=== PATIENT | female | born 1950 | race Caucasian/White ===

== ENCOUNTER → 2018-05-20 | Outpatient (CLI) | payer MEDICARE, OTHER ==
--- NOTE | 2018-05-20 15:49 | REP ---
Chest x-ray: Two views. History: Chest and back pain. Findings: The patient is status post median sternotomy and aortic valve replacement. The lungs are well inflated and clear. Pleural angles are sharp. Heart size is normal. The aorta is somewhat tortuous. There are degenerative changes in the thoracic spine. Impression: Status post aortic valve replacement. Otherwise no active disease. Electronically Signed by Dom Deluca MD 05/20/2018 03:40 P
== END ==
LOC: M RAD 15:15
PROVIDERS: ATTEND Physician Assistant
DX: M54.5 Low back pain (principal); R07.9 Chest pain, unspecified

== ENCOUNTER → 2018-06-04 | Outpatient (REF) | payer MEDICARE, OTHER ==
[2018-06-04 10:11] LABS: HEMATOCRIT 39.2 % (36.0-47.0); HEMOGLOBIN 12.6 g/dl (12.0-15.5); MEAN CORPUSCULAR HEMOGLOBIN 31.5 pg (27.0-33.0); MEAN CORPUSCULAR HGB CONC 32.1 g/dl (32.0-36.5); PLATELET COUNT, AUTOMATED 197 10^3/uL (150-450); WHITE BLOOD COUNT 5.2 10^3/uL (4.0-10.0)
[2018-06-04 10:29] LABS: ERYTHROCYTE SEDIMENTATION RATE 5 mm/hr (0-30)
[2018-06-04 10:34] LABS: ALBUMIN 3.6 GM/DL (3.2-5.2); ALT/SGPT 28 U/L (12-78); BILIRUBIN,TOTAL 0.3 MG/DL (0.2-1.0); BLOOD UREA NITROGEN 14 MG/DL (7-18); CALCIUM LEVEL 8.3 MG/DL (8.8-10.2); CARBON DIOXIDE LEVEL 28 MEQ/L (21-32); CHLORIDE LEVEL 110 MEQ/L (98-107); CHOLESTEROL LEVEL 233 MG/DL (<200); CHOLESTEROL RISK RATIO 2.198 (<5); CREATININE FOR GFR 0.78 MG/DL (0.55-1.30); GLOMERULAR FILTRATION RATE > 60.0 (>45); GLUCOSE, FASTING 84 MG/DL (70-100); HDL CHOLESTEROL 106 MG/DL (>40); LDL CHOLESTEROL 113 MG/DL (<100); NON-HDL-C 127 MG/DL; POTASSIUM SERUM 4.1 MEQ/L (3.5-5.1); SODIUM LEVEL 146 MEQ/L (136-145); TRIGLYCERIDES LEVEL 69 MG/DL (<150)
[2018-06-04 11:52] LABS: TOTAL 25(OH) VITAMIN D 53.8 NG/ML (30.0-100.0); VITAMIN B12 LEVEL 258 PG/ML
[2018-06-04 11:54] LABS: FOLATE 15.1 NG/ML
== END ==
LOC: M SFHCPLAZ 08:11
PROVIDERS: ATTEND Nurse Practitioner Family
DX: J30.89 Other allergic rhinitis (principal); L40.50 Arthropathic psoriasis, unspecified; M45.0 Ankylosing spondylitis of multiple sites in spine; E78.2 Mixed hyperlipidemia; R41.89 Other symptoms and signs involving cognitive functions and awareness

== ENCOUNTER 2018-06-21 08:22 | Emergency (ER) | payer MEDICARE, OTHER ==
[~2018-06-21] VITALS: Ht 165.1 cm; Wt 72.7 kg
[2018-06-21 08:52] LABS: BASO % 0.7 % (0.0-1.0); EOS % 0.7 % (0.0-3.0); HEMOGLOBIN 13.1 g/dl (12.0-15.5); LYMPH # 0.3 10^3/uL (1.5-4.5); MEAN CORPUSCULAR HEMOGLOBIN 32.3 pg (27.0-33.0); MEAN CORPUSCULAR HGB CONC 33.6 g/dl (32.0-36.5); MEAN CORPUSCULAR VOLUME 96.3 fl (80.0-96.0); MONO # 0.4 10^3/uL (0.0-0.8); MONO % 8.2 % (0.0-5.0); NEUTROPHILS # 3.5 10^3/uL (1.8-7.7); NEUTROPHILS % 82.9 % (36.0-66.0); PLATELET COUNT, AUTOMATED 148 10^3/uL (150-450); RED BLOOD COUNT 4.05 10^6/uL (4.00-5.40); WHITE BLOOD COUNT 4.3 10^3/uL (4.0-10.0)
[2018-06-21] MEDS ORDERED: ACETAMINOPHEN TAB 650MG DOSE (2X325MG) PO ONE (09:00)
--- NOTE | 2018-06-21 09:03 | REP ---
CHEST, PORTABLE, SINGLE VIEW: COMPARISON: 05/20/2018 There is no evidence of acute infiltrate. No pleural effusion is seen. The heart is normal in size. The mediastinal silhouette is unremarkable. The visualized osseous structures are intact. Sternal wires are present. IMPRESSION: No acute pulmonary disease. Electronically Signed by Eric Duran MD 06/21/2018 05:36 P
[2018-06-21 09:20] LABS: ALBUMIN 3.6 GM/DL (3.2-5.2); ALT/SGPT 26 U/L (12-78); BILIRUBIN,DIRECT 0.1 MG/DL (0.0-0.2); BILIRUBIN,TOTAL 0.4 MG/DL (0.2-1.0); BLOOD UREA NITROGEN 7 MG/DL (7-18); CALCIUM LEVEL 8.5 MG/DL (8.8-10.2); CARBON DIOXIDE LEVEL 21 MEQ/L (21-32); CHLORIDE LEVEL 103 MEQ/L (98-107); CK-MB VALUE MASS < 1.0 NG/ML (<3.6); CPK CREATINE PHOSPHOKINASE 61 U/L (26-192); CREATININE FOR GFR 0.76 MG/DL (0.55-1.30); FREE T4 1.03 NG/DL (0.76-1.46); GLOMERULAR FILTRATION RATE > 60.0 (>45); GLUCOSE, FASTING 99 MG/DL (70-100); LIPASE 88 U/L (73-393); MB/CK RELATIVE INDEX 1.64 (< OR =4); NT-PRO BNP 889 PG/ML (<125); POTASSIUM SERUM 3.9 MEQ/L (3.5-5.1); SODIUM LEVEL 132 MEQ/L (136-145); TOTAL PROTEIN 6.5 GM/DL (6.4-8.2); TROPONIN I < 0.02 NG/ML (< 0.10)
[2018-06-21 09:21] LABS: INFLUENZA A AMPLIFICATION POSITIVE (NEGATIVE); INFLUENZA B AMPLIFICATION NEGATIVE (NEGATIVE)
[2018-06-21] MEDS ORDERED: FLUO40CA PO (09:24)
[2018-06-21] MEDS ORDERED: VITA200016 PO (09:24)
[2018-06-21] MEDS ORDERED: TOPI100T9 PO (09:24)
[2018-06-21] MEDS ORDERED: AZEL1SPR3 NARES (09:24)
[2018-06-21] MEDS ORDERED: WARF-23 PO (09:24)
[2018-06-21] MEDS ORDERED: DONETAB6 PO (09:24)
[2018-06-21] MEDS ORDERED: PRAZ5CAP PO (09:24)
[2018-06-21] MEDS ORDERED: BELS1TAB PO (09:24)
[2018-06-21] MEDS ORDERED: LEVOTAB10 PO (09:24)
[2018-06-21] MEDS ORDERED: TRAM50TA2 PO (09:24)
[2018-06-21] MEDS ORDERED: LIVA1TAB PO (09:24)
[2018-06-21] MEDS ORDERED: CENTCHW3 PO (09:24)
[2018-06-21] MEDS ORDERED: FLUTISP NARES (09:24)
[2018-06-21 09:45] LABS: INR 2.03; PROTHROMBIN TIME 23.3 SECONDS (12.1-14.4)
[2018-06-21] MEDS ORDERED: OSELTAMIVIR PHOSPHATE 75 MG CAP (TAMIFLU) PO ONE (09:45)
[2018-06-21 09:46] LABS: PARTIAL THROMBOPLASTIN TIME 49.5 SECONDS (25.4-37.6)
[2018-06-21] MEDS ORDERED: ISOVUE-370 76% 100ML VIAL (Q9967) As Ordered ONE (10:14)
[2018-06-21] MEDS ORDERED: OSEL75CA PO (11:02)
--- NOTE | 2018-06-21 11:20 | REP ---
CT ANGIOGRAM CHEST: TECHNIQUE: Axial contrast enhanced images from the thoracic inlet to the upper abdomen using 100 mL Isovue 370 intravenous contrast material with multiplanar reformations. There is no CT evidence of pulmonary embolism. There is no thoracic aortic aneurysm or dissection with mild scattered atherosclerotic calcifications. There is mild cardiomegaly. There is no pleural or pericardial effusion. No significant adenopathy is seen in the chest. Scattered fibrotic changes are seen in both lungs without consolidative opacity. There has been prior gastric surgery. There are degenerative changes of the spine. IMPRESSION: No CT evidence of pulmonary embolism or aortic dissection. Scattered fibrotic changes in both lungs. Mild cardiomegaly. Electronically Signed by Eric Duran MD 06/21/2018 05:39 P
[2018-06-21 12:32] VITALS: BP 135/58
--- NOTE | 2018-06-21 19:43 | ECGEPIP ---
Stationary ECG Study 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
== END 2018-06-21 12:33 | disposition home or self-care (01) ==
LOC: M ED 08:22
DX: J09.X2 Influenza due to identified novel influenza A virus with other respiratory manifestations (principal); J32.9 Chronic sinusitis, unspecified; R07.9 Chest pain, unspecified; R06.02 Shortness of breath; E78.9 Disorder of lipoprotein metabolism, unspecified; G43.909 Migraine, unspecified, not intractable, without status migrainosus; Z79.899 Other long term (current) drug therapy
CPT/HCPCS: 36415; 71045; 71275; 80048; 80076; 82550; 82553; 83690; 83880; 84439; 84443; 84484; 85025; 85610; 85730; 87502; 93005; 93041; 94760; 99285; Q9967

== ENCOUNTER → 2018-07-27 | Outpatient (CLI) | payer MEDICARE, OTHER ==
[~2018-07-27] MED LIST: AZEL1SPR3 NARES; BELS1TAB PO; CENTCHW3 PO; DONETAB6 PO; FLUO40CA PO; FLUTISP NARES; LEVOTAB10 PO; LIVA1TAB PO; OSEL75CA PO; PRAZ5CAP PO; TOPI100T9 PO; TRAM50TA2 PO; VITA200016 PO; WARF-23 PO
== END ==
LOC: M RAD 15:26
PROVIDERS: ATTEND Nurse Practitioner Family
DX: R55 Syncope and collapse (principal); Z53.8 Procedure and treatment not carried out for other reasons

== ENCOUNTER → 2018-07-27 | Outpatient (CLI) | payer MEDICARE, OTHER ==
[~2018-07-27] MED LIST changes: +VITA100T12 PO; +ZOLP6.25 PO
--- NOTE | 2018-07-27 17:06 | REP ---
CT study of the cervical spine without contrast: History: Unspecified fall. Neck pain. No comparison cervical spine imaging. Technique: Helical scanning is acquired and overlapping 2 mm high resolution axial images were generated and reviewed at bone and soft tissue window settings. Coronal and sagittal multiplanar re-formations images are generated. CT findings: There are degenerative disc disease changes at C5-6, C6-7, and, to some degree at C7-T1. There is a central focal disc protrusion with associated spurring at the C6-7 level indenting the ventral margin of the spinal canal. Osteoarthritic facet disease is seen throughout the mid cervical spine facets bilaterally. There is osteoarthritis at the C1-C2 articulation. There is no evidence of cervical spine element fracture. No skull base fracture is seen. Cervical vertebral body heights are preserved. Alignment is normal. Facet joints are normally aligned bilaterally at each cervical level on multiplanar re-formations images. There is no evidence of intraspinal or paraspinal hematoma. No extra vertebral abnormality is seen. Impression: Fairly advanced degenerative spondylosis. Otherwise negative CT study of the cervical spine without contrast. No fracture seen. Electronically Signed by Dom Deluca MD 07/27/2018 04:58 P
--- NOTE | 2018-07-27 17:08 | REP ---
CT of the brain without IV contrast: There are no comparisons. There is no subdural or epidural hematoma. There is no intraparenchymal or subarachnoid hemorrhage. There is no edema, mass effect or midline shift. The ventricles are normal size and midline. The visualized paranasal sinuses and mastoid air cells are clear. Impression: There is no acute hemorrhage. There is no edema, mass effect or midline shift. Essentially negative CT study of the brain. Electronically Signed by Eric Abreu MD 07/27/2018 04:59 P
== END ==
LOC: M RAD 16:14
PROVIDERS: ATTEND Nurse Practitioner Family
DX: M47.892 Other spondylosis, cervical region (principal); R55 Syncope and collapse; W19.XXXA Unspecified fall, initial encounter; Y92.009 Unspecified place in unspecified non-institutional (private) residence as the place of occurrence of the external cause
CPT/HCPCS: 70450; 72125; 85610; G0463

== ENCOUNTER 2018-08-02 15:23 | Emergency (ER) | payer MEDICARE, OTHER ==
[~2018-08-02] VITALS: Ht 165.1 cm; Wt 72.7 kg
[~2018-08-02 15:23] MED LIST changes: -VITA100T12 PO; -ZOLP6.25 PO
[2018-08-02] MEDS ORDERED: ZOLP6.25 PO (16:04)
[2018-08-02] MEDS ORDERED: VITA100T12 PO (16:04)
--- NOTE | 2018-08-02 16:39 | REP ---
CT Head without contrast HISTORY: Headache COMPARISON: 07/27/2018 There is no intraparenchymal hemorrhage, acute infarct, mass or midline shift. The ventricular system and cortical sulci are dilated consistent with minimal volume loss . There is no extra cerebral collection. There is no fracture. Minimal mucosal thickening is present in the right ethmoid sinus. IMPRESSION: Minimal volume loss. Electronically Signed by Ammon Colunga MD 08/02/2018 04:30 P
[2018-08-02] MEDS ORDERED: ACETAMINOPHEN 500 MG TAB PO ONE (16:45)
[2018-08-02] MEDS ORDERED: diphenhydrAMINE INJ 50MG/ML VIAL (J1200) IV ONE (16:45)
[2018-08-02] MEDS ORDERED: METOCLOPRAMIDE INJ 10MG/2ML VIAL (J2765) IV ONE (16:45)
[2018-08-02 16:51] LABS: HEMATOCRIT 38.6 % (36.0-47.0); HEMOGLOBIN 12.5 g/dl (12.0-15.5); MEAN CORPUSCULAR HEMOGLOBIN 31.4 pg (27.0-33.0); MEAN CORPUSCULAR HGB CONC 32.4 g/dl (32.0-36.5); PLATELET COUNT, AUTOMATED 174 10^3/uL (150-450); RED BLOOD COUNT 3.98 10^6/uL (4.00-5.40); WHITE BLOOD COUNT 5.3 10^3/uL (4.0-10.0)
[2018-08-02 16:54] LABS: BLOOD UREA NITROGEN 14 MG/DL (7-18); CALCIUM LEVEL 8.3 MG/DL (8.8-10.2); CARBON DIOXIDE LEVEL 23 MEQ/L (21-32); CHLORIDE LEVEL 112 MEQ/L (98-107); GLOMERULAR FILTRATION RATE > 60.0 (>45); GLUCOSE, FASTING 85 MG/DL (70-100); POTASSIUM SERUM 3.9 MEQ/L (3.5-5.1); SODIUM LEVEL 142 MEQ/L (136-145)
[2018-08-02 17:09] LABS: INR 1.89
--- NOTE | 2018-08-02 18:43 | REPVR ---
EXAM: MR Head Without Contrast EXAM DATE/TIME: 08/02/2018 5:56 PM CLINICAL HISTORY: 68 years old, female; Pain; Headache; Vascular; Additional info: Right sided headache; Pronator drift TECHNIQUE: Imaging protocol: MR of the head without contrast. COMPARISON: MRA BRAIN W/O CONTRAST 08/02/2018 5:47 PM FINDINGS: Brain: There is no evidence of infarct, beckwith-white matter differentiation is preserved. There is no hemorrhage or extra-axial collection. There is no mass. DWI images demonstrate no evidence of acute infarct. Gradient echo images demonstrate a punctate hypointense focus adjacent to the frontal horn of the left lateral ventricle and possible punctate old hemorrhage. No acute hemorrhage. No extra-axial collection. There is no mass. Ventricles: There is no hydrocephalus. Bones/joints: Unremarkable. Soft tissues: Normal. Sinuses: There is minimal ethmoid sinus mucosal thickening. No air-fluid levels. Mastoid air cells: Normal as visualized. No mastoid effusion. Orbits: Unremarkable. Other vasculature: There are no abnormal flow voids. IMPRESSION: No acute intracranial lesion or injury. Electronically signed by: Parth Mills On 08/02/2018 18:43:12 PM
--- NOTE | 2018-08-02 18:46 | REPVR ---
EXAM: MR Angiogram Head Without Contrast, Arteries EXAM DATE/TIME: 08/02/2018 5:56 PM CLINICAL HISTORY: 68 years old, female; Signs and symptoms; Headache; Additional info: Right sided headache; Pronator drift TECHNIQUE: Imaging protocol: MR angiogram head without contrast. Exam focused on the arteries. COMPARISON: CT Head without contrast 08/02/2018 4:05 PM FINDINGS: Right internal carotid artery: Unremarkable. Intracranial segment is patent with no significant stenosis. No aneurysm. Right anterior cerebral artery: Unremarkable. No occlusion or significant stenosis. No aneurysm. Right middle cerebral artery: Unremarkable. No occlusion or significant stenosis. No aneurysm. Right posterior cerebral artery: Unremarkable. No occlusion or significant stenosis. No aneurysm. Right vertebral artery: Unremarkable. No occlusion or significant stenosis. No aneurysm. Left internal carotid artery: Unremarkable. Intracranial segment is patent with no significant stenosis. No aneurysm. Left anterior cerebral artery: Unremarkable. No occlusion or significant stenosis. No aneurysm. Left middle cerebral artery: Unremarkable. No occlusion or significant stenosis. No aneurysm. Left posterior cerebral artery: Unremarkable. No occlusion or significant stenosis. No aneurysm. Left vertebral artery: Unremarkable. No occlusion or significant stenosis. No aneurysm. Basilar artery: Unremarkable. No occlusion or significant stenosis. No aneurysm. IMPRESSION: Normal brain MRA. Electronically signed by: Parth Mills On 08/02/2018 18:46:03 PM
[2018-08-02] MEDS ORDERED: MORPHINE 4 MG/ML 1ML VIAL/SYRINGE (J2270) IV ONE (19:00)
[2018-08-02 19:42] VITALS: BP 157/74
== END 2018-08-02 20:04 | disposition home or self-care (01) ==
LOC: M ED 15:23
DX: R51 Headache (principal); H11.31 Conjunctival hemorrhage, right eye; G56.80 Other specified mononeuropathies of unspecified upper limb; M06.9 Rheumatoid arthritis, unspecified; E78.5 Hyperlipidemia, unspecified; G47.00 Insomnia, unspecified; F79 Unspecified intellectual disabilities; Z79.01 Long term (current) use of anticoagulants
CPT/HCPCS: 36415; 70450; 70544; 70551; 80048; 85027; 85610; 85730; 96374; 96375; 99284; J1200; J2270; J2765

== ENCOUNTER 2018-08-31 12:45 | Day surgery (SDC) | payer MEDICARE, OTHER ==
[~2018-08-31] VITALS: Ht 162.6 cm; Wt 77.1 kg
[~2018-08-31 12:45] MED LIST changes: +LR 1,000 ML IV ONE; +MULTCAP PO; +PROAAER10 INH; +VITA100T12 PO; +ZOLP6.25 PO
[2018-08-31 13:30] LABS: INR 2.72; PROTHROMBIN TIME 29.4 SECONDS (12.1-14.4)
[2018-08-31] MEDS ORDERED: fentaNYL 100 MCG/2 ML INJECTION (J3010) As Ordered ONE (14:04)
[2018-08-31] MEDS ORDERED: PROPOFOL 200 MG/20 ML VIAL As Ordered ONE (14:04)
[2018-08-31] MEDS ORDERED: LIDOCAINE 2% INJ 100 MG/5 ML SDV (FOR ANES.) As Ordered ONE (14:04)
[2018-08-31] MEDS ORDERED: MIDAZOLAM INJ 2 MG/2 ML VIAL (J2250) As Ordered ONE (14:04)
[2018-08-31] MEDS ORDERED: LIDOCAINE 1% SDV INJ 30 ML VIAL As Ordered ONE (14:28)
[2018-08-31] MEDS ORDERED: ONDANSETRON 4MG/2ML VIAL (J2405) As Ordered ONE (15:03)
--- NOTE | 2018-08-31 15:55 | RO ---
DATE OF PROCEDURE: 08/31/2018 PREOPERATIVE DIAGNOSIS: Unexplained syncope. POSTOPERATIVE DIAGNOSIS: Unexplained syncope. PROCEDURE PERFORMED: Implantation of a implantable loop recorder ([employer]tr[employer]). SURGEON: Alon Taylor MD STERILE PROCESSING TECH: None. ANESTHESIA: Lidocaine 1% local/monitored anesthetic care. FINDINGS: Unexplained syncope. SPECIMENS: None. ESTIMATED BLOOD LOSS: Less than 3 mL. No blood products replaced. No drains. No complications. PROCEDURE DESCRIPTION: Patient was prepped and draped over the left anterior chest and sternal region. Lidocaine 1% was used for local anesthetic. An incision was made with a #15 scalpel blade just less than a centimeter in length at the left fourth interspace 1 inch lateral to the left parasternal border. The guide on the insertion tool was placed into the incision and advanced in a left lateral-caudal direction parallel to the rib cage. The insertion tool was rotated 180 degrees. The plunger was then placed into the insertion tool and was used to advance the implantable loop recorder into the fatty subcutaneous layer. The plunger was then removed and then the insertion tool was removed. The initial R wave measured 1.55 mV. The incision was then temporarily approximated using a subcuticular stitch consisting of #4-0 Biosyn with the ends of the incision protruding 1 cm lateral to the ends of the incision on both sides. Next, three layers of Dermabond was applied. The Biosyn suture was then pulled through the incision and removed from the incision in its entirety.
[2018-08-31] MEDS ORDERED: ACETAMINOPHEN TAB 650MG DOSE (2X325MG) As Ordered ONE (16:00)
[2018-08-31] MEDS ORDERED: LR 1,000 ML IV SCH (16:15)
[2018-08-31] MEDS ORDERED: ONDANSETRON 4MG/2ML VIAL (J2405) IV PRN (16:15)
[2018-08-31] MEDS ORDERED: PERCOCET 5MG/325MG TAB PO PRN (16:15)
[2018-08-31] MEDS ORDERED: ACETAMINOPHEN TAB 650MG DOSE (2X325MG) PO PRN (16:15)
[2018-08-31 16:26] VITALS: BP 167/72
== END 2018-08-31 16:39 | disposition home or self-care (01) ==
LOC: M SDC 12:45
PROVIDERS: ATTEND Internal Medicine Cardiovascular Disease
DX: R55 Syncope and collapse (principal); J45.909 Unspecified asthma, uncomplicated; F32.9 Major depressive disorder, single episode, unspecified; Z79.01 Long term (current) use of anticoagulants; Z79.899 Other long term (current) drug therapy; Z95.2 Presence of prosthetic heart valve
CPT/HCPCS: 33285; 36415; 85610; C1764; J2250; J2405; J3010

== ENCOUNTER → 2018-09-09 | Outpatient (CLI) | payer MEDICARE, OTHER ==
[~2018-09-09] MED LIST changes: -LR 1,000 ML IV ONE
--- NOTE | 2018-09-09 11:14 | REP ---
Clinical: Cough . Comparison: 05/20/2018 . Technique: PA and lateral. Findings: The mediastinum and cardiac silhouette are normal. The lung gale are clear and without acute consolidation, effusion, or pneumothorax. The skeletal structures are intact and normal. Evidence of prior sternotomy and aortic valve repair. Loop recorder identified. Impression: 1. No acute cardiopulmonary process. Electronically Signed by Ric Lopez MD 09/09/2018 11:06 A
== END ==
LOC: M RAD 09:32
PROVIDERS: ATTEND Family Medicine
DX: R05 Cough (principal)

== ENCOUNTER 2018-09-15 12:12 | Emergency (ER) | payer MEDICARE, OTHER ==
[~2018-09-15] VITALS: Ht 165.1 cm; Wt 77.3 kg
[2018-09-15] MEDS ORDERED: METOCLOPRAMIDE INJ 10MG/2ML VIAL (J2765) IV ONE (13:15)
[2018-09-15] MEDS ORDERED: KETOROLAC 30 MG/ML VIAL (J1885) IV ONE (13:15)
--- NOTE | 2018-09-15 13:28 | REP ---
Clinical: acute headaches to the . Comparison: 08/02/2018 . Findings: The ventricles, sulci, and cisterns are normal in position and appearance. Duran-white differentiation is maintained. No acute intracranial hemorrhage, mass/mass effect, pathology or trauma/injury. No evidence for acute infarction. No extra-axial fluid collection. Calvarium is intact. Paranasal sinuses and mastoid air cells are clear. Impression: Normal noncontrast head CT. No evidence for acute intracranial pathology or trauma/injury. Electronically Signed by Ric Lopez MD 09/15/2018 01:20 P
[2018-09-15 15:30] VITALS: BP 144/66
== END 2018-09-15 15:51 | disposition home or self-care (01) ==
LOC: M ED 12:12
DX: G43.909 Migraine, unspecified, not intractable, without status migrainosus (principal); Z87.820 Personal history of traumatic brain injury; Z79.01 Long term (current) use of anticoagulants; Z79.51 Long term (current) use of inhaled steroids; Z79.899 Other long term (current) drug therapy; Z95.4 Presence of other heart-valve replacement; Z98.84 Bariatric surgery status
CPT/HCPCS: 70450; 85610; 96374; 96375; 99284; G0463; J1885; J2765

== ENCOUNTER → 2018-09-28 | Outpatient (REF) | payer MEDICARE, OTHER ==
[2018-09-28 15:50] LABS: APPEARANCE, URINE HAZY (CLEAR); BACTERIA, URINE AUTO NEGATIVE (NEGATIVE); BILIRUBIN, URINE AUTO NEGATIVE (NEGATIVE); BLOOD, URINE BLOOD NEGATIVE (NEGATIVE); CALCIUM OXALATE CRYSTALS SMALL; COLOR, URINE YELLOW (YELLOW); GLUCOSE, URINE (UA) AUTO NEGATIVE (NEGATIVE); KETONE, URINE AUTO TRACE mg/dL (NEGATIVE); LEUKOCYTE ESTERASE, URINE AUTO NEGATIVE (NEGATIVE); NITRITE, URINE AUTO NEGATIVE (NEGATIVE); PROTEIN, URINE AUTO NEGATIVE (NEGATIVE); RBC, URINE AUTO 0 /HPF (0-3); SPECIFIC GRAVITY URINE AUTO 1.018 (1.002-1.035); SQUAMOUS EPITHELIAL CELL UR AU 0 /HPF (0-6); WBC, URINE AUTO 1 /HPF (0-3)
[2018-09-28 15:54] LABS: BASO % 0.8 % (0.0-1.0); EOS # 0.1 10^3/uL (0.0-0.50); HEMATOCRIT 41.2 % (36.0-47.0); LYMPH # 1.2 10^3/uL (1.5-4.5); LYMPH % 22.8 % (24.0-44.0); MEAN CORPUSCULAR HEMOGLOBIN 31.5 pg (27.0-33.0); MEAN CORPUSCULAR HGB CONC 31.6 g/dl (32.0-36.5); MEAN CORPUSCULAR VOLUME 99.8 fl (80.0-96.0); MONO # 0.4 10^3/uL (0.0-0.8); MONO % 7.5 % (0.0-5.0); NEUTROPHILS # 3.4 10^3/uL (1.8-7.7); NEUTROPHILS % 66.7 % (36.0-66.0); PLATELET COUNT, AUTOMATED 191 10^3/uL (150-450); RED BLOOD COUNT 4.13 10^6/uL (4.00-5.40); WHITE BLOOD COUNT 5.1 10^3/uL (4.0-10.0)
[2018-09-28 16:09] LABS: INR 2.27; PROTHROMBIN TIME 25.5 SECONDS (12.1-14.4)
[2018-09-28 16:20] LABS: ALBUMIN 3.4 GM/DL (3.2-5.2); ALT/SGPT 30 U/L (12-78); BILIRUBIN,TOTAL 0.3 MG/DL (0.2-1.0); BLOOD UREA NITROGEN 12 MG/DL (7-18); CALCIUM LEVEL 8.6 MG/DL (8.8-10.2); CARBON DIOXIDE LEVEL 25 MEQ/L (21-32); CHLORIDE LEVEL 111 MEQ/L (98-107); CREATININE FOR GFR 0.93 MG/DL (0.55-1.30); GLOMERULAR FILTRATION RATE > 60.0 (>45); GLUCOSE, FASTING 110 MG/DL (70-100); LIPASE 118 U/L (73-393); POTASSIUM SERUM 3.9 MEQ/L (3.5-5.1); SODIUM LEVEL 142 MEQ/L (136-145); TOTAL PROTEIN 6.5 GM/DL (6.4-8.2)
== END ==
LOC: M SFHCPLAZ 12:35
PROVIDERS: ATTEND Family Medicine
DX: R19.7 Diarrhea, unspecified (principal); Z95.2 Presence of prosthetic heart valve; Z79.01 Long term (current) use of anticoagulants; Z51.81 Encounter for therapeutic drug level monitoring; R10.32 Left lower quadrant pain
CPT/HCPCS: 36415; 80053; 81001; 82274; 83690; 84443; 85025; 85610; 87086; G0463

== ENCOUNTER → 2018-10-05 | Outpatient (REF) | payer MEDICARE, OTHER | LOC: M SFHCPLAZ 09:56 | PROVIDERS: ATTEND Family Medicine | DX: R19.7 Diarrhea, unspecified (principal) ==

== ENCOUNTER → 2018-10-05 | Outpatient (CLI) | payer MEDICARE, OTHER ==
--- NOTE | 2018-10-05 12:05 | REP ---
Left shoulder three views: There is demineralization. The acromioclavicular glenohumeral articulations are normal. There are no calcifications. There is no fracture or dislocation. Impression: Demineralization, otherwise negative left shoulder. Electronically Signed by Eric Abreu MD 10/05/2018 11:57 A
--- NOTE | 2018-10-05 12:12 | REP ---
Bilateral hands: Right hand four views: There is joint space narrowing of the DIP and PIP articulations compatible with osteoarthritic change. There is osteoarthritis at the thumb CMC articulation. The MCP articulations are unremarkable. Impression: Osteoarthritis as described. Left hand four views: There is joint space narrowing of the PIP and DIP articulations compatible with osteoarthritic change. There is mild osteoarthritis at the thumb CMC articulation. The MCP articulations are unremarkable. Impression: Osteoarthritis as described. Electronically Signed by Eric Abreu MD 10/05/2018 12:04 P
--- NOTE | 2018-10-05 12:18 | REP ---
Right hip two views : There is no fracture or dislocation. Mineralization and joint spaces are normal. There are no calcifications or foreign bodies. Impression: Negative right hip . Electronically Signed by Eric Abreu MD 10/05/2018 12:10 P
--- NOTE | 2018-10-05 12:20 | REP ---
Sacroiliac joint series four views: The sacroiliac joints are not fused. There is no cortical eburnation or erosion. Mineralization is normal. There are pelvic calcifications, likely phleboliths. Impression: Negative sacroiliac joint series. No Electronically Signed by Eric Abreu MD 10/05/2018 12:11 P
== END ==
LOC: M SMT 10:26
PROVIDERS: ATTEND Internal Medicine Rheumatology
DX: M19.041 Primary osteoarthritis, right hand (principal); M19.042 Primary osteoarthritis, left hand; M25.512 Pain in left shoulder; M79.643 Pain in unspecified hand; M25.551 Pain in right hip; Z87.2 Personal history of diseases of the skin and subcutaneous tissue; Z87.39 Personal history of other diseases of the musculoskeletal system and connective tissue
CPT/HCPCS: 36415; 72202; 73030; 73130; 73502; 81374; 85652; 86140; 87507; G0463

== ENCOUNTER → 2018-10-11 | Outpatient (CLI) | payer MEDICARE, OTHER ==
--- NOTE | 2018-10-11 14:27 | REP ---
Clinical: Left lower quadrant pain. Technique: Transabdominal pelvic ultrasound followed by transvaginal examination for better evaluation of the adnexa with color Doppler evaluation. Findings: Evidence of prior hysterectomy. No pelvic free fluid or adnexal mass lesion noted. The bilateral ovaries are normal in appearance and vascularity without evidence for torsion. Right ovary measures 1.7 x 1.9 x 1.8 cm; RI 0.59. Left ovary measures 1.5 x 1.0 x 1.3 cm; RI 0.70. Bladder is normal and measures 6.1 x 5.0 x 6.4 cm. Impression: 1. Evidence of prior hysterectomy. 2. Normal bilateral ovaries without torsion. Electronically Signed by Ric Lopez MD 10/11/2018 02:19 P
== END ==
LOC: M RAD 13:15
PROVIDERS: ATTEND Family Medicine
DX: R10.32 Left lower quadrant pain (principal)

== ENCOUNTER → 2018-10-11 | Outpatient (CLI) | payer MEDICARE, OTHER ==
[2018-10-11 13:29] LABS: BASO % 0.7 % (0.0-1.0); EOS # 0.1 10^3/uL (0.0-0.50); EOS % 1.7 % (0.0-3.0); HEMATOCRIT 39.8 % (36.0-47.0); HEMOGLOBIN 13.1 g/dl (12.0-15.5); LYMPH # 1.5 10^3/uL (1.5-4.5); LYMPH % 24.9 % (24.0-44.0); MEAN CORPUSCULAR HEMOGLOBIN 32.2 pg (27.0-33.0); MEAN CORPUSCULAR HGB CONC 32.9 g/dl (32.0-36.5); MEAN CORPUSCULAR VOLUME 97.8 fl (80.0-96.0); MONO # 0.4 10^3/uL (0.0-0.8); MONO % 6.9 % (0.0-5.0); NEUTROPHILS # 3.8 10^3/uL (1.8-7.7); NEUTROPHILS % 65.6 % (36.0-66.0); PLATELET COUNT, AUTOMATED 196 10^3/uL (150-450); RED BLOOD COUNT 4.07 10^6/uL (4.00-5.40); WHITE BLOOD COUNT 5.8 10^3/uL (4.0-10.0)
[2018-10-11 13:57] LABS: ERYTHROCYTE SEDIMENTATION RATE 6 mm/hr (0-30)
[2018-10-11 14:01] LABS: ALBUMIN 3.6 GM/DL (3.2-5.2); ALT/SGPT 30 U/L (12-78); BILIRUBIN,TOTAL 0.3 MG/DL (0.2-1.0); BLOOD UREA NITROGEN 13 MG/DL (7-18); CALCIUM LEVEL 9.1 MG/DL (8.8-10.2); CARBON DIOXIDE LEVEL 24 MEQ/L (21-32); CHLORIDE LEVEL 112 MEQ/L (98-107); CREATININE FOR GFR 0.83 MG/DL (0.55-1.30); GLOMERULAR FILTRATION RATE > 60.0 (>45); GLUCOSE, FASTING 84 MG/DL (70-100); RHEUMATOID FACTOR QUANT < 10.0 IU/ML (<15.0); SODIUM LEVEL 144 MEQ/L (136-145); TOTAL PROTEIN 6.4 GM/DL (6.4-8.2)
[2018-10-11 14:02] LABS: TOTAL 25(OH) VITAMIN D 46.4 NG/ML (30.0-100.0)
[2018-10-12 14:08] LABS: ANTINUCLEAR ANTIBODIES DIRECT Negative (Negative)
== END ==
LOC: M LAB 12:59
PROVIDERS: ATTEND Psychiatry & Neurology Neurology
DX: R51 Headache (principal); R10.32 Left lower quadrant pain

== ENCOUNTER → 2018-10-19 | Outpatient (CLI) | payer MEDICARE, OTHER ==
[~2018-10-19] MED LIST changes: +GASTROGRAFIN SOLUTION 30ML (Q9963) As Ordered ONE; +ISOVUE-370 76% 100ML VIAL (Q9967) As Ordered ONE
--- NOTE | 2018-10-19 16:08 | REP ---
Clinical: Right lower quadrant pain. Technique: Axial contrast enhanced images from the lung bases to the pubic symphysis using oral (per protocol) and 100 ml Isovue 370 intravenous contrast material with coronal and sagittal re-formations. Findings: Liver, spleen, pancreas, gallbladder, bilateral adrenal glands and kidneys are normal. Evidence for prior gastric bypass surgery. Small and large bowel without obstruction or acute inflammatory process. Normal cecum and terminal ileum identified in the right lower quadrant. The patient gives a history of prior appendectomy. Pelvis demonstrates collapsed bladder and evidence of prior hysterectomy. No ascites. No free air. No adenopathy. Abdominal aorta without aneurysm or dissection. Surrounding musculoskeletal structures demonstrate degenerative changes without focal osseous abnormality. Lung bases are clear. Impression: No acute abdominopelvic pathology appreciated. Electronically Signed by Ric Lopez MD 10/19/2018 03:58 P
== END ==
LOC: M RAD 13:34
PROVIDERS: ATTEND Family Medicine
DX: R10.31 Right lower quadrant pain (principal); R19.7 Diarrhea, unspecified; Z98.84 Bariatric surgery status
CPT/HCPCS: 74177; G0463; Q9963; Q9967

== ENCOUNTER → 2018-11-05 | Outpatient (CLI) | payer MEDICARE, OTHER ==
[~2018-11-05] MED LIST changes: -GASTROGRAFIN SOLUTION 30ML (Q9963) As Ordered ONE; -ISOVUE-370 76% 100ML VIAL (Q9967) As Ordered ONE
--- NOTE | 2018-11-15 07:52 | REP ---
BILATERAL SCREENING DIGITAL MAMMOGRAM WITH 3D TOMOSYNTHESIS: There are no palpable abnormalities or other breast complaints. The the patient states she has not had a clinical breast examination in over a year. The the patient states she performs self-breast examinations four times per year. The Tyrer-Cuzick Score is: 5.3% . Comparison is the outside study dated 12/02/2016 from [facility], [place], [place]. There are scattered areas of fibroglandular density. There is no dominant mass, micro calcific cluster or architectural distortion that would indicate malignancy. There are stable intramammary lymph nodes in the upper outer quadrant in each breast. There is a loop recorder inferomedially in the left breast, not present previously. There are no additional findings on 3D tomosynthesiss. There is no change from the prior study, except for the loop recorder. Impression: BIRADS/ACR category 2 mammogram. Benign findings . Recommendation: Routine annual screening mammography. This mammogram was interpreted with the aid of a FDA approved computer-aided detection system. A. Negative mammogram reports should not delay biopsy if a dominant or clinically suspicious mass is present. B. Not all breast cancers are identified by mammography or tomosynthesis. C. Adenosis and dense breasts may obscure an underlying neoplasm. Patient letter M1. Electronically Signed by Eric Abreu MD 11/14/2018 10:54 A
== END ==
LOC: M WHC 12:31
PROVIDERS: ATTEND Family Medicine
DX: Z12.31 Encounter for screening mammogram for malignant neoplasm of breast (principal); Z98.890 Other specified postprocedural states

== ENCOUNTER → 2018-12-02 | Outpatient (REF) | payer MEDICARE, OTHER ==
[~2018-12-02] MED LIST changes: +LOVE1INJ SC; +XYZASOL2 PO
[2018-12-03 10:36] LABS: HIV 1&2 SCREEN CENTAUR NEGATIVE (NEGATIVE)
== END ==
LOC: M SFHCPLAZ 15:21
PROVIDERS: ATTEND Dermatology
DX: L29.9 Pruritus, unspecified (principal)

== ENCOUNTER → 2018-12-08 | Outpatient (CLI) | payer MEDICARE, OTHER ==
[~2018-12-08] MED LIST changes: -LOVE1INJ SC
--- NOTE | 2018-12-08 15:53 | REP ---
HISTORY: Pleuritic chest pain. COMPARISON: 09/09/2018 Note is again made of previous median sternotomy. The heart is not enlarged. There is an unchanged implantable device in the left anterior chest wall. The lung gale are clear and stable. The pleural angles are sharp. There is no significant change in the appearance of the osseous structures. IMPRESSION: No acute cardiopulmonary disease or significant change from the prior exam. Electronically Signed by Tray Carvalho DO 12/08/2018 05:19 P
== END ==
LOC: M RAD 13:54
PROVIDERS: ATTEND Dermatology
DX: L29.9 Pruritus, unspecified (principal)

== ENCOUNTER 2018-12-24 10:35 | Day surgery (SDC) | payer MEDICARE, OTHER ==
[~2018-12-24] VITALS: Ht 167.6 cm; Wt 74.3 kg
[~2018-12-24 10:35] MED LIST changes: +LIDOCAINE 2% INJ 100 MG/5 ML SDV (FOR ANES.) As Ordered ONE; +NS 1,000 ML IV ONE; +PROPOFOL 200 MG/20 ML VIAL As Ordered ONE
[2018-12-24] MEDS ORDERED: LOVE1INJ SC (11:06)
[2018-12-24] MEDS ORDERED: fentaNYL 100 MCG/2 ML INJECTION (J3010) As Ordered ONE (11:52)
--- NOTE | 2018-12-24 13:35 | ROOR ---
Patient Name: Rebecca Whitlock Procedure Date: 12/24/2018 12:35 PM Date of : 1950 Age: 68 Room: [facility] Gender: Female Note Status: Finalized Procedure: Upper GI endoscopy Indications: Dyspepsia Providers: Camron Holley MD Referring MD: Mary Alice Sutherland MD Requesting Provider: Medicines: Monitored Anesthesia Care Complications: No immediate complications. Procedure: Pre-Anesthesia Assessment: - Prior to the procedure, a History and Physical was performed, and patient medications and allergies were reviewed. The patient is competent. The risks and benefits of the procedure and the sedation options and risks were discussed with the patient. All questions were answered and informed consent was obtained. Patient identification and proposed procedure were verified by the physician, the nurse and the anesthesiologist in the procedure room. Mental Status Examination: alert and oriented. Airway Examination: normal oropharyngeal airway and neck mobility. Respiratory Examination: clear to auscultation. CV Examination: normal. Prophylactic Antibiotics: The patient does not require prophylactic antibiotics. Prior Anticoagulants: The patient has taken Coumadin (warfarin), last dose was 5 days prior to procedure. ASA Grade Assessment: II - A patient with mild systemic disease. After reviewing the risks and benefits, the patient was deemed in satisfactory condition to undergo the procedure. The anesthesia plan was to use monitored anesthesia care (MAC). Immediately prior to administration of medications, the patient was re-assessed for adequacy to receive sedatives. The heart rate, respiratory rate, oxygen saturations, blood pressure, adequacy of pulmonary ventilation, and response to care were monitored throughout the procedure. The physical status of the patient was re-assessed after the procedure. The Endoscope was introduced through the mouth, and advanced to the second part of duodenum. The upper GI endoscopy was accomplished without difficulty. The patient tolerated the procedure well. Findings: The Z-line was regular and was found 39 cm from the incisors. Evidence of a gastric bypass was found in the gastric body. This was characterized by healthy appearing mucosa. Biopsies were taken with a cold forceps for Helicobacter pylori testing. Evidence of a gastric bypass was found. A gastric pouch with a small size was found. The staple line appeared intact. The gastrojejunal anastomosis was characterized by healthy appearing mucosa. The fyfmn-ze-fubwouf limb measured 3 cm from the anastomosis and. The jejunojejunal anastomosis was characterized by healthy appearing mucosa. The yxjwidzc-ii-gsemqrk limb was not examined as it could not be found. The examined jejunum was normal. Biopsies for histology were taken with a cold forceps for evaluation of celiac disease. Impression: - Z-line regular, 39 cm from the incisors. - A gastric bypass was found, characterized by healthy appearing mucosa. Biopsied. - Gastric bypass with a small-sized pouch and intact staple line. Gastrojejunal anastomosis characterized by healthy appearing mucosa. - Normal examined jejunum. Biopsied. Recommendation: - Patient has a contact number available for emergencies. The signs and symptoms of potential delayed complications were discussed with the patient. Return to normal activities tomorrow. Written discharge instructions were provided to the patient. - Resume previous diet. - Resume Coumadin (warfarin) at prior dose today. - Continue present medications. - Follow an antireflux regimen. - Await pathology results. - Telephone GI clinic for pathology results in 2 weeks. - Return to primary care physician. Camron Holley MD Camron Holley MD 12/24/2018 1:34:48 PM Electronically signed by Camron Holley MD Number of Addenda: 0 Note Initiated On: 12/24/2018 12:35 PM Estimated Blood Loss: Estimated blood loss was minimal.
--- NOTE | 2018-12-24 13:38 | ROOR ---
Patient Name: Rebecca Whitlock Procedure Date: 12/24/2018 12:36 PM Date of : 1950 Age: 68 Room: [facility] Gender: Female Note Status: Finalized Procedure: Colonoscopy Indications: Screening for colorectal malignant neoplasm Providers: Camron Holley MD Referring MD: Mary Alice Sutehrland MD Requesting Provider: Medicines: Monitored Anesthesia Care Complications: No immediate complications. Procedure: Pre-Anesthesia Assessment: - Prior to the procedure, a History and Physical was performed, and patient medications and allergies were reviewed. The patient is competent. The risks and benefits of the procedure and the sedation options and risks were discussed with the patient. All questions were answered and informed consent was obtained. Patient identification and proposed procedure were verified by the physician, the nurse and the anesthesiologist in the procedure room. Mental Status Examination: alert and oriented. Prophylactic Antibiotics: The patient does not require prophylactic antibiotics. Prior Anticoagulants: The patient has taken no previous anticoagulant or antiplatelet agents. ASA Grade Assessment: II - A patient with mild systemic disease. After reviewing the risks and benefits, the patient was deemed in satisfactory condition to undergo the procedure. The anesthesia plan was to use monitored anesthesia care (MAC). Immediately prior to administration of medications, the patient was re-assessed for adequacy to receive sedatives. The heart rate, respiratory rate, oxygen saturations, blood pressure, adequacy of pulmonary ventilation, and response to care were monitored throughout the procedure. The physical status of the patient was re-assessed after the procedure. The Colonoscope was introduced through the anus and advanced to the terminal ileum, with identification of the appendiceal orifice and IC valve. The colonoscopy was performed without difficulty. The patient tolerated the procedure well. The quality of the bowel preparation was good. The terminal ileum, ileocecal valve, appendiceal orifice, and rectum were photographed. Scope insertion time was 3 minutes. Scope withdrawal time was 9 minutes. The total duration of the procedure was 12 minutes. Findings: The perianal and digital rectal examinations were normal. The terminal ileum appeared normal. There was a small lipoma, 15 mm in diameter, in the transverse colon and in the ascending colon. Normal mucosa was found in the entire colon. Biopsies for histology were taken with a cold forceps from the right colon and left colon for evaluation of microscopic colitis. Verification of patient identification for the specimen was done by the physician and nurse using the patient's name, date and medical record number. Estimated blood loss was minimal. Non-bleeding external and internal hemorrhoids were found during retroflexion. The hemorrhoids were small. Impression: - The examined portion of the ileum was normal. - Small lipoma in the transverse colon and in the ascending colon. - Normal mucosa in the entire examined colon. Biopsied. - Non-bleeding external and internal hemorrhoids. Recommendation: - Patient has a contact number available for emergencies. The signs and symptoms of potential delayed complications were discussed with the patient. Return to normal activities tomorrow. Written discharge instructions were provided to the patient. - High fiber diet. - Continue present medications. - Resume Coumadin (warfarin) at prior dose today. Refer to primary physician for further adjustment of therapy. - Await pathology results. - Telephone GI clinic for pathology results in 2 weeks. - Repeat colonoscopy in 5-10 years for screening purposes. - Return to primary care physician. Camron Holley MD Camron Holley MD 12/24/2018 1:37:49 PM Electronically signed by Camron Holley MD Number of Addenda: 0 Note Initiated On: 12/24/2018 12:36 PM Estimated Blood Loss: Estimated blood loss was minimal.
[2018-12-24 15:05] VITALS: BP 175/79
--- NOTE | 2018-12-24 19:25 | ECGEPIP ---
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 Electronically Signed on 12-24-2018 19:25:51 EDT by Booker Oropeza
== END 2018-12-24 15:21 | disposition home or self-care (01) ==
LOC: M OPP 10:35
PROVIDERS: ATTEND Internal Medicine Gastroenterology
DX: K64.8 Other hemorrhoids (principal); D17.5 Benign lipomatous neoplasm of intra-abdominal organs; R10.817 Generalized abdominal tenderness; R19.7 Diarrhea, unspecified; Z98.84 Bariatric surgery status; R10.13 Epigastric pain; Z91.048 Other nonmedicinal substance allergy status; Z95.4 Presence of other heart-valve replacement; Z79.01 Long term (current) use of anticoagulants; Z79.899 Other long term (current) drug therapy
CPT/HCPCS: 43239; 45380; 88305; 93005; J3010

== ENCOUNTER 2019-04-22 16:21 | Emergency (ER) | payer MEDICARE, OTHER ==
[~2019-04-22] VITALS: Ht 165.1 cm; Wt 74.5 kg
[~2019-04-22 16:21] MED LIST changes: -LIDOCAINE 2% INJ 100 MG/5 ML SDV (FOR ANES.) As Ordered ONE; +LOVE1INJ SC; -NS 1,000 ML IV ONE; -PROPOFOL 200 MG/20 ML VIAL As Ordered ONE
[2019-04-22] MEDS ORDERED: OMEP-221 PO (16:55)
--- NOTE | 2019-04-22 17:11 | REP ---
Clinical: Chest pain . Comparison: 12/08/2018 . Findings: The mediastinum and cardiac silhouette are stable and within normal limits for portable technique. Evidence of prior sternotomy. Loop recorder noted. The lung gale demonstrate chronic interstitial changes without acute consolidation, effusion, or pneumothorax. Skeletal structures are intact. Impression: No acute cardiopulmonary process appreciated. Electronically Signed by Ric Lopez MD 04/22/2019 05:02 P
[2019-04-22 17:17] LABS: BASO % 0.7 % (0.0-1.0); EOS # 0.1 10^3/uL (0.0-0.5); HEMATOCRIT 38.7 % (36.0-47.0); HEMOGLOBIN 12.6 g/dl (12.0-15.5); LYMPH # 1.3 10^3/uL (1.5-5.0); LYMPH % 29.2 % (24.0-44.0); MEAN CORPUSCULAR HGB CONC 32.6 g/dl (32.0-36.5); MEAN CORPUSCULAR VOLUME 95.3 fl (80.0-96.0); MONO # 0.3 10^3/uL (0.0-0.8); MONO % 7.7 % (0.0-5.0); NEUTROPHILS # 2.6 10^3/uL (1.5-8.5); NEUTROPHILS % 59.2 % (36.0-66.0); PLATELET COUNT, AUTOMATED 194 10^3/uL (150-450); RED BLOOD COUNT 4.06 10^6/uL (4.00-5.40); WHITE BLOOD COUNT 4.3 10^3/uL (4.0-10.0)
[2019-04-22 17:53] LABS: BLOOD UREA NITROGEN 12 MG/DL (7-18); CALCIUM LEVEL 8.4 MG/DL (8.8-10.2); CARBON DIOXIDE LEVEL 22 MEQ/L (21-32); CHLORIDE LEVEL 111 MEQ/L (98-107); CK-MB VALUE MASS < 1.0 NG/ML (<3.6); CPK CREATINE PHOSPHOKINASE 64 U/L (26-192); CREATININE FOR GFR 0.68 MG/DL (0.55-1.30); GLOMERULAR FILTRATION RATE > 60.0 (>45); GLUCOSE, FASTING 77 MG/DL (70-100); LIPASE 127 U/L (73-393); MB/CK RELATIVE INDEX 1.56 (< OR =4); POTASSIUM SERUM 4.1 MEQ/L (3.5-5.1); SODIUM LEVEL 140 MEQ/L (136-145); TROPONIN I < 0.02 NG/ML (< 0.10)
[2019-04-22] MEDS ORDERED: ONDANSETRON 4MG/2ML VIAL (J2405) IV ONE ×2 (18:15→20:30)
[2019-04-22] MEDS ORDERED: PIPERACILLIN/TAZOBACTAM SOD 2.25 GM in D5W MINI-BAG PLUS 50 ML IV ONE (19:30)
[2019-04-22] MEDS ORDERED: VANCOMYCIN HCL 750 MG, VIAL MATE ADAPTER 1 EACH in D5W 250 ML IV ONE (19:30)
--- NOTE | 2019-04-22 19:47 | ECGEPIP ---
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
[2019-04-22] MEDS ORDERED: TIZA2CAP PO (19:56)
[2019-04-22] MEDS ORDERED: VITA100066 PO (19:56)
[2019-04-22] MEDS ORDERED: TYLE650T35 PO (19:56)
[2019-04-22] MEDS ORDERED: LEVOTAB10 PO (19:56)
[2019-04-22] MEDS ORDERED: CYAN100050 PO (19:56)
[2019-04-22] MEDS ORDERED: DONE10TA90 PO (19:56)
[2019-04-22] MEDS ORDERED: C 50TAB PO (19:56)
[2019-04-22] MEDS ORDERED: ISOVUE-370 76% 100ML VIAL (Q9967) As Ordered ONE (20:10)
[2019-04-22] MEDS ORDERED: MORPHINE 2 MG/ML 1ML VIAL (J2270) IV ONE (20:15)
[2019-04-22 20:43] LABS: INR 2.19; PARTIAL THROMBOPLASTIN TIME 36.2 SECONDS (25.0-38.4); PROTHROMBIN TIME 24.1 SECONDS (11.8-14.0)
--- NOTE | 2019-04-22 21:19 | REPVR ---
PROCEDURE INFORMATION: Exam: CT Angiography Chest With Contrast Exam date and time: 04/22/2019 8:12 PM Age: 68 years old Clinical indication: Chest pain; Additional info: Cp TECHNIQUE: Imaging protocol: Computed tomographic angiography of the chest with intravenous contrast. 3D rendering: MIP and/or 3D reconstructed images were created by the technologist. Radiation optimization: All CT scans at this facility use at least one of these dose optimization techniques: automated exposure control; mA and/or kV adjustment per patient size (includes targeted exams where dose is matched to clinical indication); or iterative reconstruction. Contrast material: ISOVUE 370; Contrast volume: 75 ml; Contrast route: IV; COMPARISON: CT ANGIO CHEST 06/21/2018 10:16 AM FINDINGS: Pulmonary arteries: Normal. No pulmonary emboli. Aorta: Unremarkable. No aortic aneurysm. No aortic dissection. Lungs: Mild hypoventilatory changes. Lungs are otherwise clear. Pleural space: Unremarkable. No pneumothorax. No pleural effusion. Heart: Prior sternotomy and aortic valve replacement. Normal heart size. Lymph nodes: Unremarkable. No enlarged lymph nodes. Bones/joints: Skeletal degenerative changes are noted. Soft tissues: Unremarkable. IMPRESSION: No acute findings. Electronically signed by: Yousuf Soto On 04/22/2019 21:19:04 PM
[2019-04-22 21:45] VITALS: BP 148/65
== END 2019-04-22 21:53 | disposition home or self-care (01) ==
LOC: M ED 16:21
DX: G89.29 Other chronic pain (principal); M54.9 Dorsalgia, unspecified; R00.1 Bradycardia, unspecified; G43.909 Migraine, unspecified, not intractable, without status migrainosus; M45.9 Ankylosing spondylitis of unspecified sites in spine; L40.52 Psoriatic arthritis mutilans; G31.84 Mild cognitive impairment of uncertain or unknown etiology; Z87.820 Personal history of traumatic brain injury; Z95.4 Presence of other heart-valve replacement; Z79.01 Long term (current) use of anticoagulants; Z79.899 Other long term (current) drug therapy; Z91.89 Other specified personal risk factors, not elsewhere classified
CPT/HCPCS: 71045; 71275; 80048; 82550; 82553; 83690; 84443; 84484; 85025; 85610; 85730; 93005; 93041; 94760; 96374; 96375; 99285; J2270; J2405; Q9967

== ENCOUNTER → 2019-05-20 | Outpatient (CLI) | payer MEDICARE, OTHER ==
[~2019-05-20] MED LIST changes: +C 50TAB PO; +CYAN100050 PO; +DONE10TA90 PO; +OMEP-221 PO; +TIZA2CAP PO; +TYLE650T35 PO; +VITA100066 PO
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
== END ==
LOC: M PAIN 11:00
PROVIDERS: ATTEND Anesthesiology
DX: M54.2 Cervicalgia (principal); M79.18 Myalgia, other site; M47.812 Spondylosis without myelopathy or radiculopathy, cervical region; Z87.820 Personal history of traumatic brain injury; Z86.69 Personal history of other diseases of the nervous system and sense organs; Z87.898 Personal history of other specified conditions; Z98.890 Other specified postprocedural states

== ENCOUNTER → 2019-05-23 | Outpatient (CLI) | payer MEDICARE, OTHER ==
[2019-05-23 09:14] LABS: BASO % 0.8 % (0.0-1.0); EOS # 0.1 10^3/uL (0.0-0.5); EOS % 2.3 % (0.0-3.0); HEMATOCRIT 43.5 % (36.0-47.0); HEMOGLOBIN 13.4 g/dl (12.0-15.5); LYMPH # 1.3 10^3/uL (1.5-5.0); LYMPH % 25.8 % (24.0-44.0); MEAN CORPUSCULAR HGB CONC 30.8 g/dl (32.0-36.5); MEAN CORPUSCULAR VOLUME 97.5 fl (80.0-96.0); MONO # 0.4 10^3/uL (0.0-0.8); NEUTROPHILS % 62.7 % (36.0-66.0); PLATELET COUNT, AUTOMATED 196 10^3/uL (150-450); RED BLOOD COUNT 4.46 10^6/uL (4.00-5.40); WHITE BLOOD COUNT 4.9 10^3/uL (4.0-10.0)
[2019-05-23 09:32] LABS: C REACTIVE PROTEIN QUANTITATIV < 0.30 MG/DL (0.00-0.30); URIC ACID 3.6 MG/DL (2.6-6.0)
[2019-05-23 09:37] LABS: ERYTHROCYTE SEDIMENTATION RATE 4 mm/hr (0-30)
== END ==
LOC: M LAB 07:56
PROVIDERS: ATTEND Family Medicine
DX: L03.012 Cellulitis of left finger (principal); M79.645 Pain in left finger(s)
CPT/HCPCS: 36415; 84550; 85025; 85610; 85652; 86140; G0463

== ENCOUNTER → 2019-05-30 | Outpatient (CLI) | payer MEDICARE, OTHER ==
[2019-05-30 14:43] LABS: PROTHROMBIN TIME 31.1 SECONDS (11.8-14.0)
== END ==
LOC: M LAB 13:35
PROVIDERS: ATTEND Family Medicine
DX: Z79.01 Long term (current) use of anticoagulants (principal); Z95.2 Presence of prosthetic heart valve; Z51.81 Encounter for therapeutic drug level monitoring

== ENCOUNTER → 2019-06-20 | Outpatient (CLI) | payer MEDICARE, OTHER ==
[2019-06-20 11:26] LABS: HEMATOCRIT 39.9 % (36.0-47.0); HEMOGLOBIN 12.9 g/dl (12.0-15.5); MEAN CORPUSCULAR HEMOGLOBIN 30.9 pg (27.0-33.0); MEAN CORPUSCULAR HGB CONC 32.3 g/dl (32.0-36.5); MEAN CORPUSCULAR VOLUME 95.5 fl (80.0-96.0); PLATELET COUNT, AUTOMATED 201 10^3/uL (150-450); RED BLOOD COUNT 4.18 10^6/uL (4.00-5.40); WHITE BLOOD COUNT 4.9 10^3/uL (4.0-10.0)
[2019-06-20 12:13] LABS: THYROID STIMULATING HORMONE 1.16 uIU/ML (0.358-3.740)
[2019-06-20 12:15] LABS: TOTAL 25(OH) VITAMIN D 34.8 NG/ML (30.0-100.0)
== END ==
LOC: M LAB 10:18
PROVIDERS: ATTEND Family Medicine
DX: R53.83 Other fatigue (principal)

== ENCOUNTER → 2019-06-23 | Outpatient (CLI) | payer MEDICARE, OTHER ==
[~2019-06-23] MED LIST changes: +BUPIVACAINE HCL 0.25% 30 ML VIAL As Ordered ONE; +TRIAMCINOLONE ACETONIDE SUSP 40 MG/ML VIAL (J3301) As Ordered ONE; +diazePAM 2 MG TAB As Ordered ONE
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
== END ==
LOC: M PAIN 12:15
PROVIDERS: ATTEND Anesthesiology
DX: M79.18 Myalgia, other site (principal); Z79.01 Long term (current) use of anticoagulants; Z79.891 Long term (current) use of opiate analgesic; Z79.899 Other long term (current) drug therapy; Z91.048 Other nonmedicinal substance allergy status
CPT/HCPCS: 20552; J3301

== ENCOUNTER 2019-07-02 17:24 | Emergency (ER) | payer MEDICARE, OTHER ==
[2019-07-02] VITALS (7 sets, daily range): BP systolic 137–168; BP diastolic 65–87
[~2019-07-02] VITALS: Ht 162.6 cm; Wt 80.0 kg
[~2019-07-02 17:24] MED LIST changes: -BUPIVACAINE HCL 0.25% 30 ML VIAL As Ordered ONE; -TRIAMCINOLONE ACETONIDE SUSP 40 MG/ML VIAL (J3301) As Ordered ONE; -diazePAM 2 MG TAB As Ordered ONE
--- NOTE | 2019-07-02 17:46 | REPVR ---
PROCEDURE INFORMATION: Exam: CT Head Without Contrast Exam date and time: 07/02/2019 5:39 PM Age: 69 years old Clinical indication: Other: Neuro deficits TECHNIQUE: Imaging protocol: Computed tomography of the head without contrast. Radiation optimization: All CT scans at this facility use at least one of these dose optimization techniques: automated exposure control; mA and/or kV adjustment per patient size (includes targeted exams where dose is matched to clinical indication); or iterative reconstruction. COMPARISON: CT Head without contrast 09/15/2018 12:39 PM (report not provided) FINDINGS: Brain: Normal. No hemorrhage. Unremarkable white matter. No mass effect. Ventricles: The ventricles and sulci are stable in configuration. Bones/joints: Unremarkable. No acute fracture. Sinuses: Visualized sinuses are unremarkable. No fluid levels. Mastoid air cells: Visualized mastoid air cells are well aerated. Soft tissues: Unremarkable. IMPRESSION: No CT evidence for acute intracranial abnormality or significant change since 09/15/18. ASSESSMENT: ASPECTS ([place] Stroke Program Early CT Score) is 10. COMMENTS: Early cerebral infarct may be CT occult in the first 12 hours. Electronically signed by: Elio Sheriff On 07/02/2019 17:46:06 PM
[2019-07-02] MEDS ORDERED: ISOVUE-370 76% 100ML VIAL (Q9967) As Ordered ONE (17:52)
[2019-07-02 18:06] LABS: BASO # 0.1 10^3/uL (0.0-0.2); BASO % 0.7 % (0.0-1.0); EOS # 0.2 10^3/uL (0.0-0.5); EOS % 2.5 % (0.0-3.0); HEMATOCRIT 41.7 % (36.0-47.0); HEMOGLOBIN 13.3 g/dl (12.0-15.5); LYMPH # 1.4 10^3/uL (1.5-5.0); LYMPH % 16.3 % (24.0-44.0); MEAN CORPUSCULAR HEMOGLOBIN 30.5 pg (27.0-33.0); MEAN CORPUSCULAR HGB CONC 31.9 g/dl (32.0-36.5); MEAN CORPUSCULAR VOLUME 95.6 fl (80.0-96.0); MONO # 0.7 10^3/uL (0.0-0.8); MONO % 8.2 % (0.0-5.0); NEUTROPHILS % 71.9 % (36.0-66.0); PLATELET COUNT, AUTOMATED 223 10^3/uL (150-450); RED BLOOD COUNT 4.36 10^6/uL (4.00-5.40); WHITE BLOOD COUNT 8.3 10^3/uL (4.0-10.0)
[2019-07-02 18:18] LABS: INR 2.21; PARTIAL THROMBOPLASTIN TIME 32.8 SECONDS (25.0-38.4); PROTHROMBIN TIME 24.3 SECONDS (11.8-14.0)
[2019-07-02 18:30] LABS: ALBUMIN 3.4 GM/DL (3.2-5.2); ALT/SGPT 24 U/L (12-78); BILIRUBIN,DIRECT 0.1 MG/DL (0.0-0.2); BILIRUBIN,TOTAL 0.3 MG/DL (0.2-1.0); BLOOD UREA NITROGEN 15 MG/DL (7-18); CALCIUM LEVEL 8.4 MG/DL (8.8-10.2); CARBON DIOXIDE LEVEL 24 MEQ/L (21-32); CHLORIDE LEVEL 111 MEQ/L (98-107); CK-MB VALUE MASS < 1.0 NG/ML (<3.6); CPK CREATINE PHOSPHOKINASE 58 U/L (26-192); CREATININE FOR GFR 0.72 MG/DL (0.55-1.30); GLOMERULAR FILTRATION RATE > 60.0 (>45); GLUCOSE, FASTING 78 MG/DL (70-100); MB/CK RELATIVE INDEX 1.72 (< OR =4); SODIUM LEVEL 142 MEQ/L (136-145); TOTAL PROTEIN 6.1 GM/DL (6.4-8.2); TROPONIN I < 0.02 NG/ML (< 0.10)
[2019-07-02] MEDS ORDERED: MORPHINE 2 MG/ML 1ML VIAL (J2270) IV ONE (18:30)
--- NOTE | 2019-07-02 19:02 | REPVR ---
PROCEDURE INFORMATION: Exam: CT Angiography Head With Contrast Exam date and time: 07/02/2019 5:53 PM Age: 69 years old Clinical indication: Other: CVA TECHNIQUE: Imaging protocol: Computed tomography angiography of the head with intravenous contrast. 3D rendering: MIP and/or 3D reconstructed images were created by the technologist. Radiation optimization: All CT scans at this facility use at least one of these dose optimization techniques: automated exposure control; mA and/or kV adjustment per patient size (includes targeted exams where dose is matched to clinical indication); or iterative reconstruction. Contrast material: ISOVUE 370; Contrast volume: 100 ml; Contrast route: IV; COMPARISON: CT Head without contrast 07/02/2019 5:30 PM FINDINGS: Right internal carotid artery: Minimal atherosclerosis of the right internal carotid artery, without significant stenosis or occlusion. No aneurysm. Right anterior cerebral artery: No occlusion or significant stenosis. No aneurysm. Right middle cerebral artery: An accessory right middle cerebral artery is identified. No significant stenosis or occlusion of the right middle cerebral artery. No aneurysm. Right posterior cerebral artery: No occlusion or significant stenosis. No aneurysm. Right vertebral artery: No occlusion or significant stenosis. No aneurysm. Left internal carotid artery: Mild atherosclerosis of the left internal carotid artery, with less than 50% stenosis. No aneurysm. Left anterior cerebral artery: No occlusion or significant stenosis. No aneurysm. Left middle cerebral artery: Mild stenoses are identified of M2 and M3 segments of the left middle cerebral artery. No aneurysm. Left posterior cerebral artery: Hypoplasia of the P1 segment of the left posterior cerebral artery. No significant stenosis or occlusion of the remaining left METAL CUTTER. No aneurysm. Left vertebral artery: No occlusion or significant stenosis. No aneurysm. Basilar artery: No occlusion or significant stenosis. No aneurysm. IMPRESSION: 1. Mild atherosclerosis of the left internal carotid artery, with less than 50% stenosis. 2. Mild stenoses are identified of M2 and M3 segments of the left middle cerebral artery. 3. Additional findings described above. Electronically signed by: Joe Fleming On 07/02/2019 19:02:07 PM
--- NOTE | 2019-07-02 19:13 | REPVR ---
PROCEDURE INFORMATION: Exam: CT Angiography Neck With Contrast Exam date and time: 07/02/2019 5:53 PM Age: 69 years old Clinical indication: Other: CVA TECHNIQUE: Imaging protocol: Computed tomography angiography of the neck with intravenous contrast. 3D rendering: MIP and/or 3D reconstructed images were created by the technologist. Radiation optimization: All CT scans at this facility use at least one of these dose optimization techniques: automated exposure control; mA and/or kV adjustment per patient size (includes targeted exams where dose is matched to clinical indication); or iterative reconstruction. Contrast material: ISOVUE 370; Contrast volume: 100 ml; Contrast route: IV; COMPARISON: No relevant prior studies available. FINDINGS: VASCULATURE: Right common carotid artery: Artifact obscures the proximal right common carotid artery. No significant stenosis or occlusion of the remaining right common carotid artery. Right internal carotid artery: Extracranial segment is patent with no stenosis. No dissection or occlusion. Right external carotid artery: No occlusion or significant stenosis. Right vertebral artery: No significant stenosis. No dissection or occlusion. Left common carotid artery: No significant stenosis. No dissection or occlusion. Left internal carotid artery: Extracranial segment is patent with no stenosis. No dissection or occlusion. Left external carotid artery: No occlusion or significant stenosis. Left vertebral artery: No significant stenosis. No dissection or occlusion. Subclavian arteries: Venous enhancement and artifact limit evaluation of the right subclavian artery. Atherosclerosis and mild stenosis of the proximal left subclavian artery. Other vasculature: There is increased tortuosity of the bilateral internal carotid arteries. NECK: Bones/joints: Mild anterolisthesis of C3 on C4, C4 on C5, and C5 on C6. Straightening of the lordotic curvature of the cervical spine. Spondylosis is visualized within the cervical and upper thoracic spine. A sternotomy wires identified. Soft tissues: No significant soft tissue swelling. Lungs: Mild patchy nonspecific ground-glass density within the lungs bilaterally. IMPRESSION: 1. Atherosclerosis and mild stenosis of the proximal left subclavian artery. 2. No stenosis or occlusion of the extracranial internal carotid arteries bilaterally. There is increased tortuosity of the bilateral internal carotid arteries. 3. Additional findings described above. COMMENTS: Using NASCET method for measuring degree of carotid artery stenosis: Mild is less than 50% stenosis. Moderate is 50-69% stenosis. Severe is 70-94% stenosis. Near occlusion is 95-99% stenosis. Electronically signed by: Joe Fleming On 07/02/2019 19:13:04 PM
--- NOTE | 2019-07-02 21:43 | ECGEPIP ---
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
--- NOTE | 2019-07-03 13:39 | REP ---
REASON: Stroke-like symptoms. COMPARISON: Multiple, the latest 04/22/2019, also portable. The technique utilized in obtaining the radiograph has magnified the cardiac silhouette and accentuated the interstitial markings. There is no change from prior exam. Note is again made of previous median sternotomy. Cardiac silhouette is magnified by technique, status quo. The implantable device seen on the left is unchanged. No acute patchy parenchymal opacities or pleural effusions have developed. There is no change in the osseous structures. IMPRESSION: No significant change from prior exam. No evidence of acute cardiopulmonary disease. Unreviewed
== END 2019-07-02 20:43 | disposition short-term general hospital (02) ==
LOC: M ED 17:24
DX: I63.9 Cerebral infarction, unspecified (principal); R00.1 Bradycardia, unspecified; J45.909 Unspecified asthma, uncomplicated; E78.5 Hyperlipidemia, unspecified; K21.9 Gastro-esophageal reflux disease without esophagitis; M45.9 Ankylosing spondylitis of unspecified sites in spine; Z87.820 Personal history of traumatic brain injury; L40.50 Arthropathic psoriasis, unspecified; Z98.84 Bariatric surgery status; Z95.818 Presence of other cardiac implants and grafts; I65.23 Occlusion and stenosis of bilateral carotid arteries; I66.9 Occlusion and stenosis of unspecified cerebral artery; Z79.01 Long term (current) use of anticoagulants; Z79.899 Other long term (current) drug therapy; Z91.89 Other specified personal risk factors, not elsewhere classified
CPT/HCPCS: 70450; 70496; 70498; 71045; 80047; 80048; 80076; 82550; 82553; 84484; 85025; 85610; 85730; 86850; 86900; 86901; 93005; 93041; 94760; 96374; 99285; J2270; Q9967

== ENCOUNTER 2019-07-15 09:46 | Emergency (ER) | payer MEDICARE, OTHER ==
[~2019-07-15] VITALS: Ht 165.1 cm; Wt 77.3 kg
[2019-07-15] MEDS ORDERED: WARF-23 PO (10:19)
[2019-07-15] MEDS ORDERED: TOPI25TA10 PO (10:19)
--- NOTE | 2019-07-15 10:22 | REP ---
The brain without contrast: History: Head injury. Patient on Coumadin. Comparison head CT study is from July 02, 2019. CT findings: Preliminary digital desizing machine offbearer radiographs are unremarkable. The bony calvarium is intact. No skull fractures seen. No significant scalp hematoma is appreciated. Visualized paranasal sinuses are clear. On soft tissue window settings, there is no evidence of intracranial hemorrhage. No infarct, mass, extra-axial fluid collection or midline shift is seen. There is some vascular calcification. Impression: No acute intracranial abnormality. Electronically Signed by Dom Deluca MD 07/15/2019 10:14 A
--- NOTE | 2019-07-15 10:25 | REP ---
CT study of the cervical spine without contrast: History: Head injury. Patient on Coumadin. Comparison cervical spine CT study is from July 27, 2018. Technique: Helical scanning is acquired and overlapping 2 mm high resolution axial images were generated and reviewed at bone and soft tissue window settings. Coronal and sagittal multiplanar re-formations images are generated. CT findings: There is no evidence of cervical spine element fracture. No skull base fracture is seen. Cervical vertebral body heights are preserved. Alignment is normal. Facet joints are normally aligned bilaterally at each cervical level on multiplanar re-formations images. There is no evidence of intraspinal or paraspinal hematoma. No extra vertebral abnormality is seen. There is a mild levoconvex curve. There is straightening and slight reversal of the normal cervical lordosis. Degenerative spondylosis changes are again noted with degenerative disc changes most pronounced at C5-6 and C6-7. There is a calcified central disc bulging or protrusion at C6-7 unchanged. Generative facet osteoarthropathy changes are noted in the mid cervical spine at multiple levels. Impression: Moderate to advanced degenerative spondylosis changes again noted unchanged from the comparison study. No traumatic abnormality. Otherwise negative CT study of the cervical spine without contrast. No fracture seen. Electronically Signed by Dom Deluca MD 07/15/2019 10:17 A
[2019-07-15] MEDS ORDERED: KETOROLAC 60 MG/2 ML VIAL (J1885) IM ONE (10:30)
[2019-07-15 11:21] VITALS: BP 158/80
== END 2019-07-15 11:23 | disposition home or self-care (01) ==
LOC: M ED 09:46
DX: S00.03XA Contusion of scalp, initial encounter (principal); G43.909 Migraine, unspecified, not intractable, without status migrainosus; W55.89XA Other contact with other mammals, initial encounter; Y92.099 Unspecified place in other non-institutional residence as the place of occurrence of the external cause; Y93.89 Activity, other specified; Y99.9 Unspecified external cause status; M47.812 Spondylosis without myelopathy or radiculopathy, cervical region; E78.5 Hyperlipidemia, unspecified; Z87.820 Personal history of traumatic brain injury; Z79.01 Long term (current) use of anticoagulants; Z79.899 Other long term (current) drug therapy; Z91.89 Other specified personal risk factors, not elsewhere classified
CPT/HCPCS: 70450; 72125; 96372; 99284; J1885

== ENCOUNTER → 2019-08-04 | Outpatient (CLI) | payer MEDICARE, OTHER ==
[~2019-08-04] MED LIST changes: +TOPI25TA10 PO
--- NOTE | 2019-08-04 13:52 | REP ---
ULTRASOUND LEFT CALF SOFT TISSUE: Real-time sonographic evaluation of the left calf soft tissues performed in the region of bruising and pain. This is located in the medial soft tissues of the left lower leg. At that location, there is a somewhat lobulated hyperechoic area in the soft tissues, relatively superficially, measuring 4.9 x 1.4 x 3.5 cm. I suspect this represents a hematoma. No fluid collection is seen.
== END ==
LOC: M WHC 11:39
PROVIDERS: ATTEND Family Medicine
DX: M79.605 Pain in left leg (principal); T14.8XXA Other injury of unspecified body region, initial encounter
CPT/HCPCS: 76882; 85610; G0463

== ENCOUNTER → 2019-08-15 | Outpatient (CLI) | payer MEDICARE, OTHER ==
--- NOTE | 2019-08-15 23:52 | REP ---
DIAGNOSTIC MAMMOGRAM RIGHT BREAST AND RIGHT BREAST ULTRASOUND: HISTORY: Inferior swelling for 2 weeks. The area is marked on the skin. No family history of breast cancer. Tyrer-Cuzick lifetime risk of breast cancer 5.0%. 3D tomosynthesis images of the right breast are performed, including spot compression views of the inferior aspect of the right breast in multiple projections. Comparison made with prior studies of 11/05/2018 and 12/02/2016. Mild diffuse scattered fibroglandular tissue appears unchanged. A few intramammary lymph nodes are seen, which are stable. There are also a few nonenlarged axillary lymph nodes. There is no new mass or architectural distortion. No clustered microcalcifications are seen. Real-time sonographic evaluation of right breast performed inferiorly in the region of swelling. No cystic or solid nodule is seen. Mammographic Volpara density score of the right breast is B. IMPRESSION: ACR 2, benign. No mass or clustered microcalcifications. A few small intramammary lymph nodes are stable. There is no mammographic or sonographic evidence of a mass at the site of the reported swelling inferiorly and posteriorly in the right breast. A negative mammogram and ultrasound should not deter biopsy if there is a clinically suspicious palpable mass present. Clinical correlation and followup recommended. Recommend followup bilateral mammogram in October of 2019. BIRADS 2: BI-RADS/ACR category 2 mammogram. Benign Findings. This mammogram was interpreted with the aid of an FDA-approved computer-aided detection system. The patient states she/he had a clinical breast exam in 08/07. The patient letter being requested is M2.
== END ==
LOC: M WHC 13:40
PROVIDERS: ATTEND Family Medicine
DX: N63.10 Unspecified lump in the right breast, unspecified quadrant (principal); N64.4 Mastodynia
CPT/HCPCS: 76642; 77065; G0279

== ENCOUNTER 2019-09-28 16:04 | Emergency (ER) | payer MEDICARE, OTHER ==
[~2019-09-28] VITALS: Ht 165.1 cm; Wt 79.5 kg
[2019-09-28] MEDS ORDERED: EMGA120I (16:20)
[2019-09-28] MEDS ORDERED: TIZA2TA (16:20)
[2019-09-28] MEDS ORDERED: ACETAMINOPHEN 325 MG TAB PO ONE (16:30)
--- NOTE | 2019-09-28 17:58 | REP ---
Two views left calcaneus: 09/28/2019. Indication: Foot trauma. Findings: There is no calcaneal fracture. There is no dilatation or dislocation. No lytic or blastic lesions are present. Impression: No fracture of the calcaneus or additional acute pathology. Electronically Signed by Venu Fontaine DO 09/28/2019 05:49 P
[2019-09-28 18:35] VITALS: O2SAT 99
[2019-09-28 18:40] VITALS: BP 172/80
--- NOTE | 2019-09-29 00:13 | REP ---
LEFT ANKLE, FOUR VIEWS: There is no evidence of an acute fracture, dislocation, or intrinsic bone disease. There is mild calcification of the distal Achilles tendon. IMPRESSION: No fracture or dislocation. Electronically Signed by Eric Duran MD 09/29/2019 01:28 P
== END 2019-09-28 18:55 | disposition home or self-care (01) ==
LOC: M ED 16:04
DX: S93.402A Sprain of unspecified ligament of left ankle, initial encounter (principal); S90.32XA Contusion of left foot, initial encounter; W01.0XXA Fall on same level from slipping, tripping and stumbling without subsequent striking against object, initial encounter; Y92.9 Unspecified place or not applicable; Y93.9 Activity, unspecified; Y99.9 Unspecified external cause status; L40.52 Psoriatic arthritis mutilans; M45.9 Ankylosing spondylitis of unspecified sites in spine; G43.919 Migraine, unspecified, intractable, without status migrainosus; F32.9 Major depressive disorder, single episode, unspecified; Z95.4 Presence of other heart-valve replacement; Z79.01 Long term (current) use of anticoagulants; Z79.899 Other long term (current) drug therapy; Z91.89 Other specified personal risk factors, not elsewhere classified

== ENCOUNTER 2019-10-03 23:26 | Emergency (ER) | payer MEDICARE, OTHER ==
[~2019-10-03] VITALS: Ht 165.1 cm; Wt 81.8 kg
[~2019-10-03 23:26] MED LIST changes: +EMGA120I; +TIZA2TA
[2019-10-04] MEDS ORDERED: METOCLOPRAMIDE INJ 10MG/2ML VIAL (J2765 PER 1) IV ONE (00:15)
[2019-10-04] MEDS ORDERED: diphenhydrAMINE 50MG/ML VIAL (J1200) IV ONE (00:15)
--- NOTE | 2019-10-04 00:36 | REPVR ---
PROCEDURE INFORMATION: Exam: CT Head Without Contrast Exam date and time: 10/04/2019 12:05 AM Age: 69 years old Clinical indication: Pain; Headache; Migraine; Aura effect not specified TECHNIQUE: Imaging protocol: Computed tomography of the head without contrast. Radiation optimization: All CT scans at this facility use at least one of these dose optimization techniques: automated exposure control; mA and/or kV adjustment per patient size (includes targeted exams where dose is matched to clinical indication); or iterative reconstruction. COMPARISON: CT Head without contrast 2019-07-15 09:55 FINDINGS: Brain: Normal. No hemorrhage. Unremarkable white matter. No mass effect. Ventricles: Normal. No ventriculomegaly. Bones/joints: Unremarkable. No acute fracture. Sinuses: Visualized sinuses are unremarkable. No fluid levels. Mastoid air cells: Visualized mastoid air cells are well aerated. Soft tissues: Unremarkable. IMPRESSION: No acute intracranial abnormality. Electronically signed by: Alon Thompson On 10/04/2019 00:35:29 AM
[2019-10-04 00:40] LABS: BASO % 0.8 % (0.0-1.0); EOS # 0.2 10^3/uL (0.0-0.5); EOS % 3.1 % (0.0-3.0); HEMATOCRIT 38.6 % (36.0-47.0); HEMOGLOBIN 12.3 g/dl (12.0-15.5); LYMPH # 1.4 10^3/uL (1.5-5.0); LYMPH % 27.9 % (24.0-44.0); MEAN CORPUSCULAR HEMOGLOBIN 29.6 pg (27.0-33.0); MEAN CORPUSCULAR HGB CONC 31.9 g/dl (32.0-36.5); MONO # 0.6 10^3/uL (0.0-0.8); MONO % 10.9 % (0.0-5.0); NEUTROPHILS % 57.3 % (36.0-66.0); PLATELET COUNT, AUTOMATED 220 10^3/uL (150-450); RED BLOOD COUNT 4.15 10^6/uL (4.00-5.40); WHITE BLOOD COUNT 5.2 10^3/uL (4.0-10.0)
[2019-10-04 00:45] LABS: PARTIAL THROMBOPLASTIN TIME 39.6 SECONDS (25.0-38.4)
[2019-10-04 00:48] LABS: ALBUMIN 3.4 GM/DL (3.2-5.2); ALT/SGPT 30 U/L (12-78); BILIRUBIN,DIRECT < 0.1 MG/DL (0.0-0.2); BILIRUBIN,TOTAL 0.3 MG/DL (0.2-1.0); CK-MB VALUE MASS < 1.0 NG/ML (<3.6); CPK CREATINE PHOSPHOKINASE 76 U/L (26-192); LIPASE 114 U/L (73-393); MB/CK RELATIVE INDEX 1.32 (< OR =4); TOTAL PROTEIN 6.2 GM/DL (6.4-8.2); TROPONIN I < 0.02 NG/ML (< 0.10)
[2019-10-04 00:52] LABS: INR 2.36; PROTHROMBIN TIME 25.6 SECONDS (11.8-14.0)
[2019-10-04 01:30] VITALS: BP 141/66
--- NOTE | 2019-10-04 06:34 | ECGEPIP ---
[facility] - ED Test Date: 2019-10-03 Pat Name: LV BOWEN Department: Room: - Gender: Female Rate Examiner: ar : 1950 Requested By: JULIET Mccray Order Number: [id number] Reading MD: Nain Jhaveri Measurements Intervals [place] Rate: 54 P: 38 VA: 167 QRS: 33 QRSD: 91 T: 63 QT: 453 QTc: 433 Interpretive Statements SINUS BRADYCARDIA SIMILAR TO 07/02/19 Electronically Signed on 10-04-2019 6:33:59 EDT by Nain Jhaveri
== END 2019-10-04 01:42 | disposition home or self-care (01) ==
LOC: M ED 23:26
DX: G43.909 Migraine, unspecified, not intractable, without status migrainosus (principal); R00.1 Bradycardia, unspecified; I51.9 Heart disease, unspecified; L40.9 Psoriasis, unspecified; Z87.820 Personal history of traumatic brain injury; Z98.84 Bariatric surgery status; Z95.2 Presence of prosthetic heart valve; Z79.01 Long term (current) use of anticoagulants; Z79.899 Other long term (current) drug therapy; Z91.89 Other specified personal risk factors, not elsewhere classified
CPT/HCPCS: 36415; 70450; 80047; 80076; 82550; 82553; 83690; 84484; 85025; 85610; 85730; 93005; 93041; 96374; 96375; 99285; J1200; J2765

== ENCOUNTER → 2019-11-04 | Outpatient (CLI) | payer MEDICARE, OTHER ==
[~2019-11-04] MED LIST changes: +ACET650T61 PO; -TYLE650T35 PO; -VITA100T12 PO; +VITA1TAB35 PO; -ZOLP6.25 PO; +ZOLP6.2517 PO
== END ==
LOC: M LABSMTC 09:42
PROVIDERS: ATTEND Orthopaedic Surgery
DX: Z01.818 Encounter for other preprocedural examination (principal); Z11.59 Encounter for screening for other viral diseases

== ENCOUNTER 2019-11-17 16:30 | Inpatient (IN) | payer MEDICARE, OTHER ==
[~2019-11-17 16:30] MED LIST changes: +MORPHINE 2 MG/ML 1ML VIAL (J2270) As Ordered ONE; +MORPHINE 2 MG/ML 1ML VIAL (J2270) ONE; +MORPHINE 4 MG/ML 1ML VIAL/SYRINGE (J2270) As Ordered ONE; +ONDANSETRON 4MG/2ML VIAL As Ordered ONE; +ONDANSETRON 4MG/2ML VIAL ONE
[2019-11-17] MEDS ORDERED: PERCOCET 5MG/325MG TAB As Ordered ONE ×2 (16:54→18:06)
[2019-11-17] MEDS ORDERED: MORPHINE 2 MG/ML 1ML VIAL (J2270) As Ordered ONE ×2 (19:21→22:32)
[2019-11-18] MEDS ORDERED: MORPHINE 2 MG/ML 1ML VIAL (J2270) As Ordered ONE ×3 (01:03→22:29)
[2019-11-18] MEDS ORDERED: MORPHINE 2 MG/ML 1ML VIAL (J2270) ONE ×3 (01:03→22:29)
[2019-11-18] MEDS ORDERED: tiZANidine 4 MG TAB As Ordered ONE (03:27)
[2019-11-18] MEDS ORDERED: ENOXAPARIN 80MG/0.8ML SYRINGE (J1650 PER 10MG) As Ordered ONE ×2 (03:27→17:19)
[2019-11-18] MEDS ORDERED: DOCUSATE SODIUM 100 MG CAP As Ordered ONE ×3 (03:27→21:21)
[2019-11-18] MEDS ORDERED: traZODone 50 MG TAB As Ordered ONE ×3 (03:28→23:55)
[2019-11-18] MEDS ORDERED: PERCOCET 5MG/325MG TAB As Ordered ONE ×2 (03:29→21:20)
[2019-11-18] MEDS ORDERED: ONDANSETRON 4MG/2ML VIAL ONE (03:29)
[2019-11-18] MEDS ORDERED: ENOXAPARIN 80MG/0.8ML SYRINGE (J1650 PER 10MG) ONE ×2 (03:29→17:19)
[2019-11-18] MEDS ORDERED: traZODone 50 MG TAB ONE ×2 (03:29→21:20)
[2019-11-18] MEDS ORDERED: tiZANidine 4 MG TAB ONE (03:29)
[2019-11-18] MEDS ORDERED: DOCUSATE SODIUM 100 MG CAP ONE ×3 (03:29→21:20)
[2019-11-18] MEDS ORDERED: ONDANSETRON 4MG/2ML VIAL As Ordered ONE (03:29)
[2019-11-18] MEDS ORDERED: PERCOCET 5MG/325MG TAB ONE ×2 (03:29→21:20)
[2019-11-18] MEDS ORDERED: SERTRALINE HCL 25 MG TABLET As Ordered ONE (08:23)
[2019-11-18] MEDS ORDERED: SERTRALINE HCL 25 MG TABLET ONE (08:23)
[2019-11-18] MEDS ORDERED: MORPHINE 4 MG/ML 1ML VIAL/SYRINGE (J2270) As Ordered ONE (10:42)
[2019-11-18] MEDS ORDERED: MORPHINE 4 MG/ML 1ML VIAL/SYRINGE (J2270) ONE (10:42)
[2019-11-18] MEDS ORDERED: METOCLOPRAMIDE INJ 10MG/2ML VIAL (J2765 PER 1) ONE (10:42)
[2019-11-18] MEDS ORDERED: METOCLOPRAMIDE INJ 10MG/2ML VIAL (J2765 PER 1) As Ordered ONE (10:43)
[2019-11-18] MEDS ORDERED: WARFARIN SOD 5MG TAB ONE (17:19)
[2019-11-18] MEDS ORDERED: WARFARIN SOD 5MG TAB As Ordered ONE (17:19)
[2019-11-18] MEDS ORDERED: GI COCKTAIL 50ML BTL(HYOSCYAMINE/MAALOX/LIDOCAINE VISCOUS)(1:3:1) ONE (21:00)
[2019-11-19] MEDS ORDERED: MORPHINE 2 MG/ML 1ML VIAL (J2270) As Ordered ONE ×2 (04:48→22:32)
[2019-11-19] MEDS ORDERED: MORPHINE 2 MG/ML 1ML VIAL (J2270) ONE ×2 (04:48→22:32)
[2019-11-19] MEDS ORDERED: DOCUSATE SODIUM 100 MG CAP As Ordered ONE ×2 (09:34→21:03)
[2019-11-19] MEDS ORDERED: ONDANSETRON 4MG/2ML VIAL ONE (09:34)
[2019-11-19] MEDS ORDERED: SERTRALINE HCL 25 MG TABLET As Ordered ONE (09:34)
[2019-11-19] MEDS ORDERED: DOCUSATE SODIUM 100 MG CAP ONE ×2 (09:34→21:03)
[2019-11-19] MEDS ORDERED: SERTRALINE HCL 25 MG TABLET ONE (09:34)
[2019-11-19] MEDS ORDERED: ONDANSETRON 4MG/2ML VIAL As Ordered ONE (09:35)
[2019-11-19] MEDS ORDERED: PERCOCET 5MG/325MG TAB ONE ×3 (09:46→18:40)
[2019-11-19] MEDS ORDERED: PERCOCET 5MG/325MG TAB As Ordered ONE ×3 (09:46→18:40)
[2019-11-19] MEDS ORDERED: WARFARIN SOD 5MG TAB ONE (17:07)
[2019-11-19] MEDS ORDERED: WARFARIN SOD 5MG TAB As Ordered ONE (17:07)
[2019-11-19] MEDS ORDERED: ENOXAPARIN 80MG/0.8ML SYRINGE (J1650 PER 10MG) As Ordered ONE (17:07)
[2019-11-19] MEDS ORDERED: ENOXAPARIN 80MG/0.8ML SYRINGE (J1650 PER 10MG) ONE (17:07)
[2019-11-19] MEDS ORDERED: traZODone 50 MG TAB ONE (21:03)
[2019-11-19] MEDS ORDERED: traZODone 50 MG TAB As Ordered ONE (21:03)
[2019-11-20] MEDS ORDERED: PERCOCET 5MG/325MG TAB As Ordered ONE ×5 (01:37→23:54)
[2019-11-20] MEDS ORDERED: PERCOCET 5MG/325MG TAB ONE ×5 (01:37→23:54)
[2019-11-20] MEDS ORDERED: ENOXAPARIN 80MG/0.8ML SYRINGE (J1650 PER 10MG) As Ordered ONE (05:06)
[2019-11-20] MEDS ORDERED: ENOXAPARIN 80MG/0.8ML SYRINGE (J1650 PER 10MG) ONE (05:06)
[2019-11-20] MEDS ORDERED: DOCUSATE SODIUM 100 MG CAP ONE ×2 (08:17→20:29)
[2019-11-20] MEDS ORDERED: SERTRALINE HCL 25 MG TABLET ONE (08:17)
[2019-11-20] MEDS ORDERED: DOCUSATE SODIUM 100 MG CAP As Ordered ONE ×2 (08:17→20:29)
[2019-11-20] MEDS ORDERED: SERTRALINE HCL 25 MG TABLET As Ordered ONE (08:19)
[2019-11-20] MEDS ORDERED: PHENAZOPYRIDINE 100 MG TAB ONE (15:00)
[2019-11-20] MEDS ORDERED: WARFARIN SOD 5MG TAB ONE (17:37)
[2019-11-20] MEDS ORDERED: WARFARIN SOD 5MG TAB As Ordered ONE (17:41)
[2019-11-20] MEDS ORDERED: traZODone 50 MG TAB As Ordered ONE (20:29)
[2019-11-20] MEDS ORDERED: traZODone 50 MG TAB ONE (20:29)
[2019-11-20] MEDS ORDERED: ONDANSETRON 4MG/2ML VIAL As Ordered ONE (21:24)
[2019-11-20] MEDS ORDERED: ONDANSETRON 4MG/2ML VIAL ONE (21:24)
[2019-11-21] MEDS ORDERED: PERCOCET 5MG/325MG TAB As Ordered ONE ×3 (07:27→20:51)
[2019-11-21] MEDS ORDERED: PERCOCET 5MG/325MG TAB ONE ×3 (07:27→20:49)
[2019-11-21] MEDS ORDERED: SERTRALINE HCL 25 MG TABLET ONE (08:21)
[2019-11-21] MEDS ORDERED: SERTRALINE HCL 25 MG TABLET As Ordered ONE (08:21)
[2019-11-21] MEDS ORDERED: DOCUSATE SODIUM 100 MG CAP ONE ×2 (08:21→20:49)
[2019-11-21] MEDS ORDERED: DOCUSATE SODIUM 100 MG CAP As Ordered ONE ×2 (08:21→20:49)
[2019-11-21] MEDS ORDERED: PHENAZOPYRIDINE 100 MG TAB ONE (12:39)
[2019-11-21] MEDS ORDERED: WARFARIN SOD 5MG TAB As Ordered ONE (19:08)
[2019-11-21] MEDS ORDERED: WARFARIN SOD 5MG TAB ONE (19:08)
[2019-11-21] MEDS ORDERED: CIPROFLOXACIN 250MG TAB As Ordered ONE (20:49)
[2019-11-21] MEDS ORDERED: CIPROFLOXACIN 250MG TAB ONE (20:49)
[2019-11-21] MEDS ORDERED: traZODone 50 MG TAB ONE (20:49)
[2019-11-21] MEDS ORDERED: traZODone 50 MG TAB As Ordered ONE (20:49)
[2019-11-22] MEDS ORDERED: PERCOCET 5MG/325MG TAB ONE ×3 (02:33→13:46)
[2019-11-22] MEDS ORDERED: PERCOCET 5MG/325MG TAB As Ordered ONE ×3 (02:33→13:46)
[2019-11-22] MEDS ORDERED: SERTRALINE HCL 25 MG TABLET As Ordered ONE (08:42)
[2019-11-22] MEDS ORDERED: DOCUSATE SODIUM 100 MG CAP As Ordered ONE (08:42)
[2019-11-22] MEDS ORDERED: DOCUSATE SODIUM 100 MG CAP ONE (08:42)
[2019-11-22] MEDS ORDERED: SERTRALINE HCL 50 MG TAB As Ordered ONE (08:42)
[2019-11-22] MEDS ORDERED: SERTRALINE HCL 50 MG TAB ONE (08:42)
[2019-11-22] MEDS ORDERED: SERTRALINE HCL 25 MG TABLET ONE (08:42)
[2019-11-22] MEDS ORDERED: PHENAZOPYRIDINE 100 MG TAB ONE (13:00)
[2019-11-22] MEDS ORDERED: CIPROFLOXACIN 250MG TAB ONE (13:00)
--- NOTE | 2019-12-21 11:58 | REP ---
LEFT KNEE: 2-VIEWS HISTORY: Trauma. This report was delayed due to a protracted episode of computer network disruption experienced by this facility. FINDINGS: AP and lateral views of the left knee demonstrate evidence of a comminuted lateral tibial plateau fracture with slight depression visible on the frontal view. This is not visible on the lateral radiograph, but there is some fullness in the suprapatellar bursa region suggesting joint effusion. There is nonarticular spurring at the superior pole of the patella at the quadriceps tendon insertion site. There is also some articular osteoarthritic spurring at the superior and inferior pole of the patella. Mild diffuse osteopenia. IMPRESSION: Probable lateral tibial plateau fracture with some depression and suspected hemarthrosis. MTDD
[2019-12-25 11:51] LABS: INR 2.15; PROTHROMBIN TIME 24.5 SECONDS (11.8-14.0)
[2019-12-25 14:19] LABS: BASO % 0.4 % (0.0-1.0); EOS # 0.1 10^3/uL (0.0-0.5); EOS % 1.1 % (0.0-3.0); HEMATOCRIT 38.2 % (36.0-47.0); HEMOGLOBIN 12.2 g/dl (12.0-15.5); LYMPH # 0.8 10^3/uL (1.5-5.0); LYMPH % 17.3 % (24.0-44.0); MEAN CORPUSCULAR HGB CONC 31.9 g/dl (32.0-36.5); MEAN CORPUSCULAR VOLUME 93.9 fl (80.0-96.0); MONO # 0.4 10^3/uL (0.0-0.8); NEUTROPHILS # 3.2 10^3/uL (1.5-8.5); PLATELET COUNT, AUTOMATED 205 10^3/uL (150-450); RED BLOOD COUNT 4.07 10^6/uL (4.00-5.40); WHITE BLOOD COUNT 4.5 10^3/uL (4.0-10.0)
--- NOTE | 2020-01-06 08:04 | ECGEPIP ---
SINUS BRADYCARDIA BORDERLINE ECG NO PREVIOUS SEE SCANNED DOWNTIME REPORT MTDD
--- NOTE | 2020-01-10 15:00 | ECGEPIP ---
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
[2020-01-11 09:20] LABS: INR 2.47; PROTHROMBIN TIME 27.3 SECONDS (12.5-14.3)
[2020-01-11 10:18] LABS: HEMATOCRIT 33.4 % (36.0-47.0); HEMOGLOBIN 10.8 g/dl (12.0-15.5); MEAN CORPUSCULAR HEMOGLOBIN 30.2 pg (27.0-33.0); MEAN CORPUSCULAR HGB CONC 32.3 g/dl (32.0-36.5); MEAN CORPUSCULAR VOLUME 93.3 fl (80.0-96.0); PLATELET COUNT, AUTOMATED 176 10^3/uL (150-450); RED BLOOD COUNT 3.58 10^6/uL (4.00-5.40); WHITE BLOOD COUNT 4.4 10^3/uL (4.0-10.0)
[2020-01-11 10:36] LABS: INR 3.05; PROTHROMBIN TIME 32.2 SECONDS (12.5-14.3)
[2020-01-11 11:04] LABS: APPEARANCE, URINE CLEAR (CLEAR); BACTERIA, URINE AUTO 1+ (NEGATIVE); BILIRUBIN, URINE AUTO NEGATIVE (NEGATIVE); BLOOD, URINE BLOOD NEGATIVE (NEGATIVE); COLOR, URINE YELLOW (YELLOW); GLUCOSE, URINE (UA) AUTO NEGATIVE (NEGATIVE); KETONE, URINE AUTO NEGATIVE (NEGATIVE); LEUKOCYTE ESTERASE, URINE AUTO 2+ (NEGATIVE); MUCUS, URINE SMALL (NEGATIVE); NITRITE, URINE AUTO NEGATIVE (NEGATIVE); PROTEIN, URINE AUTO NEGATIVE (NEGATIVE); RBC, URINE AUTO 2 /HPF (0-3); SPECIFIC GRAVITY URINE AUTO 1.018 (1.002-1.035); SQUAMOUS EPITHELIAL CELL UR AU 2 /HPF (0-6); WBC, URINE AUTO 26 /HPF (0-3)
[2020-01-19 01:28] LABS: HEMOGLOBIN A1c 5.8 %
--- NOTE | 2020-01-23 08:22 | ECHO ---
DATE OF PROCEDURE: 11/19/2019 REFERRING PHYSICIAN: Tereza Bright MD INDICATION: Syncope. Height: 65 inches Weight: 196 pounds 2D MEASUREMENTS: Aortic root 2.6 cm Proximal ascending aorta 3.4 cm Left atrium 4.0 cm Septum 1.13 cm Posterior wall 1.05 cm Left ventricle diastole 4.7 cm Left ventricle systole 3.1 cm Aortic annulus 2.1 cm Inferior vena cava 1.9 cm (more than 50% respiratory variation) DOPPLER MEASUREMENTS: Very mild aortic regurgitation. Mild aortic stenosis. Peak aortic valve gradient 49 mmHg. Mean aortic valve gradient 27 mmHg. Peak aortic valve velocity 349 cm/s. Aortic valve VTI 72.1 cm. LVOT velocity 123 cm/s. LVOT VTI 31.5 cm. Very mild mitral regurgitation. Mitral E velocity 127 cm/s. Mitral A velocity 100 cm/s. Mitral deceleration time 209 ms. Mild tricuspid regurgitation. Estimated right ventricle systolic pressure of 43-40 mmHg. Pulmonary acceleration time 127 ms. No pulmonic regurgitation. Mitral annular tissue Doppler: E prime lateral 10.9 cm/s. E prime central 8 cm/s. DESCRIPTION: Rhythm was sinus with occasional premature ventricular contractions (PVCs). Image quality was good. No pericardial effusion. This was a 2D, M-mode, color flow Doppler, and pulsed wave Doppler examination mitral annular tissue Doppler. CONCLUSIONS: 1. 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 Presence of some pannus involving the aortic valve prosthesis. Mild aortic stenosis and very mild aortic regurgitation. 2. Normal left ventricle internal dimensions and wall thickness. Normal regional left ventricular (LV) wall motion and wall thickening. Normal LV systolic function. Left ventricular ejection fraction (LVEF) 65% by visual assessment. Normal LV diastolic function. 3. Severe left atrial dilatation. 4. Suggestive of moderate elevation of estimated right ventricle systolic pressure. Mild tricuspid regurgitation. Normal right ventricle size and systolic function. 5. Mild mitral annular calcification. Very mild mitral regurgitation. 6. No pericardial effusion. MTDD
[2020-01-29 14:18] LABS: INR 2.44
[2020-02-08 10:49] LABS: ALBUMIN 3.4 GM/DL (3.2-5.2); ALT/SGPT 67 U/L (12-78); BILIRUBIN,TOTAL 0.3 MG/DL (0.2-1.0); BLOOD UREA NITROGEN 14 MG/DL (7-18); CALCIUM LEVEL 8.6 MG/DL (8.8-10.2); CARBON DIOXIDE LEVEL 27 MEQ/L (21-32); CHLORIDE LEVEL 108 MEQ/L (98-107); CK-MB VALUE MASS < 1.0 NG/ML (<3.6); CPK CREATINE PHOSPHOKINASE 65 U/L (26-192); CREATININE FOR GFR 0.75 MG/DL (0.55-1.30); GLOMERULAR FILTRATION RATE > 60.0 (>45); GLUCOSE, FASTING 87 MG/DL (70-100); MB/CK RELATIVE INDEX 1.54 (< OR =4); POTASSIUM SERUM 4.5 MEQ/L (3.5-5.1); SODIUM LEVEL 141 MEQ/L (136-145); TOTAL PROTEIN 6.2 GM/DL (6.4-8.2); TROPONIN I < 0.02 NG/ML (< 0.10)
[2020-02-11 10:14] LABS: BLOOD UREA NITROGEN 11 MG/DL (7-18); CALCIUM LEVEL 8.7 MG/DL (8.8-10.2); CARBON DIOXIDE LEVEL 28 MEQ/L (21-32); CHLORIDE LEVEL 103 MEQ/L (98-107); CHOLESTEROL LEVEL 279 MG/DL (<200); CHOLESTEROL RISK RATIO 2.708 (<5); CK-MB VALUE MASS < 1.0 NG/ML (<3.6); CPK CREATINE PHOSPHOKINASE 60 U/L (26-192); CREATININE FOR GFR 0.55 MG/DL (0.55-1.30); GLOMERULAR FILTRATION RATE > 60.0 (>45); GLUCOSE, FASTING 127 MG/DL (70-100); HDL CHOLESTEROL 103 MG/DL (>40); LDL CHOLESTEROL 160 MG/DL (<100); MAGNESIUM LEVEL 2.3 MG/DL (1.8-2.4); MB/CK RELATIVE INDEX 1.67 (< OR =4); NON-HDL-C 176 MG/DL; POTASSIUM SERUM 4.1 MEQ/L (3.5-5.1); SODIUM LEVEL 137 MEQ/L (136-145); TRIGLYCERIDES LEVEL 79 MG/DL (<150); TROPONIN I < 0.02 NG/ML (< 0.10)
[2020-02-11 10:17] LABS: ALBUMIN 3.2 GM/DL (3.2-5.2); ALT/SGPT 49 U/L (12-78); BILIRUBIN,TOTAL 0.3 MG/DL (0.2-1.0); BLOOD UREA NITROGEN 16 MG/DL (7-18); CALCIUM LEVEL 8.6 MG/DL (8.8-10.2); CARBON DIOXIDE LEVEL 25 MEQ/L (21-32); CHLORIDE LEVEL 104 MEQ/L (98-107); CK-MB VALUE MASS < 1.0 NG/ML (<3.6); CPK CREATINE PHOSPHOKINASE 52 U/L (26-192); CREATININE FOR GFR 0.68 MG/DL (0.55-1.30); GLOMERULAR FILTRATION RATE > 60.0 (>45); GLUCOSE, FASTING 105 MG/DL (70-100); MB/CK RELATIVE INDEX 1.92 (< OR =4); POTASSIUM SERUM 3.9 MEQ/L (3.5-5.1); SODIUM LEVEL 137 MEQ/L (136-145); TOTAL PROTEIN 6.2 GM/DL (6.4-8.2); TROPONIN I < 0.02 NG/ML (< 0.10)
[2020-02-14 10:19] LABS: BLOOD UREA NITROGEN 16 MG/DL (7-18); CALCIUM LEVEL 8.2 MG/DL (8.8-10.2); CARBON DIOXIDE LEVEL 32 MEQ/L (21-32); CHLORIDE LEVEL 101 MEQ/L (98-107); CREATININE FOR GFR 0.66 MG/DL (0.55-1.30); GLOMERULAR FILTRATION RATE > 60.0 (>45); GLUCOSE, FASTING 84 MG/DL (70-100); POTASSIUM SERUM 4.3 MEQ/L (3.5-5.1); SODIUM LEVEL 135 MEQ/L (136-145)
[2020-02-15 12:38] LABS: BASO % 0.1 % (0.0-1.0); HEMATOCRIT 37.7 % (36.0-47.0); LYMPH # 0.4 10^3/uL (1.5-5.0); LYMPH % 4.2 % (24.0-44.0); MEAN CORPUSCULAR HEMOGLOBIN 30.1 pg (27.0-33.0); MEAN CORPUSCULAR HGB CONC 31.8 g/dl (32.0-36.5); MEAN CORPUSCULAR VOLUME 94.5 fl (80.0-96.0); MONO # 0.2 10^3/uL (0.0-0.8); MONO % 2.5 % (0.0-5.0); NEUTROPHILS # 7.7 10^3/uL (1.5-8.5); NEUTROPHILS % 92.7 % (36.0-66.0); PLATELET COUNT, AUTOMATED 204 10^3/uL (150-450); RED BLOOD COUNT 3.99 10^6/uL (4.00-5.40); WHITE BLOOD COUNT 8.3 10^3/uL (4.0-10.0)
[2020-02-15 12:39] LABS: INR 2.36; PARTIAL THROMBOPLASTIN TIME 53.4 SECONDS (24.2-38.5); PROTHROMBIN TIME 26.4 SECONDS (12.5-14.3)
[2020-02-15 12:57] LABS: BASO % 0.2 % (0.0-1.0); EOS # 0.1 10^3/uL (0.0-0.5); EOS % 0.7 % (0.0-3.0); HEMATOCRIT 34.7 % (36.0-47.0); HEMOGLOBIN 11.1 g/dl (12.0-15.5); LYMPH # 1.2 10^3/uL (1.5-5.0); LYMPH % 14.3 % (24.0-44.0); MEAN CORPUSCULAR VOLUME 93.8 fl (80.0-96.0); MONO # 0.7 10^3/uL (0.0-0.8); MONO % 8.1 % (0.0-5.0); NEUTROPHILS # 6.1 10^3/uL (1.5-8.5); NEUTROPHILS % 76.5 % (36.0-66.0); PLATELET COUNT, AUTOMATED 207 10^3/uL (150-450)
[2020-02-15 13:03] LABS: APPEARANCE, URINE CLEAR (CLEAR); BACTERIA, URINE AUTO NEGATIVE (NEGATIVE); BILIRUBIN, URINE AUTO NEGATIVE (NEGATIVE); BLOOD, URINE BLOOD NEGATIVE (NEGATIVE); COLOR, URINE YELLOW (YELLOW); GLUCOSE, URINE (UA) AUTO 1+ mg/dL (NEGATIVE); KETONE, URINE AUTO 1+ mg/dL (NEGATIVE); LEUKOCYTE ESTERASE, URINE AUTO NEGATIVE (NEGATIVE); MUCUS, URINE SMALL (NEGATIVE); NITRITE, URINE AUTO NEGATIVE (NEGATIVE); PROTEIN, URINE AUTO NEGATIVE (NEGATIVE); RBC, URINE AUTO 5 /HPF (0-3); SPECIFIC GRAVITY URINE AUTO 1.021 (1.002-1.035); SQUAMOUS EPITHELIAL CELL UR AU 2 /HPF (0-6); WBC, URINE AUTO 3 /HPF (0-3)
== END 2019-11-22 13:25 | disposition home or self-care (01) | DRG 563 ==
LOC: M ED 16:30 → M MSPAV 17:30
PROVIDERS: ADMIT Internal Medicine; ATTEND Internal Medicine
DX: S82.202A Unspecified fracture of shaft of left tibia, initial encounter for closed fracture (principal); R29.6 Repeated falls; F32.9 Major depressive disorder, single episode, unspecified; W10.9XXA Fall (on) (from) unspecified stairs and steps, initial encounter; Y92.009 Unspecified place in unspecified non-institutional (private) residence as the place of occurrence of the external cause; M06.9 Rheumatoid arthritis, unspecified; Z79.01 Long term (current) use of anticoagulants; Z79.899 Other long term (current) drug therapy; Z95.2 Presence of prosthetic heart valve; G47.00 Insomnia, unspecified

== ENCOUNTER 2019-11-22 15:00 | Inpatient (IN) | payer MEDICARE, OTHER ==
[~2019-11-22 15:00] MED LIST changes: -ACET650T61 PO; -MORPHINE 2 MG/ML 1ML VIAL (J2270) As Ordered ONE; -MORPHINE 2 MG/ML 1ML VIAL (J2270) ONE; -MORPHINE 4 MG/ML 1ML VIAL/SYRINGE (J2270) As Ordered ONE; -ONDANSETRON 4MG/2ML VIAL As Ordered ONE; -ONDANSETRON 4MG/2ML VIAL ONE; +TYLE650T35 PO; +VITA100T12 PO; -VITA1TAB35 PO; +ZOLP6.25 PO; -ZOLP6.2517 PO
[2019-11-22] MEDS ORDERED: ACETAMINOPHEN 500 MG TAB As Ordered ONE ×2 (18:06→21:33)
[2019-11-22] MEDS ORDERED: DOCUSATE SODIUM 100 MG CAP As Ordered ONE ×2 (18:06→21:32)
[2019-11-22] MEDS ORDERED: MIRALAX *UNIT DOSE* 17GM PACKET As Ordered ONE (18:06)
[2019-11-22] MEDS ORDERED: WARFARIN SOD 5MG TAB As Ordered ONE (18:07)
[2019-11-22] MEDS ORDERED: traMADol 50 MG TAB As Ordered ONE (18:47)
[2019-11-22] MEDS ORDERED: traZODone 50 MG TAB As Ordered ONE (21:33)
[2019-11-22] MEDS ORDERED: SENNA 8.6 MG TAB (SENOKOT) As Ordered ONE (21:33)
[2019-11-23] MEDS ORDERED: traMADol 50 MG TAB As Ordered ONE (00:19)
[2019-11-23] MEDS ORDERED: MIRALAX *UNIT DOSE* 17GM PACKET As Ordered ONE (08:21)
[2019-11-23] MEDS ORDERED: MULTIVITAMINS/MINERALS THERAP 1 TAB As Ordered ONE (08:22)
[2019-11-23] MEDS ORDERED: DOCUSATE SODIUM 100 MG CAP As Ordered ONE ×3 (08:22→20:46)
[2019-11-23] MEDS ORDERED: SERTRALINE HCL 50 MG TAB As Ordered ONE (08:22)
[2019-11-23] MEDS ORDERED: ACETAMINOPHEN 500 MG TAB As Ordered ONE ×3 (08:22→20:47)
[2019-11-23] MEDS ORDERED: LIDOCAINE 5% (LIDODERM) PATCH As Ordered ONE (11:36)
[2019-11-23] MEDS ORDERED: BISACODYL 10 MG SUPP As Ordered ONE (11:37)
[2019-11-23] MEDS ORDERED: GABAPENTIN 100 MG CAP As Ordered ONE ×3 (11:37→20:46)
[2019-11-23] MEDS ORDERED: oxyCODONE 5MG TAB As Ordered ONE ×2 (11:37→16:31)
[2019-11-23] MEDS ORDERED: PANTOPRAZOLE 40MG TAB (PROTONIX) As Ordered ONE ×2 (13:09→20:47)
[2019-11-23] MEDS ORDERED: WARFARIN SOD 5MG TAB As Ordered ONE (16:32)
[2019-11-23] MEDS ORDERED: traZODone 25MG PER 1/2 TABLET As Ordered ONE (20:48)
[2019-11-23] MEDS ORDERED: SENNA 8.6 MG TAB (SENOKOT) As Ordered ONE (20:48)
[2019-11-24] MEDS ORDERED: oxyCODONE 5MG TAB As Ordered ONE ×4 (02:08→20:45)
[2019-11-24] MEDS ORDERED: BISACODYL 10 MG SUPP As Ordered ONE (06:28)
[2019-11-24] MEDS ORDERED: MIRALAX *UNIT DOSE* 17GM PACKET As Ordered ONE (07:48)
[2019-11-24] MEDS ORDERED: GABAPENTIN 100 MG CAP As Ordered ONE ×2 (16:40→20:18)
[2019-11-24] MEDS ORDERED: DOCUSATE SODIUM 100 MG CAP As Ordered ONE ×2 (16:40→20:18)
[2019-11-24] MEDS ORDERED: WARFARIN SOD 5MG TAB As Ordered ONE (16:40)
[2019-11-24] MEDS ORDERED: traZODone 25MG PER 1/2 TABLET As Ordered ONE (20:19)
[2019-11-24] MEDS ORDERED: ACETAMINOPHEN 500 MG TAB As Ordered ONE (20:19)
[2019-11-24] MEDS ORDERED: PANTOPRAZOLE 40MG TAB (PROTONIX) As Ordered ONE (20:19)
[2019-11-24] MEDS ORDERED: SENNA 8.6 MG TAB (SENOKOT) As Ordered ONE (20:19)
[2019-11-24] MEDS ORDERED: traZODone 50 MG TAB As Ordered ONE (20:19)
[2019-11-25] MEDS ORDERED: oxyCODONE 5MG TAB As Ordered ONE ×3 (05:59→16:07)
[2019-11-25] MEDS ORDERED: GABAPENTIN 100 MG CAP As Ordered ONE ×2 (08:54→16:00)
[2019-11-25] MEDS ORDERED: LIDOCAINE 5% (LIDODERM) PATCH As Ordered ONE (08:54)
[2019-11-25] MEDS ORDERED: DOCUSATE SODIUM 100 MG CAP As Ordered ONE ×2 (08:55→15:56)
[2019-11-25] MEDS ORDERED: MULTIVITAMINS/MINERALS THERAP 1 TAB As Ordered ONE (08:55)
[2019-11-25] MEDS ORDERED: ACETAMINOPHEN 500 MG TAB As Ordered ONE (08:55)
[2019-11-25] MEDS ORDERED: SERTRALINE HCL 50 MG TAB As Ordered ONE (08:55)
[2019-11-25] MEDS ORDERED: PANTOPRAZOLE 40MG TAB (PROTONIX) As Ordered ONE (08:56)
[2019-11-25] MEDS ORDERED: MIRALAX *UNIT DOSE* 17GM PACKET As Ordered ONE (08:58)
[2019-11-25] MEDS ORDERED: WARFARIN SOD 5MG TAB As Ordered ONE (15:56)
[2019-11-26] MEDS ORDERED: oxyCODONE 5MG TAB As Ordered ONE ×2 (11:21→19:19)
[2019-11-26] MEDS ORDERED: DOCUSATE SODIUM 100 MG CAP As Ordered ONE ×2 (16:35→20:27)
[2019-11-26] MEDS ORDERED: GABAPENTIN 100 MG CAP As Ordered ONE ×2 (16:35→20:27)
[2019-11-26] MEDS ORDERED: ACETAMINOPHEN 500 MG TAB As Ordered ONE ×2 (16:51→20:25)
[2019-11-26] MEDS ORDERED: WARFARIN SOD 5MG TAB As Ordered ONE (17:33)
[2019-11-26] MEDS ORDERED: MAGNESIUM CITRATE 300 ML BTL As Ordered ONE (18:24)
[2019-11-26] MEDS ORDERED: ISOVUE-370 76% 100ML VIAL As Ordered ONE (20:22)
[2019-11-26] MEDS ORDERED: PANTOPRAZOLE 40MG TAB (PROTONIX) As Ordered ONE (20:27)
[2019-11-26] MEDS ORDERED: traZODone 50 MG TAB As Ordered ONE (20:27)
[2019-11-26] MEDS ORDERED: traZODone 25MG PER 1/2 TABLET As Ordered ONE (20:27)
[2019-11-26] MEDS ORDERED: SENNA 8.6 MG TAB (SENOKOT) As Ordered ONE (20:28)
[2019-11-26] MEDS ORDERED: LIDOCAINE 5% (LIDODERM) PATCH As Ordered ONE (20:32)
[2019-11-27] MEDS ORDERED: tiZANidine 4 MG TAB As Ordered ONE (13:48)
[2019-11-27] MEDS ORDERED: LIDOCAINE 5% (LIDODERM) PATCH As Ordered ONE (13:48)
[2019-11-27] MEDS ORDERED: LACTULOSE 20 GM/30 ML SYRUP UD As Ordered ONE (13:49)
[2019-11-27] MEDS ORDERED: ACETAMINOPHEN 500 MG TAB As Ordered ONE ×2 (15:43→20:11)
[2019-11-27] MEDS ORDERED: DOCUSATE SODIUM 100 MG CAP As Ordered ONE ×2 (15:43→20:15)
[2019-11-27] MEDS ORDERED: WARFARIN SOD 5MG TAB As Ordered ONE (15:43)
[2019-11-27] MEDS ORDERED: GABAPENTIN 100 MG CAP As Ordered ONE ×2 (15:56→20:09)
[2019-11-27] MEDS ORDERED: oxyCODONE 5MG TAB As Ordered ONE (20:09)
[2019-11-27] MEDS ORDERED: traZODone 25MG PER 1/2 TABLET As Ordered ONE (20:10)
[2019-11-27] MEDS ORDERED: PANTOPRAZOLE 40MG TAB (PROTONIX) As Ordered ONE (20:10)
[2019-11-27] MEDS ORDERED: SENNA 8.6 MG TAB (SENOKOT) As Ordered ONE (20:15)
[2019-11-28] MEDS ORDERED: oxyCODONE 5MG TAB As Ordered ONE ×4 (04:08→20:42)
[2019-11-28] MEDS ORDERED: ACETAMINOPHEN 500 MG TAB As Ordered ONE ×3 (07:56→20:42)
[2019-11-28] MEDS ORDERED: SERTRALINE HCL 50 MG TAB As Ordered ONE (07:56)
[2019-11-28] MEDS ORDERED: PANTOPRAZOLE 40MG TAB (PROTONIX) As Ordered ONE ×2 (07:58→20:42)
[2019-11-28] MEDS ORDERED: LIDOCAINE 5% (LIDODERM) PATCH As Ordered ONE (07:58)
[2019-11-28] MEDS ORDERED: GABAPENTIN 100 MG CAP As Ordered ONE ×3 (07:58→20:41)
[2019-11-28] MEDS ORDERED: DOCUSATE SODIUM 100 MG CAP As Ordered ONE ×3 (07:58→20:42)
[2019-11-28] MEDS ORDERED: MULTIVITAMINS/MINERALS THERAP 1 TAB As Ordered ONE (07:58)
[2019-11-28] MEDS ORDERED: MIRALAX *UNIT DOSE* 17GM PACKET As Ordered ONE (07:59)
[2019-11-28] MEDS ORDERED: WARFARIN SOD 7.5MG TAB As Ordered ONE (17:06)
[2019-11-28] MEDS ORDERED: traZODone 50 MG TAB As Ordered ONE (20:43)
[2019-11-28] MEDS ORDERED: traZODone 25MG PER 1/2 TABLET As Ordered ONE (20:43)
[2019-11-28] MEDS ORDERED: SENNA 8.6 MG TAB (SENOKOT) As Ordered ONE (20:43)
[2019-11-29] MEDS ORDERED: oxyCODONE 5MG TAB As Ordered ONE (02:35)
[2019-11-30] MEDS ORDERED: oxyCODONE 5MG TAB As Ordered ONE (12:00)
== END 2019-11-30 10:30 | disposition home health service (06) | DRG 561 ==
LOC: M PM&R 15:00
PROVIDERS: ADMIT Physical Medicine & Rehabilitation; ATTEND Physical Medicine & Rehabilitation
DX: S82.142D Displaced bicondylar fracture of left tibia, subsequent encounter for closed fracture with routine healing (principal); I69.919 Unspecified symptoms and signs involving cognitive functions following unspecified cerebrovascular disease; G43.909 Migraine, unspecified, not intractable, without status migrainosus; K59.00 Constipation, unspecified; R32 Unspecified urinary incontinence; F32.9 Major depressive disorder, single episode, unspecified; I25.10 Atherosclerotic heart disease of native coronary artery without angina pectoris; M54.12 Radiculopathy, cervical region; M62.830 Muscle spasm of back; Z95.2 Presence of prosthetic heart valve; W19.XXXD Unspecified fall, subsequent encounter; Y92.9 Unspecified place or not applicable; Z79.01 Long term (current) use of anticoagulants; Z79.891 Long term (current) use of opiate analgesic; Z88.8 Allergy status to other drugs, medicaments and biological substances; Z91.048 Other nonmedicinal substance allergy status

== ENCOUNTER → 2019-12-28 | Outpatient (REF) | payer MEDICARE, OTHER ==
[~2019-12-28] MED LIST changes: +ACET650T61 PO; -TYLE650T35 PO; -VITA100T12 PO; +VITA1TAB35 PO; -ZOLP6.25 PO; +ZOLP6.2517 PO
[2019-12-28 13:29] LABS: INR 2.07; PROTHROMBIN TIME 23.8 SECONDS (11.8-14.0)
== END ==
LOC: M SHH 12:30
PROVIDERS: ATTEND Family Medicine
DX: Z51.81 Encounter for therapeutic drug level monitoring (principal); Z95.2 Presence of prosthetic heart valve; Z79.01 Long term (current) use of anticoagulants

== ENCOUNTER → 2020-01-04 | Outpatient (REF) | payer MEDICARE, OTHER ==
[2020-01-04 13:13] LABS: INR 1.57; PROTHROMBIN TIME 19.1 SECONDS (11.8-14.0)
== END ==
LOC: M SHH 12:35
PROVIDERS: ATTEND Family Medicine
DX: Z51.81 Encounter for therapeutic drug level monitoring (principal); Z79.01 Long term (current) use of anticoagulants; Z95.4 Presence of other heart-valve replacement

== ENCOUNTER → 2020-01-11 | Outpatient (REF) | payer MEDICARE, OTHER ==
[2020-01-11 14:32] LABS: INR 1.95; PROTHROMBIN TIME 22.6 SECONDS (12.5-14.3)
== END ==
LOC: M SHH 13:39
PROVIDERS: ATTEND Family Medicine
DX: Z51.81 Encounter for therapeutic drug level monitoring (principal)

== ENCOUNTER → 2020-01-25 | Outpatient (REF) | payer MEDICARE, OTHER ==
[2020-01-25 17:15] LABS: C REACTIVE PROTEIN QUANTITATIV < 0.30 MG/DL (0.00-0.30); RHEUMATOID FACTOR QUANT < 10.0 IU/ML (<15.0)
== END ==
LOC: M SFHCPLAZ 11:56
PROVIDERS: ATTEND Family Medicine
DX: M25.50 Pain in unspecified joint (principal)
CPT/HCPCS: 36415; 85652; 86140; 86200; 86431; G0463

== ENCOUNTER → 2020-04-03 | Outpatient (REF) | payer MEDICARE, OTHER ==
[2020-04-03 13:35] LABS: HEMATOCRIT 40.3 % (36.0-47.0); HEMOGLOBIN 13.2 g/dl (12.0-15.5); MEAN CORPUSCULAR HEMOGLOBIN 29.3 pg (27.0-33.0); MEAN CORPUSCULAR HGB CONC 32.8 g/dl (32.0-36.5); MEAN CORPUSCULAR VOLUME 89.6 fl (80.0-96.0); PLATELET COUNT, AUTOMATED 250 10^3/uL (150-450); WHITE BLOOD COUNT 5.1 10^3/uL (4.0-10.0)
[2020-04-03 13:46] LABS: PROTHROMBIN TIME 23.1 SECONDS (12.5-14.3)
== END ==
LOC: M PLALAB 09:39
PROVIDERS: ATTEND Family Medicine
DX: D64.9 Anemia, unspecified (principal); Z79.01 Long term (current) use of anticoagulants; Z95.2 Presence of prosthetic heart valve; F43.10 Post-traumatic stress disorder, unspecified; F41.1 Generalized anxiety disorder; F33.1 Major depressive disorder, recurrent, moderate

== ENCOUNTER → 2020-06-14 | Outpatient (REF) | payer MEDICARE, OTHER ==
[2020-06-14 14:09] LABS: BLOOD UREA NITROGEN 15 MG/DL (7-18); CALCIUM LEVEL 9.4 MG/DL (8.8-10.2); CARBON DIOXIDE LEVEL 29 MEQ/L (21-32); CHLORIDE LEVEL 102 MEQ/L (98-107); CREATININE FOR GFR 0.88 MG/DL (0.55-1.30); GLOMERULAR FILTRATION RATE > 60.0 (>45); GLUCOSE, FASTING 88 MG/DL (70-100); POTASSIUM SERUM 4.4 MEQ/L (3.5-5.1); SODIUM LEVEL 135 MEQ/L (136-145)
== END ==
LOC: M SFHCPLAZ 10:59
PROVIDERS: ATTEND Family Medicine
DX: Z01.818 Encounter for other preprocedural examination (principal); M18.11 Unilateral primary osteoarthritis of first carpometacarpal joint, right hand
CPT/HCPCS: 36415; 80048; G0463

== ENCOUNTER 2020-08-01 20:41 | Emergency (ER) | payer MEDICARE, OTHER ==
[~2020-08-01] VITALS: Ht 165.1 cm; Wt 90.9 kg
[2020-08-01] MEDS ORDERED: GI COCKTAIL 50ML BTL(HYOSCYAMINE/MAALOX/LIDOCAINE VISCOUS)(1:3:1) PO ONE (21:15)
--- NOTE | 2020-08-01 21:33 | REPVR ---
PROCEDURE INFORMATION: Exam: XR Chest Exam date and time: 08/01/2020 9:07 PM Age: 70 years old Clinical indication: Chest pain TECHNIQUE: Imaging protocol: XR of the chest. Views: 1 view. COMPARISON: CR Chest, 2 view PA, Lat 11/18/2019 10:41 PM FINDINGS: Tubes, catheters and devices: Loop recorder demonstrated. Lungs: Unremarkable. No consolidation. Pleural spaces: Unremarkable. No pleural effusion. No pneumothorax. Heart/Mediastinum: Unremarkable. No cardiomegaly. Bones/joints: Status post sternotomy. The spine demonstrates moderate degenerative changes. Osteoporosis. IMPRESSION: No acute findings. Electronically signed by: Yan Bennett On 08/01/2020 21:34:25 PM
[2020-08-01 21:38] LABS: BASO % 0.7 % (0.0-1.0); EOS # 0.2 10^3/uL (0.0-0.5); HEMATOCRIT 36.8 % (36.0-47.0); HEMOGLOBIN 11.8 g/dl (12.0-15.5); LYMPH # 1.5 10^3/uL (1.5-5.0); LYMPH % 24.1 % (24.0-44.0); MEAN CORPUSCULAR HEMOGLOBIN 29.4 pg (27.0-33.0); MEAN CORPUSCULAR HGB CONC 32.1 g/dl (32.0-36.5); MEAN CORPUSCULAR VOLUME 91.5 fl (80.0-96.0); MONO # 0.5 10^3/uL (0.0-0.8); MONO % 8.6 % (2.0-8.0); NEUTROPHILS # 3.8 10^3/uL (1.5-8.5); NEUTROPHILS % 63.3 % (36.0-66.0); PLATELET COUNT, AUTOMATED 260 10^3/uL (150-450); RED BLOOD COUNT 4.02 10^6/uL (4.00-5.40)
[2020-08-01 21:43] LABS: INR 2.87; PROTHROMBIN TIME 30.8 SECONDS (12.5-14.3)
[2020-08-01 21:44] LABS: PARTIAL THROMBOPLASTIN TIME 41.1 SECONDS (24.2-38.5)
[2020-08-01 21:49] LABS: ALBUMIN 3.9 GM/DL (3.2-5.2); ALT/SGPT 20 U/L (12-78); BILIRUBIN,DIRECT < 0.1 MG/DL (0.0-0.2); BILIRUBIN,TOTAL 0.3 MG/DL (0.2-1.0); BLOOD UREA NITROGEN 15 MG/DL (7-18); CALCIUM LEVEL 9.3 MG/DL (8.8-10.2); CARBON DIOXIDE LEVEL 27 MEQ/L (21-32); CHLORIDE LEVEL 103 MEQ/L (98-107); CK-MB VALUE MASS 1.2 NG/ML (<3.6); CPK CREATINE PHOSPHOKINASE 102 U/L (26-192); CREATININE FOR GFR 0.74 MG/DL (0.55-1.30); FREE T4 0.87 NG/DL (0.76-1.46); GLOMERULAR FILTRATION RATE > 60.0 (>45); GLUCOSE, FASTING 71 MG/DL (70-100); LIPASE 126 U/L (73-393); MB/CK RELATIVE INDEX 1.18 (< OR =4); SODIUM LEVEL 136 MEQ/L (136-145); TOTAL PROTEIN 6.6 GM/DL (6.4-8.2); TROPONIN I < 0.02 NG/ML (< 0.10)
[2020-08-01] MEDS ORDERED: MORPHINE 2 MG/ML 1ML VIAL (J2270) IV PRN (22:00)
[2020-08-01] MEDS: MORPHINE 2 MG/ML 1ML VIAL (J2270) IV PRN ×2 (22:54→23:21)
[2020-08-01] MEDS ORDERED: ISOVUE-370 76% 100ML VIAL As Ordered ONE (22:57)
--- NOTE | 2020-08-01 23:28 | REPVR ---
PROCEDURE INFORMATION: Exam: CTA Chest With Contrast Exam date and time: 08/01/2020 9:57 PM Age: 70 years old Clinical indication: Chest pain; Type not specified; Additional info: Anterior chest pain radiating to between scapulas TECHNIQUE: Imaging protocol: Computed tomographic angiography of the chest with contrast. 3D rendering (Not supervised by radiologist): MIP and/or 3D reconstructed images were created by the technologist. Radiation optimization: All CT scans at this facility use at least one of these dose optimization techniques: automated exposure control; mA and/or kV adjustment per patient size (includes targeted exams where dose is matched to clinical indication); or iterative reconstruction. Contrast material: ISO; Contrast volume: 75 ml; Contrast route: INTRAVENOUS (IV); COMPARISON: CT ANGIO CHEST 04/22/2019 8:23 PM FINDINGS: Pulmonary arteries: No focal pulmonary artery filling defect to suggest acute pulmonary embolus. Aorta: No thoracic aortic aneurysm or dissection. Lungs: No suspicious lung mass or air space process. No central endobronchial lesion. Pleural spaces: No pleural effusion or pneumothorax. Heart: Aortic valve prosthesis is present. Multi-chamber cardiac dilatation is noted. No evidence of acute pulmonary edema. Lymph nodes: No enlarged mediastinal lymph nodes. Gallbladder and bile ducts: Gallbladder is distended, incompletely imaged. Stomach and bowel: Incompletely imaged gastric bypass changes are present. Bones/joints: Bony structures are unremarkable except for benign DISH changes. Soft tissues: No asymmetric abnormality of the extrathoracic soft tissues. IMPRESSION: 1. No evidence of acute pulmonary embolus. 2. No other acute or concerning focal intrathoracic abnormality. 3. Mild cardiac enlargement and evidence of a prior aortic valve prosthesis with no evidence of acute cardiac decompensation. 4. Distention of the gallbladder, incompletely evaluated Electronically signed by: Pablo Blancas On 08/01/2020 23:29:14 PM
[2020-08-02] MEDS ORDERED: PERCOCET 5MG/325MG TAB PO ONE (00:30)
[2020-08-02] MEDS ORDERED: OXYCODONE/APAP 5MG/325MG(BULK FOR ED) 1 TABLET PO ONE (00:35)
[2020-08-02 00:37] LABS: CK-MB VALUE MASS < 1.0 NG/ML (<3.6); CPK CREATINE PHOSPHOKINASE 87 U/L (26-192); MB/CK RELATIVE INDEX 1.15 (< OR =4); TROPONIN I < 0.02 NG/ML (< 0.10)
[2020-08-02 01:18] VITALS: BP 170/70
--- NOTE | 2020-08-02 10:15 | ECGEPIP ---
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
[2020-08-02 14:24] LABS: NT-PRO BNP 324 PG/ML (<125)
== END 2020-08-02 01:28 | disposition home or self-care (01) ==
LOC: M ED 20:41
DX: R07.9 Chest pain, unspecified (principal); K82.8 Other specified diseases of gallbladder; R06.02 Shortness of breath; E78.5 Hyperlipidemia, unspecified; Z87.820 Personal history of traumatic brain injury; G43.909 Migraine, unspecified, not intractable, without status migrainosus; Z95.818 Presence of other cardiac implants and grafts; L40.9 Psoriasis, unspecified; Z95.1 Presence of aortocoronary bypass graft; Z82.49 Family history of ischemic heart disease and other diseases of the circulatory system; Z79.02 Long term (current) use of antithrombotics/antiplatelets; Z79.899 Other long term (current) drug therapy; Z91.89 Other specified personal risk factors, not elsewhere classified; Z88.8 Allergy status to other drugs, medicaments and biological substances
CPT/HCPCS: 71045; 71275; 80048; 80076; 82550; 82553; 83690; 83880; 84439; 84443; 84484; 85025; 85610; 85730; 93005; 93041; 94760; 96374; 99285; J2270; Q9967

== ENCOUNTER 2020-08-05 05:13 | Emergency (ER) | payer MEDICARE, OTHER ==
[~2020-08-05] VITALS: Ht 165.1 cm; Wt 90.9 kg
[2020-08-05] MEDS ORDERED: NITR0.4S14 SL (05:40)
[2020-08-05] MEDS ORDERED: TRAZ-257 PO (05:40)
[2020-08-05 05:45] LABS: BASO % 0.5 % (0.0-1.0); EOS # 0.1 10^3/uL (0.0-0.5); EOS % 2.7 % (0.0-3.0); HEMATOCRIT 35.9 % (36.0-47.0); HEMOGLOBIN 11.4 g/dl (12.0-15.5); LYMPH # 1.2 10^3/uL (1.5-5.0); LYMPH % 28.8 % (24.0-44.0); MEAN CORPUSCULAR HEMOGLOBIN 29.5 pg (27.0-33.0); MEAN CORPUSCULAR HGB CONC 31.8 g/dl (32.0-36.5); MEAN CORPUSCULAR VOLUME 92.8 fl (80.0-96.0); MONO # 0.4 10^3/uL (0.0-0.8); MONO % 9.1 % (2.0-8.0); NEUTROPHILS # 2.4 10^3/uL (1.5-8.5); NEUTROPHILS % 58.4 % (36.0-66.0); PLATELET COUNT, AUTOMATED 245 10^3/uL (150-450); RED BLOOD COUNT 3.87 10^6/uL (4.00-5.40); WHITE BLOOD COUNT 4.1 10^3/uL (4.0-10.0)
[2020-08-05 05:55] LABS: INR 2.52; PROTHROMBIN TIME 27.7 SECONDS (12.5-14.3)
[2020-08-05 06:13] LABS: BLOOD UREA NITROGEN 12 MG/DL (7-18); CALCIUM LEVEL 8.9 MG/DL (8.8-10.2); CARBON DIOXIDE LEVEL 29 MEQ/L (21-32); CHLORIDE LEVEL 105 MEQ/L (98-107); CK-MB VALUE MASS < 1.0 NG/ML (<3.6); CPK CREATINE PHOSPHOKINASE 81 U/L (26-192); CREATININE FOR GFR 0.76 MG/DL (0.55-1.30); GLOMERULAR FILTRATION RATE > 60.0 (>45); GLUCOSE, FASTING 98 MG/DL (70-100); MB/CK RELATIVE INDEX 1.23 (< OR =4); POTASSIUM SERUM 4.1 MEQ/L (3.5-5.1); SODIUM LEVEL 138 MEQ/L (136-145); TROPONIN I < 0.02 NG/ML (< 0.10)
--- NOTE | 2020-08-05 06:37 | REPVR ---
PROCEDURE INFORMATION: Exam: XR Chest Exam date and time: 08/05/2020 5:52 AM Age: 70 years old Clinical indication: Other: Chest pain TECHNIQUE: Imaging protocol: XR of the chest. Views: 1 view. COMPARISON: 1. CR PORTABLE CHEST X-RAY 08/01/2020 8:[address] ANGIO CHEST 08/01/2020 11:00:36 PM FINDINGS: Lungs: Lungs are well aerated. No consolidation. Minimal bibasilar atelectasis/scar. Pleural spaces: No significant pleural effusions. No pneumothorax. Heart/Mediastinum: Cardiac size is at the upper limits of normal and appears stable. Stable mediastinal contours. Postoperative change from sternotomy and cardiac surgery. Cardiac loop recorder. Bones/joints: Bones are stable. Osteopenia. Degenerative changes. IMPRESSION: Stable chest. No acute abnormalities are identified. Electronically signed by: Ric Schaffer On 08/05/2020 06:37:43 AM
[2020-08-05] MEDS ORDERED: ACETAMINOPHEN 500 MG TAB PO ONE (06:40)
[2020-08-05] MEDS ORDERED: NITROGLYCERIN 2% OINT 1 GM *U/D* PKT TOP ONE (07:55)
[2020-08-05] MEDS ORDERED: oxyCODONE 5MG TAB PO ONE (08:10)
[2020-08-05] MEDS ORDERED: GI COCKTAIL 50ML BTL(HYOSCYAMINE/MAALOX/LIDOCAINE VISCOUS)(1:3:1) PO ONE (08:10)
[2020-08-05 08:22] VITALS: BP 170/72
[2020-08-05] MEDS ORDERED: ISOVUE-370 76% 100ML VIAL As Ordered ONE (08:49)
--- NOTE | 2020-08-05 09:24 | REP ---
INDICATION: midsternal CP radiating to back and neck. COMPARISON: Comparison CT pulmonary angiogram 4 days prior on 01 August 2020.. TECHNIQUE: Contrast dose: 75 ML of Isovue [address] technique: Helical scanning is acquired and overlapping 1.5 mm and contiguous 3 mm axial images are reformatted. In addition, maximum intensity projection and multiplanar re-formation images are generated in sagittal and coronal imaging projections. FINDINGS: There is good opacification in the pulmonary arterial tree. There is no evidence of vessel cut off or filling defect to suggest pulmonary embolus. Homogeneous opacity is seen in the thoracic aorta. There is no evidence of aneurysm or dissection. Lung window settings demonstrate no evidence of infiltrate, significant atelectasis, or pulmonary mass lesion. There is a subpleural 3 mm nodule in the right lower lobe displayed on page 07/17/1994 and series 402 of today's study. This is unchanged from a prior study June 21, 2018 and is therefore felt to be benign. No significant pulmonary nodule is appreciated. No pleural or pericardial effusion is seen. No hilar or mediastinal mass or adenopathy is observed. There is mild four-chamber cardiac enlargement and patient is status post median sternotomy and aortic valve replacement as before. No acute bony abnormality is seen. In the upper abdomen, normal adrenal glands are observed. Patient is status post gastric bypass. The exam is otherwise unremarkable. IMPRESSION: No CT evidence of pulmonary embolus. Mild four-chamber cardiac enlargement again noted. No acute abnormality. <Electronically signed by Levi Deluca > 08/05/20 [id number]
[2020-08-05 10:12] LABS: CK-MB VALUE MASS < 1.0 NG/ML (<3.6); CPK CREATINE PHOSPHOKINASE 68 U/L (26-192); MB/CK RELATIVE INDEX 1.47 (< OR =4); TROPONIN I < 0.02 NG/ML (< 0.10)
[2020-08-05] MEDS ORDERED: OMEP40CA97 PO (10:55)
[2020-08-05] MEDS ORDERED: OXYC-517 PO (11:00)
[2020-08-05 11:17] LABS: NT-PRO BNP 395 PG/ML (<125)
[2020-08-05 12:05] VITALS: BP 156/82
--- NOTE | 2020-08-06 05:37 | ECGEPIP ---
[facility] - ED Test Date: 2020-08-05 Pat Name: LV BOWEN Department: Room: - Gender: Female Pharmacy Student: He LIMON : 1950 Requested By: JULIET Mccray Order Number: [id number] Reading MD: Nain Jhaveri Measurements Intervals [place] Rate: 59 P: 36 MO: 176 QRS: 15 QRSD: 82 T: 64 QT: 456 QTc: 451 Interpretive Statements Sinus bradycardia with premature supraventricular complexes POOR R WAVE PROGRESSION SIMILAR TO 08/01/20 Electronically Signed on 08-06-2020 5:36:49 EDT by Nain Jhaveri
--- NOTE | 2020-08-06 09:10 | ECGEPIP ---
[facility] - ED Test Date: 2020-08-05 Pat Name: LV BOWEN Department: Room: - Gender: Female Crown Blocker: CATRINA : 1950 Requested By: RACIEL Treviño PA-C Order Number: [id number] Reading MD: Alon Ya Measurements Intervals [place] Rate: 70 P: 77 RI: 192 QRS: 25 QRSD: 86 T: 61 QT: 422 QTc: 455 Interpretive Statements Sinus rhythm with premature atrial complexes Similar to tracing done 08-05-2020 Electronically Signed on 08-06-2020 9:10:21 EDT by Alon Ya
== END 2020-08-05 12:08 | disposition home or self-care (01) ==
LOC: M ED 05:13
DX: R07.9 Chest pain, unspecified (principal); R00.1 Bradycardia, unspecified; I51.7 Cardiomegaly; R06.02 Shortness of breath; I48.91 Unspecified atrial fibrillation; E78.5 Hyperlipidemia, unspecified; K21.9 Gastro-esophageal reflux disease without esophagitis; J45.909 Unspecified asthma, uncomplicated; G43.909 Migraine, unspecified, not intractable, without status migrainosus; F41.9 Anxiety disorder, unspecified; F32.9 Major depressive disorder, single episode, unspecified; Z87.820 Personal history of traumatic brain injury; Z98.84 Bariatric surgery status; Z95.4 Presence of other heart-valve replacement; Z95.818 Presence of other cardiac implants and grafts; Z79.01 Long term (current) use of anticoagulants; Z79.899 Other long term (current) drug therapy; Z91.89 Other specified personal risk factors, not elsewhere classified; Z88.8 Allergy status to other drugs, medicaments and biological substances
CPT/HCPCS: 71045; 71275; 80048; 82550; 82553; 83880; 84484; 85025; 85610; 85730; 87798; 93005; 93041; 94760; 99285; Q9967

== ENCOUNTER → 2020-10-23 | Outpatient (CLI) | payer MEDICARE, OTHER ==
[~2020-10-23] MED LIST changes: +AMLO1TAB24 PO; +D31000TA2 PO; +FURO20TA2 PO; +GABA-282 PO; +LISI-898 PO; +MULT-40 PO; +NITR0.4S14 SL; +OCUVTAB4 PO; +OMEP40CA4 PO; +OXYC-517 PO; +SERT50TA29 PO; +SUMA25TA3 PO; +TIZA1TAB12 PO; -TIZA2TA; +TIZA2TA PO; +TRAZ-257 PO; +WARF-21 PO; +WARF-22 PO
[2020-10-23 17:26] LABS: BLOOD UREA NITROGEN 14 MG/DL (7-18); CALCIUM LEVEL 8.9 MG/DL (8.8-10.2); CARBON DIOXIDE LEVEL 26 MEQ/L (21-32); CHLORIDE LEVEL 104 MEQ/L (98-107); CK-MB VALUE MASS < 1.0 NG/ML (<3.6); CPK CREATINE PHOSPHOKINASE 73 U/L (26-192); CREATININE FOR GFR 0.78 MG/DL (0.55-1.30); GLOMERULAR FILTRATION RATE > 60.0 (>45); GLUCOSE, FASTING 92 MG/DL (70-100); MB/CK RELATIVE INDEX 1.37 (< OR =4); POTASSIUM SERUM 4.5 MEQ/L (3.5-5.1); SODIUM LEVEL 136 MEQ/L (136-145); THYROID STIMULATING HORMONE 0.766 uIU/ML (0.358-3.740); TROPONIN I < 0.02 NG/ML (< 0.10)
== END ==
LOC: M LAB 16:19
PROVIDERS: ATTEND Physician Assistant
DX: R03.0 Elevated blood-pressure reading, without diagnosis of hypertension (principal); Z79.899 Other long term (current) drug therapy; Z51.81 Encounter for therapeutic drug level monitoring; Z79.01 Long term (current) use of anticoagulants
CPT/HCPCS: 36415; 80048; 82550; 82553; 84443; 84484; 85610; 93005; G0463

== ENCOUNTER 2020-10-25 15:30 | Observation (INO) | payer MEDICARE, OTHER ==
[~2020-10-25] VITALS: Ht 165.1 cm; Wt 93.6 kg
[~2020-10-25 15:30] MED LIST changes: -AMLO1TAB24 PO; -D31000TA2 PO; -FURO20TA2 PO; -GABA-282 PO; -LISI-898 PO; -MULT-40 PO; -OCUVTAB4 PO; -SERT50TA29 PO; -SUMA25TA3 PO; -TIZA1TAB12 PO; -WARF-21 PO; -WARF-22 PO
[2020-10-25] MEDS ORDERED: SERT50TA29 PO (15:43)
[2020-10-25] MEDS ORDERED: OCUVTAB4 PO (15:43)
[2020-10-25] MEDS ORDERED: GABA-282 PO ×2 (15:43→20:29)
[2020-10-25] MEDS ORDERED: SUMA25TA3 PO (15:43)
[2020-10-25] MEDS ORDERED: FURO20TA2 PO (15:43)
[2020-10-25 16:24] LABS: BASO % 0.9 % (0.0-1.0); EOS # 0.1 10^3/uL (0.0-0.5); EOS % 2.3 % (0.0-3.0); HEMATOCRIT 37.1 % (36.0-47.0); HEMOGLOBIN 11.9 g/dl (12.0-15.5); LYMPH # 1.1 10^3/uL (1.5-5.0); LYMPH % 24.7 % (24.0-44.0); MEAN CORPUSCULAR HEMOGLOBIN 28.7 pg (27.0-33.0); MEAN CORPUSCULAR HGB CONC 32.1 g/dl (32.0-36.5); MEAN CORPUSCULAR VOLUME 89.6 fl (80.0-96.0); MONO # 0.4 10^3/uL (0.0-0.8); MONO % 7.9 % (2.0-8.0); NEUTROPHILS # 2.8 10^3/uL (1.5-8.5); PLATELET COUNT, AUTOMATED 208 10^3/uL (150-450); RED BLOOD COUNT 4.14 10^6/uL (4.00-5.40); WHITE BLOOD COUNT 4.4 10^3/uL (4.0-10.0)
[2020-10-25] MEDS ORDERED: LABETALOL 100MG/20ML VIAL IV STA ×2 (16:29→17:45)
--- NOTE | 2020-10-25 16:29 | REP ---
INDICATION: CHEST PAIN. COMPARISON: 08/05/2020. TECHNIQUE: Single portable AP view of the chest was performed. FINDINGS: There is no acute infiltrate or pulmonary edema. Lungs are clear. The heart is mildly enlarged. The mediastinal silhouette is unchanged. The visualized osseous structures are intact.Multiple sternal wires are present. IMPRESSION: No acute pulmonary disease. <Electronically signed by Eric Duran > 10/25/20 [id number]
[2020-10-25 16:55] LABS: ALBUMIN 3.9 GM/DL (3.2-5.2); ALT/SGPT 19 U/L (12-78); BILIRUBIN,DIRECT 0.1 MG/DL (0.0-0.2); BILIRUBIN,TOTAL 0.4 MG/DL (0.2-1.0); BLOOD UREA NITROGEN 12 MG/DL (7-18); CARBON DIOXIDE LEVEL 24 MEQ/L (21-32); CHLORIDE LEVEL 105 MEQ/L (98-107); CK-MB VALUE MASS < 1.0 NG/ML (<3.6); CPK CREATINE PHOSPHOKINASE 74 U/L (26-192); CREATININE FOR GFR 0.76 MG/DL (0.55-1.30); GLOMERULAR FILTRATION RATE > 60.0 (>45); GLUCOSE, FASTING 93 MG/DL (70-100); LIPASE 86 U/L (73-393); MB/CK RELATIVE INDEX 1.35 (< OR =4); POTASSIUM SERUM 4.1 MEQ/L (3.5-5.1); SODIUM LEVEL 140 MEQ/L (136-145); TOTAL PROTEIN 6.6 GM/DL (6.4-8.2); TROPONIN I < 0.02 NG/ML (< 0.10)
[2020-10-25] MEDS ORDERED: WARFARIN SOD 5MG TAB PO SCH (17:00)
[2020-10-25 17:13] LABS: PROTHROMBIN TIME 23.1 SECONDS (12.5-14.3)
[2020-10-25] MEDS ORDERED: ISOVUE-370 76% 100ML VIAL As Ordered ONE (17:40)
[2020-10-25] MEDS ORDERED: METOCLOPRAMIDE INJ 10MG/2ML VIAL (J2765 PER 1) IV ONE (18:30)
--- NOTE | 2020-10-25 18:57 | REPVR ---
PROCEDURE INFORMATION: Exam: CT Head Without Contrast Exam date and time: 10/25/2020 6:29 PM Age: 70 years old Clinical indication: Pain; Headache; Additional info: HTN headache TECHNIQUE: Imaging protocol: Computed tomography of the head without contrast. Radiation optimization: All CT scans at this facility use at least one of these dose optimization techniques: automated exposure control; mA and/or kV adjustment per patient size (includes targeted exams where dose is matched to clinical indication); or iterative reconstruction. COMPARISON: CT Head without contrast 11/17/2019 1:11 PM FINDINGS: Brain: There is mild diffuse cerebellar atrophy. Cerebral ventricles: No ventriculomegaly. Paranasal sinuses: Visualized sinuses are unremarkable. No fluid levels. Mastoid air cells: Visualized mastoid air cells are well aerated. Bones/joints: There is hyperostosis frontalis interna. Soft tissues: Unremarkable. IMPRESSION: 1. There is mild diffuse cerebellar atrophy. 2. No acute intracranial findings. Electronically signed by: Yan Bennett On 10/25/2020 18:57:02 PM
--- NOTE | 2020-10-25 19:06 | REPVR ---
PROCEDURE INFORMATION: Exam: CTA Chest With Contrast Exam date and time: 10/25/2020 6:29 PM Age: 70 years old Clinical indication: Shortness of breath; Additional info: SOB TECHNIQUE: Imaging protocol: Computed tomographic angiography of the chest with contrast. 3D rendering (Not supervised by radiologist): MIP and/or 3D reconstructed images were created by the technologist. Radiation optimization: All CT scans at this facility use at least one of these dose optimization techniques: automated exposure control; mA and/or kV adjustment per patient size (includes targeted exams where dose is matched to clinical indication); or iterative reconstruction. Contrast material: ISOVUE 370; Contrast volume: 75 ml; Contrast route: INTRAVENOUS (IV); COMPARISON: CT ANGIO CHEST 08/05/2020 8:57 AM FINDINGS: Pulmonary arteries: There are no pulmonary emboli. Aorta: There is no aortic dissection or aneurysm. Lungs: Bibasilar atelectasis. Few scattered subpleural noncalcified pulmonary parenchymal nodules measuring up to 3.7 cm in the right lower lobe. These findings are stable. Lungs are otherwise clear. Calcified granuloma right upper lobe. Calcifications in the tracheobronchial tree. Pleural spaces: Unremarkable. No pneumothorax. No pleural effusion. Heart: Status post aortic valve replacement. Lymph nodes: Multiple small mediastinal lymph nodes likely postinflammatory. Stomach and bowel: This patient is status post gastric bypass surgery. Bones/joints: The spine demonstrates moderate degenerative changes. Status post sternotomy. Soft tissues: Unremarkable. IMPRESSION: 1. Few scattered subpleural noncalcified pulmonary parenchymal nodules measuring up to 3.7 cm in the right lower lobe. These findings are stable. Assuming patient is at low risk follow-up study of 12 months according to Fleischner guidelines suggested. 2. There is no aortic dissection or aneurysm. 3. There are no pulmonary emboli. 4. No acute pulmonary parenchymal abnormalities. 5. Findings consistent with remote intrathoracic granulomatous infection. 6. This patient is status post gastric bypass surgery. Electronically signed by: Yan Bennett On 10/25/2020 19:06:08 PM
[2020-10-25] MEDS ORDERED: MAALOX 30 ML SUSP *UDC PO PRN (19:35)
[2020-10-25] MEDS ORDERED: MOM 30ML SUSPENSION UDC PO PRN (19:35)
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
[2020-10-25 20:13] LABS: RSV AMPLIFICATION NEGATIVE (NEGATIVE)
[2020-10-25] MEDS ORDERED: WARF-22 PO ×2 (20:29)
[2020-10-25] MEDS ORDERED: MULT-40 PO (20:29)
[2020-10-25] MEDS ORDERED: TIZA1TAB12 PO (20:29)
[2020-10-25] MEDS ORDERED: D31000TA2 PO (20:29)
[2020-10-25] MEDS ORDERED: GABAPENTIN 300 MG CAP PO PRN (20:50)
[2020-10-25] MEDS ORDERED: SUMAtriptan SUCCINATE 25 MG TAB PO PRN (20:50)
[2020-10-25] MEDS ORDERED: tiZANidine 4 MG TAB PO PRN (20:50)
[2020-10-25] MEDS ORDERED: NITROGLYCERIN 0.4 MG SUBL TABLET SL PRN (20:50)
[2020-10-25] MEDS ORDERED: tiZANidine 4 MG TAB PO SCH (21:00)
[2020-10-25] MEDS ORDERED: amLODIPine 5 MG TAB PO SCH (21:00)
[2020-10-25] MEDS ORDERED: GABAPENTIN 300 MG CAP PO SCH (21:00)
[2020-10-25] MEDS ORDERED: traZODone 100 MG TAB PO SCH (21:00)
[2020-10-25] MEDS ORDERED: PILL CUTTER 1 EACH XX PRN (21:10)
[2020-10-25 22:04] VITALS: BP 170/66
[2020-10-25] MEDS: ACETAMINOPHEN TAB 650MG DOSE (2X325MG) PO PRN (22:39)
[2020-10-25 23:34] VITALS: BP 156/61
[2020-10-26] MEDS: ACETAMINOPHEN TAB 650MG DOSE (2X325MG) PO PRN (05:47)
[2020-10-26 06:00] VITALS: BP 142/67
[2020-10-26 06:39] LABS: INR 1.99
[2020-10-26 07:55] LABS: HEMATOCRIT 36.5 % (36.0-47.0); HEMOGLOBIN 11.6 g/dl (12.0-15.5); MEAN CORPUSCULAR HEMOGLOBIN 28.9 pg (27.0-33.0); MEAN CORPUSCULAR HGB CONC 31.8 g/dl (32.0-36.5); MEAN CORPUSCULAR VOLUME 90.8 fl (80.0-96.0); PLATELET COUNT, AUTOMATED 212 10^3/uL (150-450); RED BLOOD COUNT 4.02 10^6/uL (4.00-5.40)
[2020-10-26 08:03] LABS: ALBUMIN 3.8 GM/DL (3.2-5.2); ALT/SGPT 18 U/L (12-78); BILIRUBIN,TOTAL 0.3 MG/DL (0.2-1.0); BLOOD UREA NITROGEN 11 MG/DL (7-18); CALCIUM LEVEL 8.5 MG/DL (8.8-10.2); CARBON DIOXIDE LEVEL 29 MEQ/L (21-32); CHLORIDE LEVEL 107 MEQ/L (98-107); GLOMERULAR FILTRATION RATE > 60.0 (>45); GLUCOSE, FASTING 97 MG/DL (70-100); POTASSIUM SERUM 3.9 MEQ/L (3.5-5.1); SODIUM LEVEL 141 MEQ/L (136-145); TOTAL PROTEIN 6.1 GM/DL (6.4-8.2)
[2020-10-26] MEDS ORDERED: OCUVITE 1 TAB PO SCH (09:00)
[2020-10-26] MEDS ORDERED: LISINOPRIL *2.5 MG* TAB PO SCH (09:00)
[2020-10-26] MEDS ORDERED: FUROSEMIDE 20 MG TAB PO SCH (09:00)
[2020-10-26] MEDS ORDERED: SERTRALINE HCL 25 MG TABLET PO SCH (09:00)
[2020-10-26 09:03] VITALS: BP 136/53
[2020-10-26] MEDS ORDERED: AMLO1TAB24 PO (10:38)
[2020-10-26] MEDS ORDERED: WARF-21 PO (10:38)
[2020-10-26] MEDS ORDERED: LISI-898 PO (10:38)
--- NOTE | 2020-10-26 12:49 | DS.PDOC ---
Discharge Summary General Date of Admission Oct 25, 2020 at 15:31 Date of Discharge 10/26/20 Specialist/Consultants Involve cardiology Discharge Summary PROCEDURES PERFORMED DURING STAY: [None]. ADMITTING DIAGNOSES: #hypertensive urgency DISCHARGE DIAGNOSES: #Hypertensive Urgency #Mechanical Aortic Valve with Subtherapeutic INR #Stable Pulmonary Nodules #Migraines #MDD / PTSD /insomnia #macular degeneration # Obesity COMPLICATIONS/CHIEF COMPLAINT: Hypertensive Urgency. HISTORY OF PRESENT ILLNESS: Ms. Whitlock is a 70-year-old female who denies having a history of high blood pre ssure. 1 week ago while visiting her neurologist she was told that her blood pressure was 238/100. Her neurologist instructed her to come to the ER but the patient declined because she felt fine. Over the next couple of days her systolic blood pressure remained in the 200s. On Thursday went to her PCPs office; her PCPs news production assistant Chante noted that the patient's systolic blood pressures in the 180s; the patient reports that an EKG and blood work was done and thereafter she went home. Today she received a call from her implementation services analyst's RN, who routinely checks on her. When she told the RN that her blood pressure was in the 200s she was instructed to come to the ER and obliged. Currently she feels lightheaded, has shortness of breath and has a headache that is different from her migraines. She describes the headache as feeling like there is pressure all over her head. She denies having chest pain. She has chronic bilateral lower extremity edema. She denies eating more salt than usual or missing any doses of her diuretics. She admits to being under a lot of stress. HOSPITAL COURSE: Patient was admitted for further evaluation and treatment for her hypertensive urgency/emergency. Her symptoms have resolved with improvement of her blood pressure. Her INR was noted to be subtherapeutic. She noted that her INR had been supratherapeutic and her warfarin dosages were recently adjusted. She had not had any follow-up INR following the adjustment of her warfarin dosage. Case was discussed with her implementation services analyst with regards to hypertensive emergency and her anticoagulation, with recommendations for adjusting her warfarin dosage and hypertensive medication with discharge home and outpatient follow-up. DISCHARGE MEDICATIONS: Please see below. ALLERGIES: Please see below. PHYSICAL EXAMINATION ON DISCHARGE: VITAL SIGNS: Please see below. GENERAL: NAD, lying comfortably in bed HEENT: NC/AT, EOMI NECK: supple, no masses CARDIOVASCULAR EXAMINATION: systolic click, RRR RESPIRATORY EXAMINATION: CTA B/L ABDOMINAL EXAMINATION: soft, NT, +BS EXTREMITIES: no edema SKIN: no visible rashes NEUROLOGICAL EXAMINATION: no gross focal deficits PSYCHIATRIC EXAMINATION: AAOx3 LABORATORY DATA: Please see below. ACTIVITY: [As tolerated]. DIET: 2 gram sodium DISPOSITION: Discharge home. DISCHARGE INSTRUCTIONS: 1. Follow up with PCP in 1-5 days 2. Follow up INR as directed. 3. Follow up blood pressure with PCP. 4. Follow up cardiology as scheduled. 5. Follow up pulmonary nodules as directed. DISCHARGE CONDITION: [Stable]. TIME SPENT ON DISCHARGE: 35 minutes. Vital Signs/I&Os Vital Signs Date Time Temp Pulse Resp B/P (MAP) Pulse Ox O2 Delivery O2 Flow Rate FiO2 10/26/20 09:03 136/53 10/26/20 06:00 97.3 63 19 96 Room Air I&O- Last 24 Hours up to 6 AM 10/26/20 06:00 Intake Total 275 ml Balance 275 ml Laboratory Data Labs 24H Laboratory Tests 2 10/25/20 16:13: Immature Granulocyte % (Auto) 0.2, Neutrophils (%) (Auto) 64.0, Lymphocytes (%) (Auto) 24.7, Monocytes (%) (Auto) 7.9, Eosinophils (%) (Auto) 2.3, Basophils (%) (Auto) 0.9, Neutrophils # (Auto) 2.8, Lymphocytes # (Auto) 1.1L, Monocytes # (Auto) 0.4, Eosinophils # (Auto) 0.1, Basophils # (Auto) 0.0, Nucleated Red Blood Cells % (auto) 0.0, Anion Gap 11, Glomerular Filtration Rate > 60.0, Calcium Level 9.0, Total Bilirubin 0.4, Direct Bilirubin 0.1, Aspartate Amino Transf (AST/SGOT) 9, Alanine Aminotransferase (ALT/SGPT) 19, Alkaline Phosphatase 62, Total Creatine Kinase 74, Creatine Kinase MB < 1.0, Creatine Kinase MB Relative Index 1.35, Troponin I < 0.02, Total Protein 6.6, Albumin 3.9, Albumin/Globulin Ratio 1.4, Lipase 86 10/25/20 16:21: Prothrombin Time 23.1H, Prothromb Time International Ratio 2.00, Activated Partial Thromboplast Time 33.0 10/25/20 19:23: Coronavirus (COVID-19)(PCR) NEGATIVE, Influenza Type A (RT-PCR) NEGATIVE, Influenza Type B (RT-PCR) NEGATIVE, Respiratory Syncytial Virus (PCR) NEGATIVE 10/26/20 05:48: Nucleated Red Blood Cells % (auto) 0.0, Anion Gap 5L, Glomerular Filtration Rate > 60.0, Calcium Level 8.5L, Total Bilirubin 0.3, Aspartate Amino Transf (AST/S GOT) 11, Alanine Aminotransferase (ALT/SGPT) 18, Alkaline Phosphatase 57, Total Protein 6.1L, Albumin 3.8, Albumin/Globulin Ratio 1.7 10/26/20 05:50: Prothrombin Time 23.0H, Prothromb Time International Ratio 1.99 CBC/BMP Laboratory Tests 10/25/20 16:13 10/26/20 05:48 Discharge Medications Scheduled Amlodipine Besylate (Amlodipine Besylate) 5 Mg Tablet, 5 MG PO QHS Cholecalciferol (Vitamin D3) (Vitamin D3) 1,000 Unit Tablet, 1,000 UNITS PO QHS, (Reported) Cyanocobalamin (Vitamin B-12) (Vitamin B-12) 1,000 Mcg Tablet, 1,000 MCG PO QHS, (Reported) Furosemide (Furosemide) 20 Mg Tablet, 20 MG PO DAILY, (Reported) Gabapentin (Gabapentin) 300 Mg Capsule, 300 MG PO QHS, (Reported) Lisinopril (Lisinopril) 5 Mg Tablet, 1 TAB PO DAILY Multivitamin (Multivitamins) 1 Each Tablet, 1 TAB PO DAILY, (Reported) Sertraline HCl (Sertraline HCl) 50 Mg Tablet, 75 MG PO DAILY, (Reported) Tizanidine HCl (Tizanidine HCl) 2 Mg Tablet, 2 MG PO QHS, (Reported) Trazodone HCl (Trazodone HCl) 100 Mg Tablet, 100 MG PO QHS, (Reported) Vit A/Vit C/Vit E/Zinc/Copper (Preservision Areds Tablet) 1 Each Tablet, 1 TAB PO DAILY, (Reported) Warfarin Sodium (Warfarin Sodium) 10 Mg Tablet, 10 MG PO 5XW, (Reported) QPM: SUN, MON, WED, THURS, SAT Warfarin Sodium (Warfarin Sodium) 7.5 Mg Tablet, 1 TAB PO ASDIRECTED Tuesdays and Fridays Scheduled PRN Acetaminophen (Tylenol Arthritis) 650 Mg Tablet.er, 650 MG PO Q8H PRN for PAIN, (Reported) Gabapentin (Gabapentin) 300 Mg Capsule, 300 MG PO BID PRN for PAIN LEVEL 1-5, (Reported) Nitroglycerin (Nitroglycerin) 0.4 Mg Tab.subl, 0.4 MG SL NITRO PRN for CHEST PAIN, (Reported) Sumatriptan Succinate (Sumatriptan Succinate) 25 Mg Tablet, 25 MG PO BID PRN for MIGRAINE, (Reported) Tizanidine HCl (Tizanidine HCl) 2 Mg Tablet, 2 MG PO DAILY PRN for SPASMS, (Reported) Allergies Coded Allergies: topiramate (Verified Allergy, Unknown, 08/05/20) adhesive tape (Verified Adverse Reaction, Unknown, PEELING SKIN, 12/10/18) ADAM HENDERSON MD Oct 26, 2020 12:49
--- NOTE | 2020-10-26 16:45 | ECGEPIP ---
[facility] - ED Test Date: 2020-10-25 Pat Name: LV BOWEN Department: Room: - Gender: Female Shot Hole Driller: : 1950 Requested By: Mattie Rodriges Order Number: [id number] Reading MD: Alon Ya Measurements Intervals [place] Rate: 56 P: 75 [place]: 180 QRS: 25 QRSD: 84 T: 66 QT: 454 QTc: 438 Interpretive Statements Sinus bradycardia Rate and ectopy decreased from tracing done 08-05-20 Electronically Signed on 10-26-2020 16:45:23 EDT by Alon Ya
[2020-10-26] MEDS ORDERED: WARFARIN SOD 5MG TAB PO SCH (17:00)
== END 2020-10-26 13:46 | disposition home or self-care (01) ==
LOC: M ED 15:30 → M ED INP 15:31 → ENRESERV 20:33 → M MSPAV 22:04
PROVIDERS: ADMIT Internal Medicine; ATTEND Internal Medicine
DX: I16.0 Hypertensive urgency (principal); Z95.4 Presence of other heart-valve replacement; D68.8 Other specified coagulation defects; R91.1 Solitary pulmonary nodule; G43.909 Migraine, unspecified, not intractable, without status migrainosus; H35.30 Unspecified macular degeneration; F43.10 Post-traumatic stress disorder, unspecified; G47.00 Insomnia, unspecified; F32.9 Major depressive disorder, single episode, unspecified; E66.9 Obesity, unspecified; R42 Dizziness and giddiness; R06.02 Shortness of breath; R60.0 Localized edema; E78.9 Disorder of lipoprotein metabolism, unspecified; L40.50 Arthropathic psoriasis, unspecified; M54.9 Dorsalgia, unspecified; G31.84 Mild cognitive impairment of uncertain or unknown etiology; Z98.84 Bariatric surgery status; Z88.8 Allergy status to other drugs, medicaments and biological substances; Z91.048 Other nonmedicinal substance allergy status; Z79.899 Other long term (current) drug therapy; Z79.01 Long term (current) use of anticoagulants
CPT/HCPCS: 36415; 70450; 71045; 71275; 80048; 80053; 80076; 82550; 82553; 83690; 84484; 85025; 85027; 85610; 85730; 87631; 93005; 93041; 94760; 96374; 96375; 96376; 99285; G0378; J2765; Q9967

== ENCOUNTER → 2020-11-02 | Outpatient (CLI) | payer MEDICARE, OTHER ==
[~2020-11-02] MED LIST changes: +AMLO1TAB24 PO; +D31000TA2 PO; +FURO20TA2 PO; +GABA-282 PO; +LISI-898 PO; +MULT-40 PO; +OCUVTAB4 PO; +SERT50TA29 PO; +SUMA25TA3 PO; +TIZA1TAB12 PO; +WARF-21 PO; +WARF-22 PO
--- NOTE | 2020-11-02 12:55 | REP ---
INDICATION: LBP PLEXOPATHY. COMPARISON: Comparison CT study abdomen November 26, 2019. TECHNIQUE: Axial, sagittal, and oblique imaging planes utilized. T1 and T2 weighted scans are obtained with without fat saturation through the sacrum and presacral and pre coccygeal soft tissues.. FINDINGS: Cortical and medullary bone signal intensity is normal in the body of the sacrum. No abnormality is noted in the coccyx. SI joints show no evidence of ankylosis or erosive change or edema. There is minimal hypertrophy and spurring at the anterior margin of the SI joints. There is facet joint hypertrophy at L5-S1 and L4-5 in the lower lumbar spine moderate in degree. The presacral soft tissues show no evidence of soft tissue mass, adenopathy, or edema. Piriformis muscles and sciatic nerves are unremarkable in course and contour. The pre coccygeal ischial rectal and retro sacral soft tissues are unremarkable. The lumbosacral thecal sac is unremarkable. IMPRESSION: Unremarkable MRI study of the sacrum coccyx and adjacent soft tissues. No evidence of the lumbosacral plexus lesion. <Electronically signed by Levi Deluca > 11/02/20 [id number]
[2020-11-02 13:18] LABS: PLATELET COUNT, AUTOMATED 228 10^3/uL (150-450)
[2020-11-02 13:34] LABS: INR 2.41; PROTHROMBIN TIME 26.8 SECONDS (12.5-14.3)
[2020-11-02 13:35] LABS: PARTIAL THROMBOPLASTIN TIME 40.7 SECONDS (24.2-38.5)
[2020-11-02 13:53] LABS: HEMOGLOBIN A1c 5.9 %
[2020-11-02 13:59] LABS: FOLATE > 24.0 NG/ML (>5.4); TOTAL PROTEIN 6.7 GM/DL (6.4-8.2); VITAMIN B12 LEVEL > 2000 PG/ML (247-911)
[2020-11-02 14:13] LABS: ERYTHROCYTE SEDIMENTATION RATE 8 mm/hr (0-30)
[2020-11-03 18:16] LABS: ANTINUCLEAR ANTIBODIES DIRECT Negative (Negative); Lyme Disease IgG/IgM Antibodie <0.91 ISR (0.00-0.90); Lyme Disease IgM Ab Quantitati <0.80 index (0.00-0.79)
[2020-11-06 10:54] LABS: ALBUMIN 4.46 GM/DL (3.29-5.55); ALBUMIN % 66.5 % (55.8-66.1); ALPHA-1-GLOBULIN % 4.1 % (2.9-4.9); ALPHA-1-GLOBULINS 0.27 GM/DL (0.17-0.41); ALPHA-2-GLOBULINS 0.57 GM/DL (0.42-0.99); ALPHA-2-GLOBULINS % 8.5 % (7.1-11.8); BETA-1-GLOBULINS 0.43 GM/DL (0.28-0.60); BETA-1-GLOBULINS % 6.4 % (4.7-7.2); BETA-2-GLOBULINS 0.25 GM/DL (0.19-0.55); BETA-2-GLOBULINS % 3.7 % (3.2-6.5); GAMMA GLOBULIN % 10.8 % (11.1-18.8); GAMMA GLOBULINS 0.72 GM/DL (0.65-1.58)
== END ==
LOC: M PLAIMG 08:16
PROVIDERS: ATTEND Physical Medicine & Rehabilitation
DX: M54.5 Low back pain (principal); M48.02 Spinal stenosis, cervical region

== ENCOUNTER → 2020-11-12 | Outpatient (CLI) | payer MEDICARE, OTHER | LOC: M LAB 06:16 | PROVIDERS: ATTEND Physical Medicine & Rehabilitation | DX: Z01.812 Encounter for preprocedural laboratory examination (principal) ==

== ENCOUNTER 2020-12-05 12:01 | Emergency (ER) | payer MEDICARE, OTHER ==
[~2020-12-05] VITALS: Ht 165.1 cm; Wt 92.4 kg
[2020-12-05] MEDS ORDERED: LOSA25TA14 (12:12)
[2020-12-05 13:10] LABS: BASO % 0.4 % (0.0-1.0); EOS # 0.1 10^3/uL (0.0-0.5); EOS % 1.7 % (0.0-3.0); HEMATOCRIT 35.8 % (36.0-47.0); HEMOGLOBIN 11.8 g/dl (12.0-15.5); LYMPH # 0.9 10^3/uL (1.5-5.0); MEAN CORPUSCULAR HEMOGLOBIN 29.2 pg (27.0-33.0); MEAN CORPUSCULAR VOLUME 88.6 fl (80.0-96.0); MONO # 0.4 10^3/uL (0.0-0.8); MONO % 7.9 % (2.0-8.0); NEUTROPHILS # 3.4 10^3/uL (1.5-8.5); NEUTROPHILS % 71.8 % (36.0-66.0); PLATELET COUNT, AUTOMATED 226 10^3/uL (150-450); RED BLOOD COUNT 4.04 10^6/uL (4.00-5.40); WHITE BLOOD COUNT 4.7 10^3/uL (4.0-10.0)
--- NOTE | 2020-12-05 13:33 | REPVR ---
PROCEDURE INFORMATION: Exam: CT Head Without Contrast Exam date and time: 12/05/2020 1:18 PM Age: 70 years old Clinical indication: Other: Chronic headache, hypertension, blood thinner, R/O ich TECHNIQUE: Imaging protocol: Computed tomography of the head without contrast. Radiation optimization: All CT scans at this facility use at least one of these dose optimization techniques: automated exposure control; mA and/or kV adjustment per patient size (includes targeted exams where dose is matched to clinical indication); or iterative reconstruction. COMPARISON: CT Head without contrast 10/25/2020 6:27 PM FINDINGS: Brain: There is mild- moderate cerebral atrophy. No hemorrhage. No mass effect. Midline structures intact. Minimal patchy low-density in the periventricular white matter. Cerebral ventricles: No ventriculomegaly. Paranasal sinuses: Visualized sinuses are unremarkable. No fluid levels. Mastoid air cells: Visualized mastoid air cells are well aerated. Bones/joints: Unremarkable. No acute fracture. Soft tissues: Unremarkable. IMPRESSION: 1. No acute findings. 2. Mild to moderate cerebral atrophy 3. Minimal chronic microvascular ischemic change in the deep white matter Electronically signed by: Jolie Calix On 12/05/2020 13:32:40 PM
[2020-12-05 13:45] LABS: APPEARANCE, URINE CLEAR (CLEAR); BACTERIA, URINE AUTO NEGATIVE (NEGATIVE); BILIRUBIN, URINE AUTO NEGATIVE (NEGATIVE); BLOOD, URINE BLOOD NEGATIVE (NEGATIVE); COLOR, URINE STRAW (YELLOW); GLUCOSE, URINE (UA) AUTO NEGATIVE (NEGATIVE); KETONE, URINE AUTO NEGATIVE (NEGATIVE); LEUKOCYTE ESTERASE, URINE AUTO NEGATIVE (NEGATIVE); MUCUS, URINE SMALL (NEGATIVE); NITRITE, URINE AUTO NEGATIVE (NEGATIVE); PROTEIN, URINE AUTO NEGATIVE (NEGATIVE); RBC, URINE AUTO 1 /HPF (0-3); SPECIFIC GRAVITY URINE AUTO 1.004 (1.002-1.035); SQUAMOUS EPITHELIAL CELL UR AU 2 /HPF (0-6); UROBILINOGEN, URINE AUTO 0.2 mg/dL (0.0-2.0); WBC, URINE AUTO 0 /HPF (0-3)
[2020-12-05] MEDS ORDERED: RIZATRIPTAN BENZOATE 10 MG TAB PO PRN (13:45)
[2020-12-05 13:46] LABS: ALBUMIN 3.8 GM/DL (3.2-5.2); ALT/SGPT 23 U/L (12-78); BILIRUBIN,DIRECT < 0.1 MG/DL (0.0-0.2); BILIRUBIN,TOTAL 0.4 MG/DL (0.2-1.0); CK-MB VALUE MASS 1.4 NG/ML (<3.6); CPK CREATINE PHOSPHOKINASE 89 U/L (26-192); MB/CK RELATIVE INDEX 1.57 (< OR =4); TOTAL PROTEIN 6.7 GM/DL (6.4-8.2); TROPONIN I < 0.02 NG/ML (< 0.10)
[2020-12-05 15:13] LABS: CK-MB VALUE MASS 1.6 NG/ML (<3.6); CPK CREATINE PHOSPHOKINASE 86 U/L (26-192); MB/CK RELATIVE INDEX 1.86 (< OR =4); TROPONIN I < 0.02 NG/ML (< 0.10)
[2020-12-05] MEDS ORDERED: CARD240C5 PO (15:45)
[2020-12-05 16:20] VITALS: BP 172/72
--- NOTE | 2020-12-05 20:30 | ECGEPIP ---
[facility] - ED Test Date: 2020-12-05 Pat Name: LV BOWEN Department: Room: - Gender: Female Field Operations Farm Manager: TBEDNAMariajose : 1950 Requested By: CHRISTEN Cutler Order Number: [id number] Reading MD: Mattie Rodriges Measurements Intervals [place] Rate: 56 P: 28 [place]: 184 QRS: 17 QRSD: 86 T: 55 QT: 442 QTc: 426 Interpretive Statements Sinus bradycardia similar 10/25/20 Electronically Signed on 12-05-2020 20:30:24 EDT by Mattie Rodriges
--- NOTE | 2020-12-05 20:34 | ECGEPIP ---
[facility] - ED Test Date: 2020-12-05 Pat Name: LV BOWEN Department: Room: - Gender: Female Informatics Nurse: CAMERON : 1950 Requested By: CHRISTEN Cutler Order Number: [id number] Reading MD: Mattie Rodriges Measurements Intervals [place] Rate: 58 P: 74 [place]: 184 QRS: 19 QRSD: 84 T: 57 QT: 452 QTc: 443 Interpretive Statements Sinus bradycardia similar 12/05/20 Electronically Signed on 12-05-2020 20:33:51 EDT by Mattie Rodriges
== END 2020-12-05 16:20 | disposition home or self-care (01) ==
LOC: M ED 12:01 → CANBEDREQ 13:38 → M ED 16:20
DX: I10 Essential (primary) hypertension (principal); R51.9 Headache, unspecified; R07.89 Other chest pain; R00.1 Bradycardia, unspecified; E78.5 Hyperlipidemia, unspecified; F32.9 Major depressive disorder, single episode, unspecified; Z79.01 Long term (current) use of anticoagulants; Z79.899 Other long term (current) drug therapy; Z91.89 Other specified personal risk factors, not elsewhere classified; Z88.8 Allergy status to other drugs, medicaments and biological substances

== ENCOUNTER 2020-12-17 10:52 | Emergency (ER) | payer MEDICARE, OTHER ==
[~2020-12-17] VITALS: Ht 165.1 cm; Wt 90.9 kg
[~2020-12-17 10:52] MED LIST changes: +CARD240C5 PO; +DONE-1 PO; -DONETAB6 PO; -LISI-898 PO; +LISI5TAB11 PO; +LOSA25TA13
[2020-12-17] MEDS ORDERED: ISOVUE-370 76% 100ML VIAL As Ordered ONE (11:53)
[2020-12-17 12:09] LABS: BASO % 0.5 % (0.0-1.0); EOS # 0.1 10^3/uL (0.0-0.5); EOS % 1.9 % (0.0-3.0); HEMATOCRIT 38.2 % (36.0-47.0); HEMOGLOBIN 12.4 g/dl (12.0-15.5); LYMPH # 0.9 10^3/uL (1.5-5.0); LYMPH % 20.4 % (24.0-44.0); MEAN CORPUSCULAR HGB CONC 32.5 g/dl (32.0-36.5); MEAN CORPUSCULAR VOLUME 89.3 fl (80.0-96.0); MONO # 0.4 10^3/uL (0.0-0.8); MONO % 9.6 % (2.0-8.0); NEUTROPHILS # 2.9 10^3/uL (1.5-8.5); NEUTROPHILS % 67.4 % (36.0-66.0); PLATELET COUNT, AUTOMATED 243 10^3/uL (150-450); RED BLOOD COUNT 4.28 10^6/uL (4.00-5.40); WHITE BLOOD COUNT 4.3 10^3/uL (4.0-10.0)
[2020-12-17 12:19] LABS: PARTIAL THROMBOPLASTIN TIME 41.9 SECONDS (25.9-37.0)
[2020-12-17 12:41] LABS: BILIRUBIN,DIRECT 0.1 MG/DL (0.0-0.2); BILIRUBIN,TOTAL 0.4 MG/DL (0.2-1.0); FREE T4 0.91 NG/DL (0.76-1.46); TOTAL PROTEIN 6.8 GM/DL (6.4-8.2)
[2020-12-17] MEDS ORDERED: ACETAMINOPHEN TAB 650MG DOSE (2X325MG) PO ONE (12:50)
[2020-12-17] MEDS ORDERED: ONDANSETRON 4MG/2ML VIAL IV ONE (13:15)
[2020-12-17] MEDS ORDERED: MORPHINE 2 MG/ML 1ML VIAL (J2270) IV ONE (13:15)
[2020-12-17 14:35] LABS: ERYTHROCYTE SEDIMENTATION RATE 11 mm/hr (0-30)
[2020-12-17] MEDS ORDERED: amLODIPine 5 MG TAB PO ONE (18:50)
[2020-12-17] MEDS ORDERED: LOSA100T45 PO (18:55)
[2020-12-17] MEDS ORDERED: ACETAMINOPHEN 325 MG TAB PO ONE (19:10)
[2020-12-17 19:13] VITALS: BP 179/79
[2020-12-17 19:39] VITALS: BP 160/88
== END 2020-12-17 19:39 | disposition home or self-care (01) ==
LOC: M ED 10:52
DX: R00.1 Bradycardia, unspecified (principal); I10 Essential (primary) hypertension; R07.9 Chest pain, unspecified; R51.9 Headache, unspecified; R20.2 Paresthesia of skin; Z79.01 Long term (current) use of anticoagulants; Z79.899 Other long term (current) drug therapy; Z88.8 Allergy status to other drugs, medicaments and biological substances; Z91.89 Other specified personal risk factors, not elsewhere classified
CPT/HCPCS: 70450; 70496; 70498; 70551; 71045; 80047; 80076; 83690; 83880; 84439; 84443; 84484; 85025; 85610; 85652; 85730; 93005; 93041; 94760; 96374; 96375; 99285; J2270; J2405; Q9967

== ENCOUNTER → 2021-01-09 | Outpatient (CLI) | payer MEDICARE, OTHER ==
[~2021-01-09] MED LIST changes: -DONE-1 PO; +DONETAB6 PO; +LISI-898 PO; -LISI5TAB11 PO; +LOSA100T50 PO; -LOSA25TA13; +LOSA25TA14
[2021-01-09 14:48] LABS: BLOOD UREA NITROGEN 17 MG/DL (7-18); CALCIUM LEVEL 8.9 MG/DL (8.8-10.2); CARBON DIOXIDE LEVEL 29 MEQ/L (21-32); CHLORIDE LEVEL 96 MEQ/L (98-107); CREATININE FOR GFR 0.85 MG/DL (0.55-1.30); GLOMERULAR FILTRATION RATE > 60.0 (>45); GLUCOSE, FASTING 121 MG/DL (70-100); NT-PRO BNP 332 PG/ML (<125); POTASSIUM SERUM 4.3 MEQ/L (3.5-5.1); SODIUM LEVEL 131 MEQ/L (136-145)
== END ==
LOC: M PLALAB 10:54
PROVIDERS: ATTEND Physician Assistant
DX: I10 Essential (primary) hypertension (principal)

== ENCOUNTER → 2021-01-14 | Outpatient (CLI) | payer MEDICARE, OTHER ==
[2021-01-14 16:11] LABS: INR 2.03; PROTHROMBIN TIME 23.4 SECONDS (12.7-14.5)
== END ==
LOC: M PLALAB 14:34
PROVIDERS: ATTEND Family Medicine
DX: Z51.81 Encounter for therapeutic drug level monitoring (principal); Z79.01 Long term (current) use of anticoagulants

== ENCOUNTER 2021-01-18 11:28 | Emergency (ER) | payer MEDICARE, OTHER ==
[~2021-01-18] VITALS: Ht 165.1 cm; Wt 92.4 kg
[2021-01-18] MEDS ORDERED: WARF-23 PO (12:13)
--- NOTE | 2021-01-18 12:15 | REP ---
INDICATION: CHEST PAIN. COMPARISON: Comparison chest x-ray December 17, 2020. TECHNIQUE: Portable upright AP chest radiograph. FINDINGS: Median sternotomy wires are noted along with EKG electrodes. There is minimal linear fibrosis in the left inferior perihilar region. A a loop recorder device is visible projecting in the left upper quadrant. No infiltrate is seen in the lung gale. The pleural angles are sharp. Pulmonary vasculature is not increased. The heart is near the upper range of normal in size unchanged. IMPRESSION: Borderline heart size prior sternotomy and what appears to be aortic valve replacement. Loop recorder. Linear fibrosis on the left. Otherwise no acute disease. <Electronically signed by Levi Deluca > 01/18/21 1212
[2021-01-18 12:21] LABS: BASO % 0.4 % (0.0-1.0); EOS # 0.1 10^3/uL (0.0-0.5); EOS % 1.5 % (0.0-3.0); HEMATOCRIT 36.2 % (36.0-47.0); HEMOGLOBIN 12.1 g/dl (12.0-15.5); LYMPH # 0.9 10^3/uL (1.5-5.0); LYMPH % 18.3 % (24.0-44.0); MEAN CORPUSCULAR HGB CONC 33.4 g/dl (32.0-36.5); MEAN CORPUSCULAR VOLUME 86.8 fl (80.0-96.0); MONO # 0.4 10^3/uL (0.0-0.8); MONO % 9.3 % (2.0-8.0); NEUTROPHILS # 3.3 10^3/uL (1.5-8.5); NEUTROPHILS % 70.3 % (36.0-66.0); PLATELET COUNT, AUTOMATED 232 10^3/uL (150-450); RED BLOOD COUNT 4.17 10^6/uL (4.00-5.40); WHITE BLOOD COUNT 4.6 10^3/uL (4.0-10.0)
[2021-01-18 12:47] LABS: BLOOD UREA NITROGEN 11 MG/DL (7-18); CALCIUM LEVEL 9.3 MG/DL (8.8-10.2); CARBON DIOXIDE LEVEL 27 MEQ/L (21-32); CHLORIDE LEVEL 95 MEQ/L (98-107); CK-MB VALUE MASS 1.4 NG/ML (<3.6); CPK CREATINE PHOSPHOKINASE 136 U/L (26-192); CREATININE FOR GFR 0.76 MG/DL (0.55-1.30); GLOMERULAR FILTRATION RATE > 60.0 (>45); GLUCOSE, FASTING 93 MG/DL (70-100); MB/CK RELATIVE INDEX 1.03 (< OR =4); POTASSIUM SERUM 4.3 MEQ/L (3.5-5.1); SODIUM LEVEL 128 MEQ/L (136-145); TROPONIN I < 0.02 NG/ML (< 0.10)
[2021-01-18] MEDS ORDERED: ACETAMINOPHEN 500 MG TAB PO ONE (13:00)
[2021-01-18] MEDS ORDERED: diphenhydrAMINE 50MG/ML VIAL (J1200) IV ONE (13:05)
[2021-01-18] MEDS ORDERED: PROCHLORPERAZINE 10MG/2ML VIAL (J0780 PER 1) IV ONE (13:05)
[2021-01-18 13:15] VITALS: BP 178/78
[2021-01-18 13:48] LABS: INR 1.93; PROTHROMBIN TIME 22.5 SECONDS (12.7-14.5)
[2021-01-18 14:31] VITALS: BP 178/69
--- NOTE | 2021-01-18 20:02 | ECGEPIP ---
[facility] - ED Test Date: 2021-01-18 Pat Name: LV BOWEN Department: Room: - Gender: Female Wet Finisher Wool: ANA : 1950 Requested By: Nain Marinelli Order Number: [id number] Reading MD: Mattie Rodriges Measurements Intervals [place] Rate: 56 P: 21 [place]: 172 QRS: 10 QRSD: 88 T: 59 QT: 436 QTc: 420 Interpretive Statements Sinus bradycardia NSTTW abnormalities similar 12/17/20 Electronically Signed on 01-18-2021 20:02:10 EDT by Mattie Rodriges
== END 2021-01-18 15:13 | disposition home or self-care (01) ==
LOC: M ED 11:28
DX: E87.1 Hypo-osmolality and hyponatremia (principal); I10 Essential (primary) hypertension; R51.9 Headache, unspecified; R94.31 Abnormal electrocardiogram [ECG] [EKG]; E78.5 Hyperlipidemia, unspecified; F43.10 Post-traumatic stress disorder, unspecified; H40.9 Unspecified glaucoma; Z79.01 Long term (current) use of anticoagulants; Z91.048 Other nonmedicinal substance allergy status; Z88.8 Allergy status to other drugs, medicaments and biological substances; Z90.49 Acquired absence of other specified parts of digestive tract; Z98.890 Other specified postprocedural states
CPT/HCPCS: 71045; 80048; 82550; 82553; 84484; 85025; 85610; 93005; 93041; 94760; 96374; 96375; 99285; J0780; J1200

== ENCOUNTER → 2021-01-21 | Outpatient (REF) | payer MEDICARE, OTHER | LOC: M LAB REF 18:58 | PROVIDERS: ATTEND Physician Assistant | DX: L28.1 Prurigo nodularis (principal) | CPT/HCPCS: 11102; 11103; 88305; G0463 ==

== ENCOUNTER → 2021-03-04 | Outpatient (REF) | payer MEDICARE, OTHER ==
[2021-03-04 18:02] LABS: APPEARANCE, URINE CLOUDY (CLEAR); BACTERIA, URINE AUTO 1+ (NEGATIVE); BILIRUBIN, URINE AUTO NEGATIVE (NEGATIVE); BLOOD, URINE BLOOD 3+ (NEGATIVE); COLOR, URINE YELLOW (YELLOW); GLUCOSE, URINE (UA) AUTO NEGATIVE (NEGATIVE); KETONE, URINE AUTO TRACE mg/dL (NEGATIVE); LEUKOCYTE ESTERASE, URINE AUTO 3+ (NEGATIVE); MUCUS, URINE SMALL (NEGATIVE); NITRITE, URINE AUTO POSITIVE (NEGATIVE); PROTEIN, URINE AUTO 2+ mg/dL (NEGATIVE); RBC, URINE AUTO TNTC /HPF (0-3); SPECIFIC GRAVITY URINE AUTO 1.013 (1.002-1.035); SQUAMOUS EPITHELIAL CELL UR AU 1 /HPF (0-6); WBC, URINE AUTO TNTC /HPF (0-3)
== END ==
LOC: M SFHCPLAZ 16:55
PROVIDERS: ATTEND Physician Assistant
DX: R35.0 Frequency of micturition (principal); Z79.01 Long term (current) use of anticoagulants
CPT/HCPCS: 81001; 81002; 85610; 87088; 87186; G0463

== ENCOUNTER → 2021-03-20 | Outpatient (CLI) | payer MEDICARE, OTHER ==
[~2021-03-20] MED LIST changes: +DONE-1 PO; -DONETAB6 PO; -LISI-898 PO; +LISI5TAB11 PO; +LOSA100T45 PO; -LOSA100T50 PO; +LOSA25TA13; -LOSA25TA14; -OMEP-221 PO; +OMEP40CA5 PO
[2021-03-20 12:42] LABS: BLOOD UREA NITROGEN 11 MG/DL (7-18); CALCIUM LEVEL 9.3 MG/DL (8.8-10.2); CARBON DIOXIDE LEVEL 28 MEQ/L (21-32); CHLORIDE LEVEL 101 MEQ/L (98-107); CREATININE FOR GFR 0.75 MG/DL (0.55-1.30); GLOMERULAR FILTRATION RATE > 60.0 (>45); GLUCOSE, FASTING 90 MG/DL (70-100); POTASSIUM SERUM 4.3 MEQ/L (3.5-5.1); SODIUM LEVEL 137 MEQ/L (136-145)
== END ==
LOC: M LAB 10:51
PROVIDERS: ATTEND Physician Assistant
DX: I10 Essential (primary) hypertension (principal)

== ENCOUNTER → 2021-03-25 | Outpatient (CLI) | payer MEDICARE, OTHER ==
[~2021-03-25] MED LIST changes: -DONE-1 PO; +DONETAB6 PO; +LISI-898 PO; -LISI5TAB11 PO; -LOSA100T45 PO; +LOSA100T50 PO; -LOSA25TA13; +LOSA25TA14; +OMEP-221 PO; -OMEP40CA5 PO
--- NOTE | 2021-03-25 11:27 | PFTRPT ---
Site: [facility], [address] [place] [address], [id number] ID: [id number] Name: LV BOWEN Visit Date: 03/25/2021 Second ID: [id number] Referring Doctor: Jenn Ramirez Reviewing Doctor: Brock Sigala MD Inspector Pawnshop Detail: Elver MORRIS RRT Age: 70 : 1950 Sex: Female Race: Height: 65.00 Inches Weight: 200.00 Lbs BSA: 1.98 Order IDs: [id number] Requested Test(s): <RESP-PFT.PFT B/A> Diagnosis: R06.02 test meet the ATS standards for acceptability and repeatability. Pt was given four puffs of albuterol for post bronchodilator. Review Status: Not Reviewed Pre-Bronch Post-Bronch Pred Actual %Pred Actual %Chng SPIROMETRY FVC (L) 3.12 2.37 75 2.39 FEV1 (L) 2.37 1.92 80 1.99 4 FEV1/FVC (%) 76 81 106 83 3 FEF 25% (L/sec) 4.85 3.89 80 4.09 5 FEF 50% (L/sec) 3.34 2.95 88 3.18 7 FEF 75% (L/sec) 0.98 0.64 65 0.89 39 FEF 25-75% (L/sec) 1.96 1.83 93 2.33 27 FEF Max (L/sec) 5.81 3.98 68 4.48 12 FIVC (L) 2.38 2.03 -14 FIF 50% (L/sec) 3.50 2.55 72 1.97 -22 FIF Max (L/sec) 2.77 3.37 21 MVV (L/min) 88 58 65 Expiratory Time (sec) 6.70 6.66 Back Extrap Vol (L) 0.12 0.10 -11 Time To FEFmax (sec) 0.127 0.157 23 LUNG VOLUMES SVC (L) 2.96 2.39 80 IC (L) 2.22 1.86 83 ERV (L) 0.74 0.53 71 TGV (L) 2.98 2.90 97 DIFFUSION DLCOunc (ml/min/mmHg) 20.94 14.72 70 DLCOcor (ml/min/mmHg) 20.94 15.48 73 DL/VA (ml/min/mmHg/L) 4.03 4.24 105 VA (L) 5.20 3.65 70 BHT (sec) 9.97 IVC (L) 2.13 TLC (SB) (L) 3.80 AIRWAYS RESISTANCE Raw (cmH2O/L/s) 1.86 0.95 51 Gaw (L/s/cmH2O) 1.03 1.05 102 sRaw (cmH2O*s) 4.76 2.67 56 sGaw (1/cmH2O*s) 0.20 0.38 189 BLOOD GASES Hgb (gm/dL) 11.9
== END ==
LOC: M CARPUL 11:00
PROVIDERS: ATTEND Nurse Practitioner Adult Health
DX: R06.02 Shortness of breath (principal)

== ENCOUNTER → 2021-04-09 | Outpatient (CLI) | payer MEDICARE, OTHER ==
[~2021-04-09] MED LIST changes: +DONE-1 PO; -DONETAB6 PO; -LISI-898 PO; +LISI5TAB11 PO; +LOSA100T45 PO; -LOSA100T50 PO; +LOSA25TA13; -LOSA25TA14
[2021-04-09 13:55] LABS: PROTHROMBIN TIME 55.2 SECONDS (12.7-14.5)
[2021-04-09 14:08] LABS: INR 6.26
== END ==
LOC: M PLALAB 09:43
PROVIDERS: ATTEND Physician Assistant Medical
DX: Z51.81 Encounter for therapeutic drug level monitoring (principal); A07.2 Cryptosporidiosis; L28.1 Prurigo nodularis; J30.89 Other allergic rhinitis; Z79.01 Long term (current) use of anticoagulants; Z95.2 Presence of prosthetic heart valve; Z91.09 Other allergy status, other than to drugs and biological substances
CPT/HCPCS: 36415; 85610; G0463

== ENCOUNTER → 2021-04-10 | Outpatient (REF) | payer MEDICARE, OTHER ==
[~2021-04-10] MED LIST changes: -DONE-1 PO; +DONETAB6 PO; +LISI-898 PO; -LISI5TAB11 PO; -LOSA100T45 PO; +LOSA100T50 PO; -LOSA25TA13; +LOSA25TA14
== END ==
LOC: M SFHCPLAZ 15:31
PROVIDERS: ATTEND Physician Assistant Medical
DX: A07.2 Cryptosporidiosis (principal)

== ENCOUNTER → 2021-04-18 | Outpatient (CLI) | payer MEDICARE, OTHER ==
[~2021-04-18] MED LIST changes: +METHACHOLINE KIT (J7674) INH ONE
--- NOTE | 2021-04-18 10:47 | PFTRPT ---
Site: [facility], [address] [place], [address] ID: [id number] Name: LV BOWEN Visit Date: 04/18/2021 Second ID: [id number] Referring Doctor: Jenn Ramirez Reviewing Doctor: Brock Sigala MD Crew Dispatcher: Elver MORRIS RRT Age: 70 : 1950 Sex: Female Race: Height: 65.00 Inches Weight: 200.00 Lbs BSA: 1.98 Order IDs: [id number] Requested Test(s): <RESP-PFT.METH CHAL> Diagnosis: R06.02 puffs of albuterol for post bronchodilator. Review Status: Not Reviewed Pre-Bronch Post-Bronch Pred Actual %Pred Actual %Chng SPIROMETRY FVC (L) 3.15 2.40 76 2.25 -6 FEV1 (L) 2.39 1.97 82 1.87 -5 FEV1/FVC (%) 76 82 107 83 1 FEF 25% (L/sec) 4.87 5.14 105 5.72 11 FEF 50% (L/sec) 3.37 3.32 98 2.38 -28 FEF 75% (L/sec) 1.00 0.72 72 0.50 -30 FEF 25-75% (L/sec) 2.00 2.08 103 1.62 -22 FEF Max (L/sec) 5.88 5.15 87 5.89 14 FIVC (L) 1.91 2.15 13 FIF 50% (L/sec) 3.52 3.01 85 2.43 -19 FIF Max (L/sec) 3.19 2.54 -20 Expiratory Time (sec) 6.26 6.16 -1 Back Extrap Vol (L) 0.11 0.08 -30 Time To FEFmax (sec) 0.110 0.084 -23
== END ==
LOC: M CARPUL 09:35
PROVIDERS: ATTEND Nurse Practitioner Adult Health
DX: R06.02 Shortness of breath (principal)
CPT/HCPCS: 94070; 95070; J7674

== ENCOUNTER → 2021-04-26 | Outpatient (CLI) | payer MEDICARE, OTHER ==
[~2021-04-26] MED LIST changes: +DONE-1 PO; -DONETAB6 PO; -LISI-898 PO; +LISI5TAB11 PO; +LOSA100T45 PO; -LOSA100T50 PO; +LOSA25TA13; -LOSA25TA14; -METHACHOLINE KIT (J7674) INH ONE
[2021-04-26 15:55] LABS: C REACTIVE PROTEIN QUANTITATIV < 0.30 MG/DL (0.00-0.30); RHEUMATOID FACTOR QUANT < 10.0 IU/ML (<15.0)
== END ==
LOC: M PLALAB 13:47
PROVIDERS: ATTEND Physician Assistant
DX: M47.812 Spondylosis without myelopathy or radiculopathy, cervical region (principal)

== ENCOUNTER → 2021-07-30 | Outpatient (CLI) | payer MEDICARE, OTHER ==
[~2021-07-30] MED LIST changes: -D31000TA2 PO; -OMEP-221 PO; +OMEP40CA5 PO; +VITA100093 PO
== END ==
LOC: M RAD 13:53
PROVIDERS: ATTEND Nurse Practitioner Adult Health
DX: R91.8 Other nonspecific abnormal finding of lung field (principal); J84.10 Pulmonary fibrosis, unspecified; Z95.2 Presence of prosthetic heart valve; I70.0 Atherosclerosis of aorta; M25.78 Osteophyte, vertebrae; Z95.828 Presence of other vascular implants and grafts; Z98.84 Bariatric surgery status

== ENCOUNTER → 2021-08-01 | Outpatient (CLI) | payer MEDICARE, OTHER ==
[2021-08-01 10:20] LABS: INR 2.26; PROTHROMBIN TIME 25.3 SECONDS (12.7-14.5)
== END ==
LOC: M PLALAB 08:32
PROVIDERS: ATTEND Physician Assistant Medical
DX: Z95.2 Presence of prosthetic heart valve (principal)

== ENCOUNTER 2021-08-23 08:20 | Emergency (ER) | payer MEDICARE, OTHER ==
[~2021-08-23] VITALS: Ht 165.1 cm; Wt 83.6 kg
[2021-08-23 09:48] LABS: BASO % 0.8 % (0.0-1.0); EOS # 0.1 10^3/uL (0.0-0.5); HEMATOCRIT 34.5 % (36.0-47.0); LYMPH # 1.5 10^3/uL (1.5-5.0); LYMPH % 29.7 % (24.0-44.0); MEAN CORPUSCULAR HGB CONC 31.9 g/dl (32.0-36.5); MEAN CORPUSCULAR VOLUME 87.8 fl (80.0-96.0); MONO # 0.4 10^3/uL (0.0-0.8); MONO % 8.6 % (2.0-8.0); NEUTROPHILS # 2.9 10^3/uL (1.5-8.5); NEUTROPHILS % 58.7 % (36.0-66.0); PLATELET COUNT, AUTOMATED 246 10^3/uL (150-450); RED BLOOD COUNT 3.93 10^6/uL (4.00-5.40)
[2021-08-23 09:58] LABS: INR 1.23; PROTHROMBIN TIME 15.9 SECONDS (12.7-14.5)
[2021-08-23 10:17] LABS: CK-MB VALUE MASS < 1.0 NG/ML (<3.6); CPK CREATINE PHOSPHOKINASE 76 U/L (26-192); MB/CK RELATIVE INDEX 1.32 (< OR =4)
[2021-08-23 10:26] LABS: ALBUMIN 3.7 GM/DL (3.2-5.2); ALT/SGPT 16 U/L (12-78); BILIRUBIN,DIRECT 0.1 MG/DL (0.0-0.2); BILIRUBIN,TOTAL 0.4 MG/DL (0.2-1.0); BLOOD UREA NITROGEN 11 MG/DL (7-18); CALCIUM LEVEL 9.3 MG/DL (8.8-10.2); CARBON DIOXIDE LEVEL 26 MEQ/L (21-32); CHLORIDE LEVEL 103 MEQ/L (98-107); CREATININE FOR GFR 0.69 MG/DL (0.55-1.30); GLOMERULAR FILTRATION RATE > 60.0 (>39); GLUCOSE, FASTING 93 MG/DL (70-100); LIPASE 97 U/L (73-393); NT-PRO BNP 621 PG/ML (<125); POTASSIUM SERUM 4.2 MEQ/L (3.5-5.1); SODIUM LEVEL 136 MEQ/L (136-145); TOTAL PROTEIN 6.4 GM/DL (6.4-8.2)
[2021-08-23] MEDS ORDERED: WARF-23 PO (11:04)
[2021-08-23 11:15] VITALS: BP 189/82
== END 2021-08-23 11:27 | disposition home or self-care (01) ==
LOC: M ED 08:20
DX: I10 Essential (primary) hypertension (principal); F41.9 Anxiety disorder, unspecified; R79.1 Abnormal coagulation profile; F32.9 Major depressive disorder, single episode, unspecified; F43.10 Post-traumatic stress disorder, unspecified; Z79.899 Other long term (current) drug therapy; Z91.89 Other specified personal risk factors, not elsewhere classified; Z88.8 Allergy status to other drugs, medicaments and biological substances

== ENCOUNTER → 2021-09-09 | Outpatient (REF) | payer MEDICARE, OTHER ==
[2021-09-09 13:56] LABS: APPEARANCE, URINE CLOUDY (CLEAR); BACTERIA, URINE AUTO NEGATIVE (NEGATIVE); BILIRUBIN, URINE AUTO NEGATIVE (NEGATIVE); BLOOD, URINE BLOOD 1+ (NEGATIVE); COLOR, URINE AMBER (YELLOW); GLUCOSE, URINE (UA) AUTO NEGATIVE (NEGATIVE); KETONE, URINE AUTO TRACE mg/dL (NEGATIVE); LEUKOCYTE ESTERASE, URINE AUTO 3+ (NEGATIVE); NITRITE, URINE AUTO NEGATIVE (NEGATIVE); PROTEIN, URINE AUTO 3+ mg/dL (NEGATIVE); RBC, URINE AUTO 123 /HPF (0-3); SPECIFIC GRAVITY URINE AUTO 1.013 (1.002-1.035); SQUAMOUS EPITHELIAL CELL UR AU 8 /HPF (0-6); WBC, URINE AUTO TNTC /HPF (0-3)
== END ==
LOC: M SMT 13:04
PROVIDERS: ATTEND Family Medicine
DX: R30.0 Dysuria (principal)

== ENCOUNTER → 2021-10-10 | Outpatient (CLI) | payer MEDICARE, OTHER ==
[2021-10-10 13:29] LABS: BASO % 0.4 % (0.0-1.0); EOS % 0.7 % (0.0-3.0); HEMATOCRIT 34.5 % (36.0-47.0); HEMOGLOBIN 10.8 g/dl (12.0-15.5); LYMPH # 0.7 10^3/uL (1.5-5.0); LYMPH % 12.2 % (24.0-44.0); MEAN CORPUSCULAR HEMOGLOBIN 27.3 pg (27.0-33.0); MEAN CORPUSCULAR HGB CONC 31.3 g/dl (32.0-36.5); MEAN CORPUSCULAR VOLUME 87.3 fl (80.0-96.0); MONO # 0.4 10^3/uL (0.0-0.8); MONO % 7.2 % (2.0-8.0); NEUTROPHILS # 4.3 10^3/uL (1.5-8.5); NEUTROPHILS % 79.3 % (36.0-66.0); PLATELET COUNT, AUTOMATED 250 10^3/uL (150-450); RED BLOOD COUNT 3.95 10^6/uL (4.00-5.40); WHITE BLOOD COUNT 5.4 10^3/uL (4.0-10.0)
[2021-10-10 13:58] LABS: HEMOGLOBIN A1c 5.7 %
[2021-10-10 14:30] LABS: C REACTIVE PROTEIN QUANTITATIV 0.43 MG/DL (0.00-0.30); CHOLESTEROL RISK RATIO 2.28 (<5); FREE T4 1.13 NG/DL (0.76-1.46); THYROID STIMULATING HORMONE 1.61 uIU/ML (0.358-3.740)
== END ==
LOC: M PLALAB 10:48
PROVIDERS: ATTEND Internal Medicine Hematology
DX: R53.83 Other fatigue (principal); Z79.899 Other long term (current) drug therapy

== ENCOUNTER → 2021-11-07 | Outpatient (CLI) | payer MEDICARE, OTHER ==
[2021-11-07 11:07] LABS: BLOOD UREA NITROGEN 15 MG/DL (7-18); CALCIUM LEVEL 9.3 MG/DL (8.8-10.2); CARBON DIOXIDE LEVEL 26 MEQ/L (21-32); CHLORIDE LEVEL 100 MEQ/L (98-107); CREATININE FOR GFR 0.71 MG/DL (0.55-1.30); GLOMERULAR FILTRATION RATE > 60.0 (>39); GLUCOSE, FASTING 89 MG/DL (70-100); POTASSIUM SERUM 4.6 MEQ/L (3.5-5.1); SODIUM LEVEL 134 MEQ/L (136-145)
== END ==
LOC: M PLALAB 09:02
PROVIDERS: ATTEND Physician Assistant
DX: I49.3 Ventricular premature depolarization (principal)

== ENCOUNTER 2021-11-09 23:23 | Emergency (ER) | payer MEDICARE, OTHER ==
[~2021-11-09] VITALS: Ht 165.1 cm; Wt 81.8 kg
[2021-11-10 00:21] LABS: BASO % 0.1 % (0.0-1.0); EOS % 0.1 % (0.0-3.0); HEMATOCRIT 29.9 % (36.0-47.0); HEMOGLOBIN 9.7 g/dl (12.0-15.5); LYMPH # 0.9 10^3/uL (1.5-5.0); LYMPH % 7.3 % (24.0-44.0); MEAN CORPUSCULAR HEMOGLOBIN 27.6 pg (27.0-33.0); MEAN CORPUSCULAR HGB CONC 32.4 g/dl (32.0-36.5); MEAN CORPUSCULAR VOLUME 84.9 fl (80.0-96.0); MONO % 8.2 % (2.0-8.0); NEUTROPHILS # 10.5 10^3/uL (1.5-8.5); NEUTROPHILS % 83.8 % (36.0-66.0); PLATELET COUNT, AUTOMATED 276 10^3/uL (150-450); RED BLOOD COUNT 3.52 10^6/uL (4.00-5.40); WHITE BLOOD COUNT 12.6 10^3/uL (4.0-10.0)
[2021-11-10] MEDS ORDERED: DIVA500T94 (00:22)
[2021-11-10] MEDS ORDERED: ZOLP5TAB (00:22)
[2021-11-10 00:48] LABS: CK-MB VALUE MASS 1.3 NG/ML (<3.6); MB/CK RELATIVE INDEX 1.49 (< OR =4)
[2021-11-10 00:50] LABS: ALBUMIN 3.8 GM/DL (3.2-5.2); ALT/SGPT 19 U/L (12-78); BILIRUBIN,DIRECT 0.1 MG/DL (0.0-0.2); BILIRUBIN,TOTAL 0.3 MG/DL (0.2-1.0); BLOOD UREA NITROGEN 22 MG/DL (7-18); CALCIUM LEVEL 8.8 MG/DL (8.8-10.2); CARBON DIOXIDE LEVEL 26 MEQ/L (21-32); CHLORIDE LEVEL 104 MEQ/L (98-107); CREATININE FOR GFR 0.77 MG/DL (0.55-1.30); GLOMERULAR FILTRATION RATE > 60.0 (>39); GLUCOSE, FASTING 94 MG/DL (70-100); NT-PRO BNP 658 PG/ML (<125); POTASSIUM SERUM 4.4 MEQ/L (3.5-5.1); SODIUM LEVEL 134 MEQ/L (136-145); TOTAL PROTEIN 6.3 GM/DL (6.4-8.2)
[2021-11-10] MEDS ORDERED: MORPHINE 4 MG/ML 1ML VIAL/SYRINGE IV ONE (00:55)
[2021-11-10] MEDS ORDERED: ISOVUE-370 76% 100ML VIAL As Ordered ONE (01:45)
[2021-11-10] MEDS ORDERED: GI COCKTAIL 50ML BTL(HYOSCYAMINE/MAALOX/LIDOCAINE VISCOUS)(1:3:1) PO ONE (02:50)
[2021-11-10 03:00] VITALS: BP 157/73
[2021-11-10] MEDS ORDERED: FAMO20TA PO (03:03)
== END 2021-11-10 03:00 | disposition home or self-care (01) ==
LOC: M ED 23:23
DX: K21.9 Gastro-esophageal reflux disease without esophagitis (principal); R07.89 Other chest pain; I51.7 Cardiomegaly; I10 Essential (primary) hypertension; Z98.84 Bariatric surgery status; Z79.899 Other long term (current) drug therapy; Z91.89 Other specified personal risk factors, not elsewhere classified; Z88.8 Allergy status to other drugs, medicaments and biological substances
CPT/HCPCS: 71045; 71275; 80048; 80076; 82550; 82553; 83880; 84484; 85025; 87486; 87581; 87633; 87798; 93005; 93041; 94760; 96374; 99285; J2270; Q9967

== ENCOUNTER → 2021-11-20 | Outpatient (REF) | payer MEDICARE, OTHER ==
[~2021-11-20] MED LIST changes: +DIVA500T94; +FAMO20TA PO; +ZOLP5TAB
[2021-11-20 13:09] LABS: BASO % 0.5 % (0.0-1.0); EOS # 0.1 10^3/uL (0.0-0.5); EOS % 1.1 % (0.0-3.0); HEMATOCRIT 34.6 % (36.0-47.0); HEMOGLOBIN 10.8 g/dl (12.0-15.5); LYMPH % 18.3 % (24.0-44.0); MEAN CORPUSCULAR HEMOGLOBIN 27.1 pg (27.0-33.0); MEAN CORPUSCULAR HGB CONC 31.2 g/dl (32.0-36.5); MEAN CORPUSCULAR VOLUME 86.9 fl (80.0-96.0); MONO # 0.5 10^3/uL (0.0-0.8); MONO % 9.5 % (2.0-8.0); NEUTROPHILS # 3.9 10^3/uL (1.5-8.5); NEUTROPHILS % 70.4 % (36.0-66.0); PLATELET COUNT, AUTOMATED 284 10^3/uL (150-450); RED BLOOD COUNT 3.98 10^6/uL (4.00-5.40); WHITE BLOOD COUNT 5.5 10^3/uL (4.0-10.0)
[2021-11-20 13:53] LABS: ERYTHROCYTE SEDIMENTATION RATE 8 mm/hr (0-30)
[2021-11-20 15:25] LABS: ALBUMIN 3.9 GM/DL (3.2-5.2); ALT/SGPT 28 U/L (12-78); BILIRUBIN,TOTAL 0.3 MG/DL (0.2-1.0); BLOOD UREA NITROGEN 15 MG/DL (7-18); CALCIUM LEVEL 9.1 MG/DL (8.8-10.2); CARBON DIOXIDE LEVEL 30 MEQ/L (21-32); CHLORIDE LEVEL 99 MEQ/L (98-107); CREATININE FOR GFR 0.65 MG/DL (0.55-1.30); GLOMERULAR FILTRATION RATE > 60.0 (>39); GLUCOSE, FASTING 83 MG/DL (70-100); POTASSIUM SERUM 4.9 MEQ/L (3.5-5.1); SODIUM LEVEL 133 MEQ/L (136-145); TOTAL PROTEIN 6.7 GM/DL (6.4-8.2)
[2021-11-20 16:17] LABS: HEPATITIS B SURFACE ANTIGEN NEGATIVE (NEGATIVE)
[2021-11-20 16:44] LABS: HEPATITIS C VIRUS ABY INDEX < 0.0 INDEX (<0.8)
[2021-11-20 16:45] LABS: HEPATITIS B CORE ANTIBODY IGM NEGATIVE (NEGATIVE)
== END ==
LOC: M SFHCRHEU 09:12
PROVIDERS: ATTEND Internal Medicine Rheumatology
DX: L40.50 Arthropathic psoriasis, unspecified (principal); M15.9 Polyosteoarthritis, unspecified; R21 Rash and other nonspecific skin eruption; Z79.899 Other long term (current) drug therapy

== ENCOUNTER → 2021-11-26 | Outpatient (CLI) | payer MEDICARE, OTHER | LOC: M PLAIMG 10:46 | PROVIDERS: ATTEND Internal Medicine Rheumatology | DX: L40.50 Arthropathic psoriasis, unspecified (principal); R21 Rash and other nonspecific skin eruption; Z79.899 Other long term (current) drug therapy; M77.31 Calcaneal spur, right foot; M77.32 Calcaneal spur, left foot; M19.072 Primary osteoarthritis, left ankle and foot; M85.842 Other specified disorders of bone density and structure, left hand; M25.741 Osteophyte, right hand; M85.841 Other specified disorders of bone density and structure, right hand; M25.742 Osteophyte, left hand ==

== ENCOUNTER → 2022-01-30 | Outpatient (CLI) | payer MEDICARE, OTHER | LOC: M RAD 07:12 | PROVIDERS: ATTEND Surgery | DX: R10.11 Right upper quadrant pain (principal) ==

== ENCOUNTER → 2022-02-21 | Outpatient (CLI) | payer MEDICARE, OTHER ==
[2022-02-21 13:47] LABS: BASO % 0.8 % (0.0-1.0); EOS # 0.1 10^3/uL (0.0-0.5); EOS % 1.3 % (0.0-3.0); HEMOGLOBIN 10.6 g/dl (12.0-15.5); LYMPH # 1.1 10^3/uL (1.5-5.0); LYMPH % 27.5 % (24.0-44.0); MEAN CORPUSCULAR HEMOGLOBIN 26.8 pg (27.0-33.0); MEAN CORPUSCULAR HGB CONC 30.3 g/dl (32.0-36.5); MEAN CORPUSCULAR VOLUME 88.6 fl (80.0-96.0); MONO # 0.6 10^3/uL (0.0-0.8); MONO % 15.3 % (2.0-8.0); NEUTROPHILS # 2.1 10^3/uL (1.5-8.5); NEUTROPHILS % 54.8 % (36.0-66.0); PLATELET COUNT, AUTOMATED 261 10^3/uL (150-450); RED BLOOD COUNT 3.95 10^6/uL (4.00-5.40); WHITE BLOOD COUNT 3.9 10^3/uL (4.0-10.0)
[2022-02-21 14:19] LABS: ALBUMIN 3.7 GM/DL (3.2-5.2); ALT/SGPT 28 U/L (12-78); BILIRUBIN,TOTAL 0.3 MG/DL (0.2-1.0); BLOOD UREA NITROGEN 10 MG/DL (7-18); CALCIUM LEVEL 9.1 MG/DL (8.8-10.2); CARBON DIOXIDE LEVEL 29 MEQ/L (21-32); CHLORIDE LEVEL 103 MEQ/L (98-107); CREATININE FOR GFR 0.74 MG/DL (0.55-1.30); GLOMERULAR FILTRATION RATE > 60.0 (>39); GLUCOSE, FASTING 102 MG/DL (70-100); SODIUM LEVEL 137 MEQ/L (136-145); TOTAL PROTEIN 6.1 GM/DL (6.4-8.2)
[2022-02-21 15:34] LABS: ERYTHROCYTE SEDIMENTATION RATE 11 mm/hr (0-30)
== END ==
LOC: M PLALAB 10:21
PROVIDERS: ATTEND Internal Medicine Rheumatology
DX: L40.50 Arthropathic psoriasis, unspecified (principal); Z79.899 Other long term (current) drug therapy; R21 Rash and other nonspecific skin eruption; M15.9 Polyosteoarthritis, unspecified

== ENCOUNTER 2022-03-04 12:25 | Inpatient (IN) | payer MEDICARE, OTHER ==
[2022-03-04] VITALS (12 sets, daily range): BP systolic 131–200; BP diastolic 62–84
[~2022-03-04] VITALS: Ht 165.1 cm; Wt 84.3 kg
[~2022-03-04 12:25] MED LIST changes: -DIVA500T94; +DIVA500T94 PO; -ZOLP5TAB; +ZOLP5TAB PO
[2022-03-04] MEDS ORDERED: ETAN50CA SQ (12:58)
[2022-03-04] MEDS ORDERED: WARF-58 PO (12:58)
[2022-03-04] MEDS ORDERED: WARF-18 PO (12:58)
[2022-03-04 13:45] LABS: BASO % 0.8 % (0.0-1.0); EOS # 0.1 10^3/uL (0.0-0.5); EOS % 2.3 % (0.0-3.0); HEMATOCRIT 30.4 % (36.0-47.0); HEMOGLOBIN 9.5 g/dl (12.0-15.5); LYMPH # 1.1 10^3/uL (1.5-5.0); LYMPH % 29.4 % (24.0-44.0); MEAN CORPUSCULAR HEMOGLOBIN 27.2 pg (27.0-33.0); MEAN CORPUSCULAR HGB CONC 31.3 g/dl (32.0-36.5); MEAN CORPUSCULAR VOLUME 87.1 fl (80.0-96.0); MONO # 0.7 10^3/uL (0.0-0.8); MONO % 17.2 % (2.0-8.0); NEUTROPHILS # 1.9 10^3/uL (1.5-8.5); NEUTROPHILS % 49.8 % (36.0-66.0); PLATELET COUNT, AUTOMATED 199 10^3/uL (150-450); RED BLOOD COUNT 3.49 10^6/uL (4.00-5.40); WHITE BLOOD COUNT 3.8 10^3/uL (4.0-10.0)
[2022-03-04] MEDS ORDERED: ACETAMINOPHEN 325 MG TAB PO ONE (14:10)
[2022-03-04 14:29] LABS: BLOOD UREA NITROGEN 11 MG/DL (9-23); CALCIUM LEVEL 8.6 MG/DL (8.3-10.6); CARBON DIOXIDE LEVEL 28 MMOL/L (20-31); CHLORIDE LEVEL 102 MMOL/L (98-107); CREATININE FOR GFR 0.62 MG/DL (0.55-1.30); GLOMERULAR FILTRATION RATE > 60.0 (>39); GLUCOSE, FASTING 89 MG/DL (74-106); POTASSIUM SERUM 4.4 MMOL/L (3.5-5.1); SODIUM LEVEL 137 MMOL/L (136-145)
[2022-03-04 14:30] LABS: RSV AMPLIFICATION NEGATIVE (NEGATIVE)
[2022-03-04] MEDS ORDERED: ISOVUE-370 76% 100ML VIAL As Ordered ONE (15:14)
[2022-03-04 16:14] LABS: ERYTHROCYTE SEDIMENTATION RATE 14 mm/hr (0-30)
[2022-03-04 16:51] LABS: INR 3.02; PROTHROMBIN TIME 31.8 SECONDS (12.5-14.5)
[2022-03-04 16:58] LABS: CK-MB VALUE MASS < 1.0 NG/ML (<3.6); CPK CREATINE PHOSPHOKINASE 64 U/L (34-145); MB/CK RELATIVE INDEX 1.56 (< OR =4)
[2022-03-04] MEDS ORDERED: WARFARIN SOD 2.5MG TAB PO SCH (17:00)
[2022-03-04] MEDS ORDERED: WARFARIN SOD 5MG TAB PO SCH ×2 (17:00)
[2022-03-04] MEDS ORDERED: hydrALAZINE 20MG/ML 1ML VIAL (J0360 PER 20MG) IV PRN (18:20)
[2022-03-04] MEDS ORDERED: OCUVTAB4 PO (19:11)
[2022-03-04] MEDS ORDERED: WARF-23 PO ×2 (19:14)
[2022-03-04] MEDS ORDERED: LOSA100T45 PO (19:15)
[2022-03-04] MEDS ORDERED: FLON1SPR (19:17)
[2022-03-04] MEDS ORDERED: HYDR-3910 PO (19:17)
[2022-03-04] MEDS ORDERED: LEVOTAB10 PO (19:18)
[2022-03-04] MEDS ORDERED: HOME MED LIST COMPLETE! XX SCH (19:20)
[2022-03-04 20:49] LABS: HEMOGLOBIN A1c 5.3 % (4.0-6.0)
[2022-03-04] MEDS ORDERED: zolPIDEM TARTRATE 5 MG TAB PO SCH ×2 (21:00)
[2022-03-04 21:28] LABS: CHOLESTEROL LEVEL 219 MG/DL (<200); CHOLESTEROL RISK RATIO 2.36 (<5); HDL CHOLESTEROL 92.6 MG/DL (>40); NON-HDL-C 126 MG/DL; TRIGLYCERIDES LEVEL 62 MG/DL (<150)
[2022-03-04] MEDS: **hydrALAZINE HCL** 25 MG TAB PO SCH (23:08)
[2022-03-04] MEDS: traZODone 100 MG TAB PO SCH (23:08)
[2022-03-04] MEDS: LOSARTAN 50MG TABLET PO SCH (23:08)
[2022-03-04] MEDS: DIVALPROEX 500 MG TAB PO SCH (23:08)
[2022-03-04] MEDS: GABAPENTIN 300 MG CAP PO SCH (23:09)
[2022-03-05 06:21] LABS: HEMATOCRIT 32.6 % (36.0-47.0); HEMOGLOBIN 10.2 g/dl (12.0-15.5); MEAN CORPUSCULAR HEMOGLOBIN 27.5 pg (27.0-33.0); MEAN CORPUSCULAR HGB CONC 31.3 g/dl (32.0-36.5); MEAN CORPUSCULAR VOLUME 87.9 fl (80.0-96.0); PLATELET COUNT, AUTOMATED 208 10^3/uL (150-450); RED BLOOD COUNT 3.71 10^6/uL (4.00-5.40); WHITE BLOOD COUNT 3.4 10^3/uL (4.0-10.0)
[2022-03-05 06:44] LABS: INR 2.55; PARTIAL THROMBOPLASTIN TIME 43.3 SECONDS (24.8-34.2); PROTHROMBIN TIME 27.8 SECONDS (12.5-14.5)
[2022-03-05 07:03] LABS: ALBUMIN 3.4 G/DL (3.2-5.2); ALT/SGPT 20 U/L (7.0-40); BILIRUBIN,TOTAL 0.4 MG/DL (0.3-1.2); BLOOD UREA NITROGEN 11 MG/DL (9-23); CALCIUM LEVEL 8.6 MG/DL (8.3-10.6); CARBON DIOXIDE LEVEL 28 MMOL/L (20-31); CHLORIDE LEVEL 102 MMOL/L (98-107); CREATININE FOR GFR 0.64 MG/DL (0.55-1.30); GLOMERULAR FILTRATION RATE > 60.0 (>39); GLUCOSE, FASTING 92 MG/DL (74-106); POTASSIUM SERUM 4.4 MMOL/L (3.5-5.1); SODIUM LEVEL 138 MMOL/L (136-145); TOTAL PROTEIN 5.6 G/DL
[2022-03-05] MEDS: SERTRALINE HCL 25 MG TABLET PO SCH (08:56)
[2022-03-05] MEDS: **hydrALAZINE HCL** 25 MG TAB PO SCH ×4 (08:58→21:58)
[2022-03-05] MEDS ORDERED: ONDANSETRON 4MG 2ML VIAL IV ONE (11:40)
[2022-03-05] MEDS ORDERED: diphenhydrAMINE 50MG/ML VIAL IV ONE (11:40)
[2022-03-05] MEDS ORDERED: hydrALAZINE 20MG/ML 1ML VIAL (J0360 PER 20MG) IV PRN (11:55)
[2022-03-05] MEDS: WARFARIN SOD 5MG TAB PO SCH (18:48)
[2022-03-05] MEDS: zolPIDEM TARTRATE 5 MG TAB PO SCH (21:00)
[2022-03-05] MEDS: DIVALPROEX 500 MG TAB PO SCH (21:00)
[2022-03-05 21:56] VITALS: BP 162/72
[2022-03-05] MEDS: LOSARTAN 50MG TABLET PO SCH (21:58)
[2022-03-05] MEDS: traZODone 100 MG TAB PO SCH (21:59)
[2022-03-05] MEDS: GABAPENTIN 300 MG CAP PO SCH (21:59)
[2022-03-05 23:02] VITALS: BP 136/63
[2022-03-05] MEDS: SUMAtriptan SUCCINATE 25 MG TAB PO PRN (23:43)
[2022-03-06] VITALS (8 sets, daily range): BP systolic 115–146; BP diastolic 54–73
[2022-03-06 06:11] LABS: HEMATOCRIT 32.4 % (36.0-47.0); HEMOGLOBIN 10.1 g/dl (12.0-15.5); MEAN CORPUSCULAR HGB CONC 31.2 g/dl (32.0-36.5); MEAN CORPUSCULAR VOLUME 86.6 fl (80.0-96.0); PLATELET COUNT, AUTOMATED 214 10^3/uL (150-450); RED BLOOD COUNT 3.74 10^6/uL (4.00-5.40); WHITE BLOOD COUNT 4.9 10^3/uL (4.0-10.0)
[2022-03-06 06:29] LABS: INR 2.9; PARTIAL THROMBOPLASTIN TIME 43.8 SECONDS (24.8-34.2); PROTHROMBIN TIME 30.8 SECONDS (12.5-14.5)
[2022-03-06 06:38] LABS: ALBUMIN 3.3 G/DL (3.2-5.2); ALT/SGPT 18 U/L (7.0-40); BILIRUBIN,TOTAL 0.3 MG/DL (0.3-1.2); BLOOD UREA NITROGEN 14 MG/DL (9-23); CALCIUM LEVEL 8.4 MG/DL (8.3-10.6); CARBON DIOXIDE LEVEL 30 MMOL/L (20-31); CHLORIDE LEVEL 97 MMOL/L (98-107); CREATININE FOR GFR 0.78 MG/DL (0.55-1.30); GLOMERULAR FILTRATION RATE > 60.0 (>39); GLUCOSE, FASTING 87 MG/DL (74-106); POTASSIUM SERUM 4.7 MMOL/L (3.5-5.1); SODIUM LEVEL 134 MMOL/L (136-145); TOTAL PROTEIN 5.5 G/DL (5.7-8.2)
[2022-03-06] MEDS: **hydrALAZINE HCL** 25 MG TAB PO SCH ×4 (08:14→20:17)
[2022-03-06] MEDS: SERTRALINE HCL 25 MG TABLET PO SCH (08:14)
[2022-03-06] MEDS ORDERED: PYRIDOSTIGMINE 60MG TABLET PO ONE (12:00)
[2022-03-06] MEDS: SUMAtriptan SUCCINATE 25 MG TAB PO PRN (15:48)
[2022-03-06] MEDS: WARFARIN SOD 5MG TAB PO SCH (17:27)
[2022-03-06] MEDS ORDERED: AMLO1TAB25 PO (19:30)
[2022-03-06] MEDS: LOSARTAN 50MG TABLET PO SCH (20:17)
[2022-03-06] MEDS: traZODone 100 MG TAB PO SCH (20:17)
[2022-03-06] MEDS: zolPIDEM TARTRATE 5 MG TAB PO SCH (20:17)
[2022-03-06] MEDS: DIVALPROEX 500 MG TAB PO SCH (20:17)
[2022-03-06] MEDS: GABAPENTIN 300 MG CAP PO SCH (20:17)
== END 2022-03-06 20:42 | disposition home or self-care (01) | DRG 103 ==
LOC: M ED 12:25 → M ED INP 17:44 → ENRESERV 03-05 19:37 → M PCU 03-05 21:44
PROVIDERS: ADMIT Internal Medicine; ATTEND Internal Medicine
DX: G43.909 Migraine, unspecified, not intractable, without status migrainosus (principal); I16.1 Hypertensive emergency; G95.20 Unspecified cord compression; M06.9 Rheumatoid arthritis, unspecified; I10 Essential (primary) hypertension; H53.2 Diplopia; E53.8 Deficiency of other specified B group vitamins; R47.81 Slurred speech; G47.00 Insomnia, unspecified; R20.2 Paresthesia of skin; R13.10 Dysphagia, unspecified; G70.00 Myasthenia gravis without (acute) exacerbation; M54.81 Occipital neuralgia; F41.9 Anxiety disorder, unspecified; F32.A Depression, unspecified; Z79.01 Long term (current) use of anticoagulants; Z79.899 Other long term (current) drug therapy; Z88.8 Allergy status to other drugs, medicaments and biological substances

== ENCOUNTER → 2022-04-30 | Outpatient (CLI) | payer MEDICARE, OTHER ==
[~2022-04-30] MED LIST changes: +AMLO1TAB25 PO; +DILT240C47 PO; +ENOX40IN3 SC; +ETAN50CA SQ; +FLON1SPR NARES; +HYDR-3910 PO; +PANT40TA29 PO; +PROA1AER2 PO; +SYST1SOL OU; +VITA100T59 PO; +WARF-18 PO; +WARF-58 PO
== END ==
LOC: M RAD 08:38
PROVIDERS: ATTEND Surgery
DX: R10.11 Right upper quadrant pain (principal)

== ENCOUNTER → 2022-05-08 | Outpatient (CLI) | payer MEDICARE, OTHER ==
[~2022-05-08] MED LIST changes: -DILT240C47 PO; -ENOX40IN3 SC; +FLON1SPR; -FLON1SPR NARES; -PANT40TA29 PO; -PROA1AER2 PO; -SYST1SOL OU; -VITA100T59 PO
[2022-05-08 15:24] LABS: INR 2.26; PROTHROMBIN TIME 25.3 SECONDS (12.5-14.5)
== END ==
LOC: M PLALAB 12:00
PROVIDERS: ATTEND Internal Medicine Hematology
DX: Z79.01 Long term (current) use of anticoagulants (principal)

== ENCOUNTER → 2022-05-12 | Outpatient (CLI) | payer MEDICARE, OTHER ==
[~2022-05-12] MED LIST changes: +DILT240C47 PO; +ENOX40IN3 SC; -FLON1SPR; +FLON1SPR NARES; +PANT40TA29 PO; +PROA1AER2 PO; +SYST1SOL OU; +VITA100T59 PO
[2022-05-12 15:28] LABS: BASO % 0.8 % (0.0-1.0); EOS # 0.1 10^3/uL (0.0-0.5); EOS % 1.3 % (0.0-3.0); HEMATOCRIT 31.8 % (36.0-47.0); LYMPH # 1.2 10^3/uL (1.5-5.0); LYMPH % 32.7 % (24.0-44.0); MEAN CORPUSCULAR HEMOGLOBIN 27.5 pg (27.0-33.0); MEAN CORPUSCULAR HGB CONC 31.4 g/dl (32.0-36.5); MEAN CORPUSCULAR VOLUME 87.6 fl (80.0-96.0); MONO # 0.6 10^3/uL (0.0-0.8); MONO % 14.7 % (2.0-8.0); NEUTROPHILS # 1.9 10^3/uL (1.5-8.5); PLATELET COUNT, AUTOMATED 245 10^3/uL (150-450); RED BLOOD COUNT 3.63 10^6/uL (4.00-5.40); WHITE BLOOD COUNT 3.7 10^3/uL (4.0-10.0)
[2022-05-12 15:56] LABS: C REACTIVE PROTEIN QUANTITATIV < 0.40 MG/DL (<1.0); ERYTHROCYTE SEDIMENTATION RATE 4 mm/hr (0-30)
[2022-05-12 15:58] LABS: ALBUMIN 3.7 G/DL (3.2-5.2); ALKALINE PHOSPHATASE 47 U/L (46-116); ALT/SGPT 18 U/L (7.0-40); AST/SGOT 15 U/L (<34); BILIRUBIN,TOTAL 0.4 MG/DL (0.3-1.2); BLOOD UREA NITROGEN 14 MG/DL (9-23); CALCIUM LEVEL 8.8 MG/DL (8.3-10.6); CARBON DIOXIDE LEVEL 29 MMOL/L (20-31); CHLORIDE LEVEL 98 MMOL/L (98-107); CREATININE FOR GFR 0.66 MG/DL (0.55-1.30); GLOMERULAR FILTRATION RATE > 60.0 (>39); GLUCOSE, FASTING 74 MG/DL (74-106); SODIUM LEVEL 132 MMOL/L (136-145); TOTAL PROTEIN 6.2 G/DL (5.7-8.2)
== END ==
LOC: M PLALAB 13:47
PROVIDERS: ATTEND Internal Medicine Rheumatology
DX: L40.50 Arthropathic psoriasis, unspecified (principal); Z79.899 Other long term (current) drug therapy; M15.9 Polyosteoarthritis, unspecified; R21 Rash and other nonspecific skin eruption

== ENCOUNTER → 2022-05-12 | Outpatient (CLI) | payer MEDICARE, OTHER ==
[2022-05-12 15:18] LABS: HEMATOCRIT 31.7 % (36.0-47.0); HEMOGLOBIN 9.9 g/dl (12.0-15.5); MEAN CORPUSCULAR HEMOGLOBIN 27.3 pg (27.0-33.0); MEAN CORPUSCULAR HGB CONC 31.2 g/dl (32.0-36.5); MEAN CORPUSCULAR VOLUME 87.6 fl (80.0-96.0); PLATELET COUNT, AUTOMATED 250 10^3/uL (150-450); RED BLOOD COUNT 3.62 10^6/uL (4.00-5.40); WHITE BLOOD COUNT 3.7 10^3/uL (4.0-10.0)
[2022-05-12 15:56] LABS: IRON (FE) 50 UG/DL (50-170)
[2022-05-12 15:57] LABS: TOTAL IRON BINDING CAPACITY 384 UG/DL (250-425)
[2022-05-12 15:59] LABS: FERRITIN 4.7 NG/ML (7.3-270.7)
[2022-05-12 16:11] LABS: VITAMIN B12 LEVEL > 2000 PG/ML (211-911)
== END ==
LOC: M PLALAB 13:45
PROVIDERS: ATTEND Internal Medicine Hematology
DX: D50.0 Iron deficiency anemia secondary to blood loss (chronic) (principal); D72.819 Decreased white blood cell count, unspecified; L40.50 Arthropathic psoriasis, unspecified; Z79.899 Other long term (current) drug therapy; M15.9 Polyosteoarthritis, unspecified; R21 Rash and other nonspecific skin eruption

== ENCOUNTER 2022-05-16 07:22 | Outpatient (CLI) | payer MEDICARE, OTHER ==
[~2022-05-16] VITALS: Ht 165.1 cm; Wt 80.3 kg
[~2022-05-16 07:22] MED LIST changes: +ALBUTEROL SULFATE 2.5MG/0.5ML INH NEB SOLN INH PRN; -DILT240C47 PO; -ENOX40IN3 SC; +EPINEPHrine INJ 1 MG/ML 1ML AMP IM PRN; +FLON1SPR; -FLON1SPR NARES; -PANT40TA29 PO; -PROA1AER2 PO; -SYST1SOL OU; -VITA100T59 PO; +diphenhydrAMINE 50MG/ML VIAL IV PRN; +methylPREDNISolone 125MG 2ML VIAL IV PRN
[2022-05-16] MEDS ORDERED: NS 1,000 ML IV SCH (07:30)
[2022-05-16] MEDS ORDERED: FERRIC CARBOXYMALTOSE INJ 750 MG in NS 250 ML (>50kg) IV ONE ×3 (07:30)
[2022-05-16 07:35] VITALS: BP 160/72
[2022-05-16 08:46] LABS: INR 1.83; PROTHROMBIN TIME 21.5 SECONDS (12.5-14.5)
[2022-05-16 09:25] VITALS: BP 148/77
== END 2022-05-16 09:25 | disposition home or self-care (01) ==
LOC: M INFU 07:22
PROVIDERS: ATTEND Internal Medicine Hematology
DX: D50.9 Iron deficiency anemia, unspecified (principal); Z79.01 Long term (current) use of anticoagulants; Z88.8 Allergy status to other drugs, medicaments and biological substances
CPT/HCPCS: 36592; 85610; 96365; J1439

== ENCOUNTER → 2022-05-28 | Outpatient (CLI) | payer MEDICARE, OTHER ==
[~2022-05-28] MED LIST changes: -ALBUTEROL SULFATE 2.5MG/0.5ML INH NEB SOLN INH PRN; -EPINEPHrine INJ 1 MG/ML 1ML AMP IM PRN; -diphenhydrAMINE 50MG/ML VIAL IV PRN; -methylPREDNISolone 125MG 2ML VIAL IV PRN
[2022-05-28 15:31] LABS: INR 3.16; PROTHROMBIN TIME 32.9 SECONDS (12.5-14.5)
== END ==
LOC: M PLALAB 12:30
PROVIDERS: ATTEND Internal Medicine Hematology
DX: Z79.01 Long term (current) use of anticoagulants (principal)

== ENCOUNTER → 2022-06-09 | Outpatient (CLI) | payer MEDICARE, OTHER ==
[~2022-06-09] MED LIST changes: +PROA1AER2 IN; +SYST1SOL OU
[2022-06-09 16:11] LABS: INR 2.05; PROTHROMBIN TIME 23.5 SECONDS (12.5-14.5)
== END ==
LOC: M PLALAB 13:38
PROVIDERS: ATTEND Internal Medicine Hematology
DX: Z79.01 Long term (current) use of anticoagulants (principal)

== ENCOUNTER → 2022-06-16 | Outpatient (CLI) | payer MEDICARE, OTHER | LOC: M LABSMTC 07:48 | PROVIDERS: ATTEND Anesthesiology | DX: Z01.812 Encounter for preprocedural laboratory examination (principal) ==

== ENCOUNTER 2022-06-20 08:20 | Observation (INO) | payer MEDICARE, OTHER ==
[~2022-06-20] VITALS: Ht 165.1 cm; Wt 83.7 kg
[~2022-06-20 08:20] MED LIST changes: +AMPICILLIN SOD/SULBACTAM SOD 3 GM in D5W MINI-BAG PLUS 100 ML IV ONE; +CelecoXIB 400 MG CAP PO ONE; -FLON1SPR; +FLON1SPR NARES; -PROA1AER2 IN; +PROA1AER2 PO
[2022-06-20] MEDS ORDERED: LR 1,000 ML IV SCH ×2 (08:35→11:40)
[2022-06-20] MEDS ORDERED: ONDANSETRON 4MG 2ML VIAL As Ordered ONE (09:30)
[2022-06-20] MEDS ORDERED: SUGAMMADEX SODIUM 500 MG/5 ML VIAL (BRIDION) As Ordered ONE (09:30)
[2022-06-20] MEDS ORDERED: ROCURONIUM BROMIDE 50MG/5ML VIAL As Ordered ONE (09:30)
[2022-06-20] MEDS ORDERED: propofoL 200 MG/20 ML VIAL As Ordered ONE (09:30)
[2022-06-20] MEDS ORDERED: KETOROLAC 60MG 2ML VIAL As Ordered ONE (09:30)
[2022-06-20] MEDS ORDERED: ACETAMINOPHEN 1000MG 100ML IV BAG As Ordered ONE (09:30)
[2022-06-20] MEDS ORDERED: LIDOCAINE 2% 100MG/5ML SDV (FOR ANES.) As Ordered ONE (09:30)
[2022-06-20] MEDS ORDERED: fentaNYL 100 MCG/2 ML INJECTION As Ordered ONE (09:31)
[2022-06-20] MEDS ORDERED: MIDAZOLAM INJ 2MG/2ML VIAL As Ordered ONE (09:31)
[2022-06-20] MEDS ORDERED: INDOCYANINE GREEN 25MG VIAL (IC-GREEN) As Ordered ONE (09:35)
[2022-06-20] MEDS ORDERED: BUPIVACAINE HCL 0.25% 30ML VIAL As Ordered ONE (09:35)
[2022-06-20] MEDS ORDERED: LIDOCAINE 1% SDV 30ML VIAL As Ordered ONE (09:35)
[2022-06-20 09:36] LABS: INR 0.98; PROTHROMBIN TIME 13.2 SECONDS (12.5-14.5)
[2022-06-20] MEDS ORDERED: oxyCODONE 5MG TAB PO PRN (11:40)
[2022-06-20] MEDS ORDERED: ONDANSETRON 4MG 2ML VIAL IV PRN (11:40)
[2022-06-20] MEDS: fentaNYL 100 MCG/2 ML INJECTION IV PRN ×2 (12:02→12:10)
[2022-06-20] MEDS ORDERED: MORPHINE 2 MG/ML 1ML VIAL As Ordered ONE (12:22)
[2022-06-20] MEDS ORDERED: MORPHINE 2 MG/ML 1ML VIAL IV ONE (12:25)
[2022-06-20] MEDS ORDERED: NITROGLYCERIN 0.4MG SUBL TABLET SL STA (12:46)
[2022-06-20] MEDS ORDERED: FLUTICASONE PROP 0.05% NASAL SPRAY 16 GM (FLONASE) PRN (12:50)
[2022-06-20] MEDS ORDERED: ACETAMINOPHEN 650MG ER TAB (TYLENOL ARTHRITIS) PO PRN (12:50)
[2022-06-20] MEDS ORDERED: NITROGLYCERIN 0.4MG SUBL TABLET SL PRN (12:50)
[2022-06-20 13:21] LABS: BASO % 0.6 % (0.0-1.0); EOS % 0.3 % (0.0-3.0); HEMATOCRIT 34.8 % (36.0-47.0); HEMOGLOBIN 11.3 g/dl (12.0-15.5); LYMPH # 0.4 10^3/uL (1.5-5.0); LYMPH % 12.9 % (24.0-44.0); MEAN CORPUSCULAR HEMOGLOBIN 29.1 pg (27.0-33.0); MEAN CORPUSCULAR HGB CONC 32.5 g/dl (32.0-36.5); MEAN CORPUSCULAR VOLUME 89.7 fl (80.0-96.0); MONO # 0.1 10^3/uL (0.0-0.8); NEUTROPHILS # 2.9 10^3/uL (1.5-8.5); NEUTROPHILS % 83.9 % (36.0-66.0); PLATELET COUNT, AUTOMATED 186 10^3/uL (150-450); RED BLOOD COUNT 3.88 10^6/uL (4.00-5.40); WHITE BLOOD COUNT 3.4 10^3/uL (4.0-10.0)
[2022-06-20 13:52] LABS: INR 0.98; PROTHROMBIN TIME 13.2 SECONDS (12.5-14.5)
[2022-06-20 13:54] LABS: ALBUMIN 3.8 G/DL (3.2-5.2); ALKALINE PHOSPHATASE 47 U/L (46-116); ALT/SGPT 23 U/L (7.0-40); AST/SGOT 15 U/L (<34); BILIRUBIN,TOTAL 0.4 MG/DL (0.3-1.2); BLOOD UREA NITROGEN 13 MG/DL (9-23); CALCIUM LEVEL 8.7 MG/DL (8.3-10.6); CARBON DIOXIDE LEVEL 30 MMOL/L (20-31); CHLORIDE LEVEL 102 MMOL/L (98-107); CREATININE FOR GFR 0.71 MG/DL (0.55-1.30); GLOMERULAR FILTRATION RATE > 60.0 (>39); GLUCOSE, FASTING 133 MG/DL (74-106); POTASSIUM SERUM 4.3 MMOL/L (3.5-5.1); SODIUM LEVEL 137 MMOL/L (136-145)
[2022-06-20] MEDS ORDERED: LORazepam 1 MG TAB PO STA (13:56)
[2022-06-20 15:00] VITALS: BP 180/78
[2022-06-20] MEDS: **hydrALAZINE HCL** 25 MG TAB PO SCH ×3 (15:00→22:29)
[2022-06-20] MEDS ORDERED: LOSARTAN 50MG TABLET PO ONE (15:00)
[2022-06-20] MEDS: NORCO, ANEXSIA 5/325MG TABLET (HYDROcodone/ACETAMINOPHEN) PO PRN ×2 (15:34→19:55)
[2022-06-20 16:00] VITALS: BP 169/72
[2022-06-20] MEDS ORDERED: DILT240C47 PO (16:47)
[2022-06-20] MEDS ORDERED: PANT40TA29 PO (16:47)
[2022-06-20] MEDS ORDERED: AMLO1TAB25 PO (16:47)
[2022-06-20] MEDS ORDERED: VITA100T59 PO (16:48)
[2022-06-20] MEDS ORDERED: HOME MED LIST COMPLETE! XX SCH (16:50)
[2022-06-20 17:00] VITALS: BP 186/77
[2022-06-20 18:00] VITALS: BP 132/68
[2022-06-20] MEDS: KETOROLAC 30 MG/ML 1ML VIAL IV SCH (18:00)
[2022-06-20] MEDS ORDERED: MORPHINE 4 MG/ML 1ML VIAL IV ONE (18:30)
[2022-06-20 20:21] VITALS: BP 149/67
[2022-06-20] MEDS ORDERED: zolPIDEM TARTRATE 5 MG TAB PO SCH (21:00)
[2022-06-20] MEDS ORDERED: LOSARTAN 50MG TABLET PO SCH (21:00)
[2022-06-20] MEDS ORDERED: VITAMIN D 1,000 INTERNATIONAL UNITS TABLET PO SCH (21:00)
[2022-06-20] MEDS ORDERED: traZODone 100 MG TAB PO SCH (21:00)
[2022-06-20] MEDS ORDERED: DIVALPROEX 500 MG TAB PO SCH (21:00)
[2022-06-21 00:16] VITALS: BP 130/60
[2022-06-21] MEDS: KETOROLAC 30 MG/ML 1ML VIAL IV SCH ×3 (00:54→12:23)
[2022-06-21 04:10] VITALS: BP 129/62
[2022-06-21 04:56] LABS: HEMATOCRIT 30.8 % (36.0-47.0); HEMOGLOBIN 9.8 g/dl (12.0-15.5); MEAN CORPUSCULAR HEMOGLOBIN 28.6 pg (27.0-33.0); MEAN CORPUSCULAR HGB CONC 31.8 g/dl (32.0-36.5); MEAN CORPUSCULAR VOLUME 89.8 fl (80.0-96.0); PLATELET COUNT, AUTOMATED 199 10^3/uL (150-450); RED BLOOD COUNT 3.43 10^6/uL (4.00-5.40); WHITE BLOOD COUNT 8.9 10^3/uL (4.0-10.0)
[2022-06-21 05:06] LABS: INR 0.96
[2022-06-21 05:22] LABS: ALBUMIN 3.2 G/DL (3.2-5.2); ALKALINE PHOSPHATASE 41 U/L (46-116); ALT/SGPT 22 U/L (7.0-40); AST/SGOT 12 U/L (<34); BILIRUBIN,TOTAL 0.3 MG/DL (0.3-1.2); BLOOD UREA NITROGEN 16 MG/DL (9-23); CALCIUM LEVEL 8.4 MG/DL (8.3-10.6); CARBON DIOXIDE LEVEL 27 MMOL/L (20-31); CHLORIDE LEVEL 100 MMOL/L (98-107); CREATININE FOR GFR 0.59 MG/DL (0.55-1.30); GLOMERULAR FILTRATION RATE > 60.0 (>39); GLUCOSE, FASTING 122 MG/DL (74-106); POTASSIUM SERUM 4.7 MMOL/L (3.5-5.1); SODIUM LEVEL 134 MMOL/L (136-145); TOTAL PROTEIN 5.3 G/DL (5.7-8.2)
[2022-06-21 07:47] VITALS: BP 154/70
[2022-06-21] MEDS ORDERED: ENOXAPARIN 80MG/0.8ML SYRINGE (J1650 PER 10MG) SC SCH ×2 (09:00)
[2022-06-21] MEDS: NORCO, ANEXSIA 5/325MG TABLET (HYDROcodone/ACETAMINOPHEN) PO PRN ×2 (09:16→14:09)
[2022-06-21] MEDS: **hydrALAZINE HCL** 25 MG TAB PO SCH ×2 (09:17→12:24)
[2022-06-21 11:07] LABS: HEMATOCRIT 34.6 % (36.0-47.0); MEAN CORPUSCULAR HEMOGLOBIN 28.5 pg (27.0-33.0); MEAN CORPUSCULAR HGB CONC 31.8 g/dl (32.0-36.5); MEAN CORPUSCULAR VOLUME 89.6 fl (80.0-96.0); PLATELET COUNT, AUTOMATED 208 10^3/uL (150-450); RED BLOOD COUNT 3.86 10^6/uL (4.00-5.40); WHITE BLOOD COUNT 8.7 10^3/uL (4.0-10.0)
[2022-06-21 12:00] VITALS: BP 142/63
[2022-06-21 12:24] VITALS: BP 142/63
[2022-06-21 13:06] LABS: HEMATOCRIT 31.7 % (36.0-47.0); MEAN CORPUSCULAR HEMOGLOBIN 28.4 pg (27.0-33.0); MEAN CORPUSCULAR HGB CONC 31.5 g/dl (32.0-36.5); MEAN CORPUSCULAR VOLUME 90.1 fl (80.0-96.0); PLATELET COUNT, AUTOMATED 176 10^3/uL (150-450); RED BLOOD COUNT 3.52 10^6/uL (4.00-5.40); WHITE BLOOD COUNT 7.4 10^3/uL (4.0-10.0)
[2022-06-21] MEDS ORDERED: ENOX40IN3 SC (13:28)
[2022-06-21] MEDS ORDERED: LOSARTAN 50MG TABLET PO SCH (21:00)
== END 2022-06-21 15:55 | disposition home or self-care (01) ==
LOC: M SDC 08:20 → M MS5PR 08:21 → M PCU 13:42
PROVIDERS: ADMIT Student in an Organized Health Care Education/Training Program; ATTEND Surgery
DX: R07.89 Other chest pain (principal); K81.1 Chronic cholecystitis; I10 Essential (primary) hypertension; K21.9 Gastro-esophageal reflux disease without esophagitis; E78.5 Hyperlipidemia, unspecified; I35.0 Nonrheumatic aortic (valve) stenosis; Z95.2 Presence of prosthetic heart valve; G43.909 Migraine, unspecified, not intractable, without status migrainosus; J45.909 Unspecified asthma, uncomplicated; Z79.01 Long term (current) use of anticoagulants; Z79.899 Other long term (current) drug therapy; G31.84 Mild cognitive impairment of uncertain or unknown etiology; F43.10 Post-traumatic stress disorder, unspecified; Z87.820 Personal history of traumatic brain injury; F41.9 Anxiety disorder, unspecified; F32.A Depression, unspecified; F06.30 Mood disorder due to known physiological condition, unspecified; Z98.84 Bariatric surgery status
CPT/HCPCS: 36415; 47563; 71045; 80053; 83605; 83880; 84484; 85025; 85027; 85610; 88304; 93005; 96372; 96374; 96375; 96376; 97161; G0378; J0131; J0295; J1100; J1650; J1885; J2250; J2270; J2405; J3010; Q9968; S2900

== ENCOUNTER → 2022-06-24 | Outpatient (CLI) | payer MEDICARE, OTHER ==
[~2022-06-24] MED LIST changes: -AMPICILLIN SOD/SULBACTAM SOD 3 GM in D5W MINI-BAG PLUS 100 ML IV ONE; -CelecoXIB 400 MG CAP PO ONE; +DILT240C47 PO; +ENOX40IN3 SC; +PANT40TA29 PO; +VITA100T59 PO
[2022-06-24 16:53] LABS: INR 0.99; PROTHROMBIN TIME 13.3 SECONDS (12.5-14.5)
== END ==
LOC: M PLALAB 12:56
PROVIDERS: ATTEND Internal Medicine Hematology
DX: Z79.01 Long term (current) use of anticoagulants (principal)

== ENCOUNTER → 2022-07-08 | Outpatient (CLI) | payer MEDICARE, OTHER ==
[2022-07-08 10:56] LABS: HEMATOCRIT 39.6 % (36.0-47.0); HEMOGLOBIN 12.4 g/dl (12.0-15.5); MEAN CORPUSCULAR HEMOGLOBIN 29.1 pg (27.0-33.0); MEAN CORPUSCULAR HGB CONC 31.3 g/dl (32.0-36.5); PLATELET COUNT, AUTOMATED 239 10^3/uL (150-450); RED BLOOD COUNT 4.26 10^6/uL (4.00-5.40); WHITE BLOOD COUNT 5.3 10^3/uL (4.0-10.0)
[2022-07-08 11:26] LABS: ALBUMIN 4.1 G/DL (3.2-5.2); ALKALINE PHOSPHATASE 53 U/L (46-116); ALT/SGPT 16 U/L (7.0-40); AST/SGOT 16 U/L (<34); BILIRUBIN,TOTAL 0.4 MG/DL (0.3-1.2); BLOOD UREA NITROGEN 17 MG/DL (9-23); CALCIUM LEVEL 9.4 MG/DL (8.3-10.6); CARBON DIOXIDE LEVEL 29 MMOL/L (20-31); CHLORIDE LEVEL 104 MMOL/L (98-107); CREATININE FOR GFR 0.78 MG/DL (0.55-1.30); GLOMERULAR FILTRATION RATE > 60.0 (>39); GLUCOSE, FASTING 93 MG/DL (74-106); POTASSIUM SERUM 4.2 MMOL/L (3.5-5.1); SODIUM LEVEL 141 MMOL/L (136-145); TOTAL PROTEIN 6.4 G/DL (5.7-8.2)
== END ==
LOC: M PLALAB 08:39
PROVIDERS: ATTEND Physician Assistant
DX: K82.8 Other specified diseases of gallbladder (principal)

== ENCOUNTER → 2022-07-08 | Outpatient (CLI) | payer MEDICARE, OTHER ==
[2022-07-08 10:57] LABS: BASO # 0.1 10^3/uL (0.0-0.2); BASO % 1.1 % (0.0-1.0); EOS # 0.6 10^3/uL (0.0-0.5); EOS % 10.5 % (0.0-3.0); HEMATOCRIT 39.2 % (36.0-47.0); HEMOGLOBIN 12.4 g/dl (12.0-15.5); LYMPH # 1.3 10^3/uL (1.5-5.0); LYMPH % 23.4 % (24.0-44.0); MEAN CORPUSCULAR HEMOGLOBIN 29.2 pg (27.0-33.0); MEAN CORPUSCULAR HGB CONC 31.6 g/dl (32.0-36.5); MEAN CORPUSCULAR VOLUME 92.5 fl (80.0-96.0); MONO # 0.4 10^3/uL (0.0-0.8); MONO % 7.4 % (2.0-8.0); NEUTROPHILS # 3.1 10^3/uL (1.5-8.5); NEUTROPHILS % 57.4 % (36.0-66.0); PLATELET COUNT, AUTOMATED 243 10^3/uL (150-450); RED BLOOD COUNT 4.24 10^6/uL (4.00-5.40); WHITE BLOOD COUNT 5.4 10^3/uL (4.0-10.0)
[2022-07-08 11:26] LABS: ALBUMIN 4.1 G/DL (3.2-5.2); ALKALINE PHOSPHATASE 54 U/L (46-116); ALT/SGPT 17 U/L (7.0-40); AST/SGOT 13 U/L (<34); BILIRUBIN,TOTAL 0.4 MG/DL (0.3-1.2); BLOOD UREA NITROGEN 17 MG/DL (9-23); CALCIUM LEVEL 9.3 MG/DL (8.3-10.6); CARBON DIOXIDE LEVEL 28 MMOL/L (20-31); CHLORIDE LEVEL 104 MMOL/L (98-107); CREATININE FOR GFR 0.78 MG/DL (0.55-1.30); FERRITIN 44.6 NG/ML (7.3-270.7); GLOMERULAR FILTRATION RATE > 60.0 (>39); GLUCOSE, FASTING 91 MG/DL (74-106); POTASSIUM SERUM 4.2 MMOL/L (3.5-5.1); SODIUM LEVEL 140 MMOL/L (136-145); TOTAL PROTEIN 6.4 G/DL (5.7-8.2)
== END ==
LOC: M PLALAB 08:41
PROVIDERS: ATTEND Internal Medicine Hematology
DX: L40.50 Arthropathic psoriasis, unspecified (principal); M15.9 Polyosteoarthritis, unspecified; R21 Rash and other nonspecific skin eruption; Z79.01 Long term (current) use of anticoagulants; Z79.899 Other long term (current) drug therapy

== ENCOUNTER → 2022-07-29 | Outpatient (CLI) | payer MEDICARE, OTHER ==
[~2022-07-29] MED LIST changes: +FLUT50SP17 NARES; -FLUTISP NARES
[2022-07-29 14:01] LABS: BASO % 1.1 % (0.0-1.0); EOS # 0.2 10^3/uL (0.0-0.5); EOS % 4.8 % (0.0-3.0); HEMOGLOBIN 12.1 g/dl (12.0-15.5); LYMPH # 1.3 10^3/uL (1.5-5.0); LYMPH % 34.4 % (24.0-44.0); MEAN CORPUSCULAR HEMOGLOBIN 29.8 pg (27.0-33.0); MEAN CORPUSCULAR HGB CONC 31.8 g/dl (32.0-36.5); MEAN CORPUSCULAR VOLUME 93.6 fl (80.0-96.0); MONO # 0.4 10^3/uL (0.0-0.8); MONO % 9.8 % (2.0-8.0); NEUTROPHILS # 1.9 10^3/uL (1.5-8.5); NEUTROPHILS % 49.6 % (36.0-66.0); PLATELET COUNT, AUTOMATED 231 10^3/uL (150-450); RED BLOOD COUNT 4.06 10^6/uL (4.00-5.40); WHITE BLOOD COUNT 3.8 10^3/uL (4.0-10.0)
[2022-07-29 14:33] LABS: BLOOD UREA NITROGEN 14 MG/DL (9-23); CREATININE FOR GFR 0.71 MG/DL (0.55-1.30); GLOMERULAR FILTRATION RATE > 60.0 (>39); IRON (FE) 59 UG/DL (50-170); PERCENT SATURATION 18.6 % (13.2-45.0); TOTAL IRON BINDING CAPACITY 318 UG/DL (250-425)
[2022-07-29 14:35] LABS: FERRITIN 26.1 NG/ML (7.3-270.7); FOLATE 21.3 NG/ML (>5.4)
[2022-07-29 14:36] LABS: VITAMIN B12 LEVEL > 2000 PG/ML (211-911)
== END ==
LOC: M PLALAB 11:58
PROVIDERS: ATTEND Internal Medicine Gastroenterology
DX: D64.9 Anemia, unspecified (principal)

== ENCOUNTER → 2022-08-22 | Outpatient (CLI) | payer MEDICARE, OTHER ==
[~2022-08-22] MED LIST changes: +ISOVUE-370 76% 100ML VIAL As Ordered ONE; -LOSA100T45 PO; +LOSA100T46 PO
== END ==
LOC: M RAD 13:35
PROVIDERS: ATTEND Internal Medicine Hematology
DX: K11.8 Other diseases of salivary glands (principal); R22.2 Localized swelling, mass and lump, trunk; I70.0 Atherosclerosis of aorta; I25.10 Atherosclerotic heart disease of native coronary artery without angina pectoris
CPT/HCPCS: 70470; 70491; 71260; Q9967

== ENCOUNTER → 2022-08-27 | Outpatient (CLI) | payer MEDICARE, OTHER ==
[~2022-08-27] MED LIST changes: +GLUCAGON INJ 1MG VIAL As Ordered ONE; +NEULUMEX 0.1% SUSPENSION 450ML BOTTLE (FORMERLY VOLUMEN) As Ordered ONE
== END ==
LOC: M RAD 14:24
PROVIDERS: ATTEND Internal Medicine Gastroenterology
DX: R91.8 Other nonspecific abnormal finding of lung field (principal); K44.9 Diaphragmatic hernia without obstruction or gangrene; K76.0 Fatty (change of) liver, not elsewhere classified; M19.90 Unspecified osteoarthritis, unspecified site

== ENCOUNTER → 2022-09-01 | Outpatient (CLI) | payer MEDICARE, OTHER ==
[~2022-09-01] MED LIST changes: -GLUCAGON INJ 1MG VIAL As Ordered ONE; -ISOVUE-370 76% 100ML VIAL As Ordered ONE; -NEULUMEX 0.1% SUSPENSION 450ML BOTTLE (FORMERLY VOLUMEN) As Ordered ONE
[2022-09-01 15:53] LABS: BASO % 0.4 % (0.0-1.0); EOS # 0.1 10^3/uL (0.0-0.5); EOS % 2.9 % (0.0-3.0); HEMATOCRIT 36.2 % (36.0-47.0); HEMOGLOBIN 11.7 g/dl (12.0-15.5); LYMPH # 1.2 10^3/uL (1.5-5.0); LYMPH % 26.8 % (24.0-44.0); MEAN CORPUSCULAR HEMOGLOBIN 30.4 pg (27.0-33.0); MEAN CORPUSCULAR HGB CONC 32.3 g/dl (32.0-36.5); MONO # 0.7 10^3/uL (0.0-0.8); MONO % 14.3 % (2.0-8.0); NEUTROPHILS # 2.5 10^3/uL (1.5-8.5); NEUTROPHILS % 55.4 % (36.0-66.0); PLATELET COUNT, AUTOMATED 197 10^3/uL (150-450); RED BLOOD COUNT 3.85 10^6/uL (4.00-5.40); WHITE BLOOD COUNT 4.6 10^3/uL (4.0-10.0)
[2022-09-01 16:01] LABS: INR 2.71; PROTHROMBIN TIME 29.2 SECONDS (12.5-14.5)
[2022-09-01 16:18] LABS: ERYTHROCYTE SEDIMENTATION RATE 11 mm/hr (0-30)
[2022-09-01 16:21] LABS: ALBUMIN 3.9 G/DL (3.2-5.2); ALKALINE PHOSPHATASE 59 U/L (46-116); ALT/SGPT 16 U/L (7.0-40); AST/SGOT 12 U/L (<34); BILIRUBIN,TOTAL 0.4 MG/DL (0.3-1.2); BLOOD UREA NITROGEN 11 MG/DL (9-23); CALCIUM LEVEL 8.9 MG/DL (8.3-10.6); CARBON DIOXIDE LEVEL 28 MMOL/L (20-31); CHLORIDE LEVEL 102 MMOL/L (98-107); GLOMERULAR FILTRATION RATE > 60.0 (>39); GLUCOSE, FASTING 77 MG/DL (74-106); POTASSIUM SERUM 4.3 MMOL/L (3.5-5.1); SODIUM LEVEL 136 MMOL/L (136-145); TOTAL PROTEIN 6.2 G/DL (5.7-8.2)
[2022-09-01 16:22] LABS: FERRITIN 30.2 NG/ML (7.3-270.7)
[2022-09-01 16:33] LABS: MONO REFLEX EBV VCA IgM NEGATIVE (NEGATIVE)
== END ==
LOC: M PLALAB 13:49
PROVIDERS: ATTEND Physician Assistant
DX: J02.9 Acute pharyngitis, unspecified (principal); R05.1 Acute cough; R53.83 Other fatigue; Z79.01 Long term (current) use of anticoagulants

== ENCOUNTER → 2022-09-08 | Outpatient (REF) | payer MEDICARE, OTHER | LOC: M SFHCPLAZ 17:11 | PROVIDERS: ATTEND Physician Assistant | DX: R30.0 Dysuria (principal) ==

== ENCOUNTER → 2022-12-19 | Outpatient (CLI) | payer MEDICARE, OTHER ==
[~2022-12-19] MED LIST changes: +CYAN-1 PO; -CYAN100050 PO
[2022-12-19 14:33] LABS: BASO % 0.6 % (0.0-1.0); EOS # 0.1 10^3/uL (0.0-0.5); EOS % 2.3 % (0.0-3.0); HEMATOCRIT 38.4 % (36.0-47.0); HEMOGLOBIN 12.2 g/dl (12.0-15.5); LYMPH # 1.1 10^3/uL (1.5-5.0); MEAN CORPUSCULAR HEMOGLOBIN 30.1 pg (27.0-33.0); MEAN CORPUSCULAR HGB CONC 31.8 g/dl (32.0-36.5); MEAN CORPUSCULAR VOLUME 94.8 fl (80.0-96.0); MONO # 0.5 10^3/uL (0.0-0.8); MONO % 14.6 % (2.0-8.0); NEUTROPHILS # 1.8 10^3/uL (1.5-8.5); NEUTROPHILS % 52.2 % (36.0-66.0); PLATELET COUNT, AUTOMATED 179 10^3/uL (150-450); RED BLOOD COUNT 4.05 10^6/uL (4.00-5.40); WHITE BLOOD COUNT 3.5 10^3/uL (4.0-10.0)
[2022-12-19 14:50] LABS: C REACTIVE PROTEIN QUANTITATIV < 0.40 MG/DL (<1.0)
[2022-12-19 14:52] LABS: ALBUMIN 3.9 G/DL (3.2-5.2); ALKALINE PHOSPHATASE 54 U/L (46-116); ALT/SGPT 15 U/L (7.0-40); AST/SGOT < 8 U/L (<34); BILIRUBIN,TOTAL 0.3 MG/DL (0.3-1.2); BLOOD UREA NITROGEN 14 MG/DL (9-23); CALCIUM LEVEL 8.7 MG/DL (8.3-10.6); CARBON DIOXIDE LEVEL 30 MMOL/L (20-31); CHLORIDE LEVEL 102 MMOL/L (98-107); CREATININE FOR GFR 0.72 MG/DL (0.55-1.30); GLOMERULAR FILTRATION RATE > 60.0 (>39); GLUCOSE, FASTING 80 MG/DL (74-106); SODIUM LEVEL 138 MMOL/L (136-145); TOTAL PROTEIN 6.3 G/DL (5.7-8.2)
[2022-12-19 14:58] LABS: ERYTHROCYTE SEDIMENTATION RATE 5 mm/hr (0-30)
== END ==
LOC: M PLALAB 09:58
PROVIDERS: ATTEND Internal Medicine Rheumatology
DX: L40.50 Arthropathic psoriasis, unspecified (principal); Z79.899 Other long term (current) drug therapy; M15.9 Polyosteoarthritis, unspecified; R21 Rash and other nonspecific skin eruption

== ENCOUNTER → 2023-03-09 | Outpatient (CLI) | payer MEDICARE, OTHER ==
[~2023-03-09] MED LIST changes: +SERT25TA85 PO
[2023-03-09 16:27] LABS: EOS # 0.1 10^3/uL (0.0-0.5); EOS % 2.3 % (0.0-3.0); HEMATOCRIT 39.2 % (36.0-47.0); HEMOGLOBIN 12.4 g/dl (12.0-15.5); LYMPH # 0.9 10^3/uL (1.5-5.0); MEAN CORPUSCULAR HEMOGLOBIN 30.2 pg (27.0-33.0); MEAN CORPUSCULAR HGB CONC 31.6 g/dl (32.0-36.5); MEAN CORPUSCULAR VOLUME 95.6 fl (80.0-96.0); MONO # 0.5 10^3/uL (0.0-0.8); NEUTROPHILS # 2.3 10^3/uL (1.5-8.5); NEUTROPHILS % 60.4 % (36.0-66.0); PLATELET COUNT, AUTOMATED 180 10^3/uL (150-450); WHITE BLOOD COUNT 3.8 10^3/uL (4.0-10.0)
[2023-03-09 16:48] LABS: C REACTIVE PROTEIN QUANTITATIV < 0.40 MG/DL (<1.0)
[2023-03-09 16:49] LABS: ALBUMIN 3.6 G/DL (3.2-5.2); ALKALINE PHOSPHATASE 58 U/L (46-116); ALT/SGPT 14 U/L (7.0-40); AST/SGOT 10 U/L (<34); BILIRUBIN,TOTAL 0.4 MG/DL (0.3-1.2); BLOOD UREA NITROGEN 15 MG/DL (9-23); CALCIUM LEVEL 8.3 MG/DL (8.3-10.6); CARBON DIOXIDE LEVEL 26 MMOL/L (20-31); CHLORIDE LEVEL 104 MMOL/L (98-107); CREATININE FOR GFR 0.72 MG/DL (0.55-1.30); GLOMERULAR FILTRATION RATE > 60.0 (>39); GLUCOSE, FASTING 85 MG/DL (74-106); POTASSIUM SERUM 4.3 MMOL/L (3.5-5.1); SODIUM LEVEL 138 MMOL/L (136-145)
[2023-03-09 16:56] LABS: ERYTHROCYTE SEDIMENTATION RATE 5 mm/hr (0-30)
== END ==
LOC: M PLALAB 12:43
PROVIDERS: ATTEND Internal Medicine Rheumatology
DX: L40.50 Arthropathic psoriasis, unspecified (principal); Z79.899 Other long term (current) drug therapy; M15.9 Polyosteoarthritis, unspecified; R21 Rash and other nonspecific skin eruption

== ENCOUNTER → 2023-03-18 | Outpatient (CLI) | payer MEDICARE, OTHER ==
[2023-03-18 13:16] LABS: C REACTIVE PROTEIN QUANTITATIV < 0.40 MG/DL (<1.0)
[2023-03-18 13:18] LABS: ALBUMIN 3.5 G/DL (3.2-5.2); ALKALINE PHOSPHATASE 52 U/L (46-116); ALT/SGPT 18 U/L (7.0-40); AST/SGOT 10 U/L (<34); BILIRUBIN,TOTAL 0.4 MG/DL (0.3-1.2); BLOOD UREA NITROGEN 12 MG/DL (9-23); CALCIUM LEVEL 8.5 MG/DL (8.3-10.6); CARBON DIOXIDE LEVEL 29 MMOL/L (20-31); CHLORIDE LEVEL 109 MMOL/L (98-107); CHOLESTEROL LEVEL 248 MG/DL (<200); CHOLESTEROL RISK RATIO 2.62 (<5); CREATININE FOR GFR 0.73 MG/DL (0.55-1.30); GLOMERULAR FILTRATION RATE > 60.0 (>39); GLUCOSE, FASTING 89 MG/DL (74-106); HDL CHOLESTEROL 94.3 MG/DL (>40); IRON (FE) 51 UG/DL (50-170); LDL CHOLESTEROL 138.9 MG/DL (<100); NON-HDL-C 153.7 MG/DL; POTASSIUM SERUM 4.4 MMOL/L (3.5-5.1); SODIUM LEVEL 145 MMOL/L (136-145); TRIGLYCERIDES LEVEL 74 MG/DL (<150)
[2023-03-18 13:19] LABS: FREE T4 0.96 NG/DL (0.89-1.76); HEMATOCRIT 37.4 % (36.0-47.0); HEMOGLOBIN 12.1 g/dl (12.0-15.5); MEAN CORPUSCULAR HEMOGLOBIN 31.4 pg (27.0-33.0); MEAN CORPUSCULAR HGB CONC 32.4 g/dl (32.0-36.5); MEAN CORPUSCULAR VOLUME 97.1 fl (80.0-96.0); PLATELET COUNT, AUTOMATED 168 10^3/uL (150-450); RED BLOOD COUNT 3.85 10^6/uL (4.00-5.40); THYROID STIMULATING HORMONE 2.355 uIU/ML (0.55-4.78); WHITE BLOOD COUNT 3.2 10^3/uL (4.0-10.0)
[2023-03-18 13:20] LABS: TOTAL 25(OH) VITAMIN D 53.4 NG/ML (20.0-100.0); VITAMIN B12 LEVEL 908 PG/ML (211-911)
[2023-03-18 13:41] LABS: HEMOGLOBIN A1c 5.2 % (4.0-6.0)
== END ==
LOC: M PLALAB 08:20
PROVIDERS: ATTEND Internal Medicine Hematology
DX: D50.0 Iron deficiency anemia secondary to blood loss (chronic) (principal); I10 Essential (primary) hypertension; R00.1 Bradycardia, unspecified; Z79.01 Long term (current) use of anticoagulants; Z95.2 Presence of prosthetic heart valve; Z79.899 Other long term (current) drug therapy

== ENCOUNTER 2023-04-18 22:26 | Emergency (ER) | payer MEDICARE, OTHER ==
[~2023-04-18 22:26] MED LIST changes: -FLUT50SP17 NARES; +FLUTISP NARES
[2023-04-18 22:30] VITALS: TEMP 98.6
[2023-04-19] MEDS ORDERED: traMADol 50 MG TAB PO ONE (00:45)
[2023-04-19 01:23] LABS: BASO % 0.5 % (0.0-1.0); EOS # 0.1 10^3/uL (0.0-0.5); EOS % 0.9 % (0.0-3.0); HEMATOCRIT 35.8 % (36.0-47.0); HEMOGLOBIN 11.7 g/dl (12.0-15.5); LYMPH % 17.7 % (24.0-44.0); MEAN CORPUSCULAR HEMOGLOBIN 30.6 pg (27.0-33.0); MEAN CORPUSCULAR HGB CONC 32.7 g/dl (32.0-36.5); MEAN CORPUSCULAR VOLUME 93.7 fl (80.0-96.0); MONO # 0.5 10^3/uL (0.0-0.8); MONO % 8.9 % (2.0-8.0); NEUTROPHILS # 4.1 10^3/uL (1.5-8.5); NEUTROPHILS % 71.8 % (36.0-66.0); PLATELET COUNT, AUTOMATED 164 10^3/uL (150-450); RED BLOOD COUNT 3.82 10^6/uL (4.00-5.40); WHITE BLOOD COUNT 5.7 10^3/uL (4.0-10.0)
[2023-04-19 01:38] LABS: INR 2.03; PROTHROMBIN TIME 22.3 SECONDS (12.5-14.5)
[2023-04-19 03:04] LABS: CARBON DIOXIDE LEVEL 26 MMOL/L (20-31); CK-MB VALUE MASS < 1.0 NG/ML (<3.6); CPK CREATINE PHOSPHOKINASE 74 U/L (34-145); MB/CK RELATIVE INDEX 1.35 (< OR =4)
[2023-04-19 03:21] LABS: BLOOD UREA NITROGEN 15 MG/DL (9-23); CALCIUM LEVEL 8.3 MG/DL (8.3-10.6); CHLORIDE LEVEL 110 MMOL/L (98-107); CREATININE FOR GFR 0.68 MG/DL (0.55-1.30); GLOMERULAR FILTRATION RATE > 60.0 (>39); GLUCOSE, FASTING 101 MG/DL (74-106); POTASSIUM SERUM 4.1 MMOL/L (3.5-5.1); SODIUM LEVEL 143 MMOL/L (136-145)
[2023-04-19 03:31] VITALS: BP 188/76
[2023-04-19] MEDS ORDERED: OXYCODONE/APAP 5MG/325MG(HOME DOSE PACK) PO ONE (03:35)
[2023-04-19 03:45] VITALS: O2SAT 96
== END 2023-04-19 03:58 | disposition home or self-care (01) ==
LOC: M ED 22:26
DX: S00.93XA Contusion of unspecified part of head, initial encounter (principal); W01.0XXA Fall on same level from slipping, tripping and stumbling without subsequent striking against object, initial encounter; Y92.009 Unspecified place in unspecified non-institutional (private) residence as the place of occurrence of the external cause; R29.6 Repeated falls; Z79.01 Long term (current) use of anticoagulants; Z79.899 Other long term (current) drug therapy; Y93.9 Activity, unspecified; Y99.9 Unspecified external cause status

== ENCOUNTER → 2023-06-08 | Outpatient (CLI) | payer MEDICARE, OTHER ==
[~2023-06-08] MED LIST changes: -HYDR-3910 PO; +HYDR25TA87 PO
[2023-06-08 13:47] LABS: BLOOD UREA NITROGEN 13 MG/DL (9-23); CREATININE FOR GFR 0.77 MG/DL (0.55-1.30); GLOMERULAR FILTRATION RATE > 60.0 (>39)
== END ==
LOC: M PLALAB 08:39
PROVIDERS: ATTEND Psychiatry & Neurology Neurology
DX: I10 Essential (primary) hypertension (principal)

== ENCOUNTER → 2023-08-13 | Outpatient (REF) | payer MEDICARE, OTHER | LOC: M SFHCRHEU 09:35 | PROVIDERS: ATTEND Internal Medicine Rheumatology | DX: L40.50 Arthropathic psoriasis, unspecified (principal); Z79.899 Other long term (current) drug therapy; M15.9 Polyosteoarthritis, unspecified; R21 Rash and other nonspecific skin eruption ==

== ENCOUNTER → 2023-08-27 | Outpatient (CLI) | payer MEDICARE, OTHER ==
[~2023-08-27] MED LIST changes: -ZOLP6.2517 PO; +ZOLP6.2526 PO
[2023-08-27 10:32] LABS: INR 2.17; PROTHROMBIN TIME 23.4 SECONDS (12.5-14.5)
== END ==
LOC: M PLALAB 08:24
PROVIDERS: ATTEND Internal Medicine Hematology
DX: Z79.01 Long term (current) use of anticoagulants (principal)

== ENCOUNTER → 2023-09-11 | Outpatient (REF) | payer MEDICARE, OTHER | LOC: M SFHCPLAZ 14:56 | PROVIDERS: ATTEND Physician Assistant | DX: R35.0 Frequency of micturition (principal); R09.81 Nasal congestion ==

== ENCOUNTER → 2023-09-16 | Outpatient (CLI) | payer MEDICARE, OTHER ==
[2023-09-16 14:34] LABS: BASO % 0.9 % (0.0-1.0); EOS # 0.1 10^3/uL (0.0-0.5); EOS % 2.6 % (0.0-3.0); HEMATOCRIT 40.6 % (36.0-47.0); HEMOGLOBIN 13.2 g/dl (12.0-15.5); LYMPH # 1.3 10^3/uL (1.5-5.0); LYMPH % 37.9 % (24.0-44.0); MEAN CORPUSCULAR HEMOGLOBIN 30.8 pg (27.0-33.0); MEAN CORPUSCULAR HGB CONC 32.5 g/dl (32.0-36.5); MEAN CORPUSCULAR VOLUME 94.9 fl (80.0-96.0); MONO # 0.5 10^3/uL (0.0-0.8); MONO % 13.3 % (2.0-8.0); NEUTROPHILS # 1.6 10^3/uL (1.5-8.5); PLATELET COUNT, AUTOMATED 221 10^3/uL (150-450); RED BLOOD COUNT 4.28 10^6/uL (4.00-5.40); WHITE BLOOD COUNT 3.5 10^3/uL (4.0-10.0)
[2023-09-16 15:04] LABS: C REACTIVE PROTEIN QUANTITATIV < 0.40 MG/DL (<1.0)
[2023-09-16 15:05] LABS: ALBUMIN 3.7 G/DL (3.2-5.2); ALKALINE PHOSPHATASE 48 U/L (46-116); ALT/SGPT 32 U/L (7.0-40); AST/SGOT 16 U/L (<34); BILIRUBIN,TOTAL 0.4 MG/DL (0.3-1.2); BLOOD UREA NITROGEN 15 MG/DL (9-23); CALCIUM LEVEL 8.8 MG/DL (8.3-10.6); CARBON DIOXIDE LEVEL 30 MMOL/L (20-31); CHLORIDE LEVEL 101 MMOL/L (98-107); CREATININE FOR GFR 0.67 MG/DL (0.55-1.30); GLOMERULAR FILTRATION RATE > 60.0 (>39); GLUCOSE, FASTING 85 MG/DL (74-106); POTASSIUM SERUM 4.8 MMOL/L (3.5-5.1); SODIUM LEVEL 133 MMOL/L (136-145)
[2023-09-16 15:08] LABS: ERYTHROCYTE SEDIMENTATION RATE 5 mm/hr (0-30)
== END ==
LOC: M PLALAB 09:09
PROVIDERS: ATTEND Internal Medicine Rheumatology
DX: L40.50 Arthropathic psoriasis, unspecified (principal); M15.9 Polyosteoarthritis, unspecified; R21 Rash and other nonspecific skin eruption; Z79.899 Other long term (current) drug therapy

== ENCOUNTER 2023-10-12 18:39 | Emergency (ER) | payer MEDICARE, OTHER ==
[~2023-10-12] VITALS: Ht 165.1 cm; Wt 81.8 kg
[2023-10-12 19:00] VITALS: TEMP 96.5
[2023-10-12 19:32] LABS: BASO % 0.8 % (0.0-1.0); EOS # 0.1 10^3/uL (0.0-0.5); EOS % 1.9 % (0.0-3.0); HEMATOCRIT 36.9 % (36.0-47.0); HEMOGLOBIN 12.1 g/dl (12.0-15.5); LYMPH # 1.1 10^3/uL (1.5-5.0); LYMPH % 22.3 % (24.0-44.0); MEAN CORPUSCULAR HEMOGLOBIN 31.3 pg (27.0-33.0); MEAN CORPUSCULAR HGB CONC 32.8 g/dl (32.0-36.5); MEAN CORPUSCULAR VOLUME 95.6 fl (80.0-96.0); MONO # 0.6 10^3/uL (0.0-0.8); MONO % 13.4 % (2.0-8.0); NEUTROPHILS # 2.9 10^3/uL (1.5-8.5); NEUTROPHILS % 61.4 % (36.0-66.0); PLATELET COUNT, AUTOMATED 207 10^3/uL (150-450); RED BLOOD COUNT 3.86 10^6/uL (4.00-5.40); WHITE BLOOD COUNT 4.7 10^3/uL (4.0-10.0)
[2023-10-12] MEDS: NITROGLYCERIN 2% OINT 1 GM *U/D* PKT TOP ONE (19:54)
[2023-10-12 20:02] LABS: CK-MB VALUE MASS < 1.0 NG/ML (<3.6)
[2023-10-12 20:08] LABS: C REACTIVE PROTEIN QUANTITATIV < 0.40 MG/DL (<1.0)
[2023-10-12 20:10] LABS: ALBUMIN 3.5 G/DL (3.2-5.2); ALKALINE PHOSPHATASE 49 U/L (46-116); ALT/SGPT 26 U/L (7.0-40); AST/SGOT 14 U/L (<34); BILIRUBIN,DIRECT 0.1 MG/DL (<0.4); BILIRUBIN,TOTAL 0.4 MG/DL (0.3-1.2); BLOOD UREA NITROGEN 19 MG/DL (9-23); CARBON DIOXIDE LEVEL 30 MMOL/L (20-31); CHLORIDE LEVEL 105 MMOL/L (98-107); CREATININE FOR GFR 0.66 MG/DL (0.55-1.30); GLOMERULAR FILTRATION RATE > 60.0 (>39); GLUCOSE, FASTING 74 MG/DL (74-106); POTASSIUM SERUM 4.1 MMOL/L (3.5-5.1); SODIUM LEVEL 137 MMOL/L (136-145); TOTAL PROTEIN 5.8 G/DL (5.7-8.2)
[2023-10-12 20:12] LABS: CPK CREATINE PHOSPHOKINASE 92 U/L (34-145); MB/CK RELATIVE INDEX 1.08 (< OR =4)
[2023-10-12 20:16] LABS: INR 2.33; PROTHROMBIN TIME 24.7 SECONDS (12.5-14.5)
[2023-10-12 21:27] LABS: MB/CK RELATIVE INDEX 1.08 (< OR =4)
[2023-10-12 21:43] VITALS: BP 189/84
[2023-10-12] MEDS: hydrALAZINE 20MG/ML 1ML VIAL IV ONE (21:43)
[2023-10-12] MEDS ORDERED: HYDR25TA87 PO (23:14)
[2023-10-12 23:15] VITALS: O2SAT 94
[2023-10-12 23:16] VITALS: BP 154/85
== END 2023-10-12 23:37 | disposition home or self-care (01) ==
LOC: M ED 18:39
DX: I16.0 Hypertensive urgency (principal); I20.9 Angina pectoris, unspecified; I10 Essential (primary) hypertension; G43.909 Migraine, unspecified, not intractable, without status migrainosus; K21.9 Gastro-esophageal reflux disease without esophagitis; Z91.048 Other nonmedicinal substance allergy status; Z88.8 Allergy status to other drugs, medicaments and biological substances; Z79.01 Long term (current) use of anticoagulants; Z79.52 Long term (current) use of systemic steroids; Z79.811 Long term (current) use of aromatase inhibitors; Z79.899 Other long term (current) drug therapy; Z95.4 Presence of other heart-valve replacement
CPT/HCPCS: 71045; 80048; 80076; 82550; 82553; 84484; 85025; 85610; 86140; 93005; 93041; 94760; 96374; 99285; J0360

== ENCOUNTER → 2023-10-28 | Outpatient (CLI) | payer MEDICARE, OTHER ==
[2023-10-28 11:09] LABS: BLOOD UREA NITROGEN 12 MG/DL (9-23); CREATININE FOR GFR 0.71 MG/DL (0.55-1.30); GLOMERULAR FILTRATION RATE > 60.0 (>39)
== END ==
LOC: M PLALAB 07:53
PROVIDERS: ATTEND Ophthalmology
DX: H53.15 Visual distortions of shape and size (principal)

== ENCOUNTER → 2023-10-28 | Outpatient (CLI) | payer MEDICARE, OTHER ==
[2023-10-28 10:16] LABS: APPEARANCE, URINE MANUAL CLEAR (CLEAR); COLOR, URINE MANUAL YELLOW (YELLOW)
[2023-10-28 10:17] LABS: BILIRUBIN, URINE MANUAL NEGATIVE (NEGATIVE); BLOOD URINE MANUAL NEGATIVE (NEGATIVE); GLUCOSE, URINE (UA) MANUAL NEGATIVE (NEGATIVE); KETONE, URINE MANUAL NEGATIVE (NEGATIVE); LEUKOCYTE ESTERASE, URINE MAN POSITIVE (NEGATIVE); NITRITE, URINE MANUAL NEGATIVE (NEGATIVE); PROTEIN, URINE MANUAL NEGATIVE (NEGATIVE); UROBILINOGEN, URINE MANUAL 4 MG mg/dl (NORMAL)
[2023-10-28 10:22] LABS: RBC, URINE NONE SEEN /hpf (0-3)
[2023-10-28 10:23] LABS: BACTERIA, URINE NONE SEEN; HYALINE CAST, URINE NONE SEEN /lpf (0-1); SQUAMOUS EPITHELIAL CELL URINE SMALL AMOUNT /hpf (SMALL AMT)
[2023-10-28 10:49] LABS: THYROID STIMULATING HORMONE 3.416 uIU/ML (0.55-4.78); TOTAL 25(OH) VITAMIN D 58.7 NG/ML (20.0-100.0)
[2023-10-28 10:52] LABS: FREE T4 1.16 NG/DL (0.89-1.76)
[2023-10-28 10:54] LABS: HEMOGLOBIN A1c 5.1 % (4.0-6.0)
[2023-10-28 10:56] LABS: CHOLESTEROL RISK RATIO 2.76 (<5); HDL CHOLESTEROL 105.7 MG/DL (>40); LDL CHOLESTEROL 171.9 MG/DL (<100); NON-HDL-C 186.3 MG/DL
[2023-10-28 11:10] LABS: CREATININE, URINE 124.2 MG/DL; MAU/CREAT RATIO 2.4 MCG/MG (0.0-30.0)
== END ==
LOC: M PLALAB 07:56
PROVIDERS: ATTEND Internal Medicine Hematology
DX: D64.9 Anemia, unspecified (principal); E78.2 Mixed hyperlipidemia; H53.15 Visual distortions of shape and size; Z79.899 Other long term (current) drug therapy

== ENCOUNTER → 2023-10-30 | Outpatient (CLI) | payer MEDICARE, OTHER ==
[~2023-10-30] MED LIST changes: +PROHANCE 279.3MG/ML 15ML VIAL ONE; +PROHANCE 279.3MG/ML 5ML VIAL ONE
== END ==
LOC: M PLAIMG 12:17
PROVIDERS: ATTEND Ophthalmology
DX: H53.15 Visual distortions of shape and size (principal)
CPT/HCPCS: 70553; A9576

== ENCOUNTER → 2023-11-10 | Outpatient (REF) | payer MEDICARE, OTHER ==
[~2023-11-10] MED LIST changes: -PROHANCE 279.3MG/ML 15ML VIAL ONE; -PROHANCE 279.3MG/ML 5ML VIAL ONE
== END ==
LOC: M SFHCRHEU 09:16
PROVIDERS: ATTEND Internal Medicine Rheumatology
DX: L40.50 Arthropathic psoriasis, unspecified (principal)

== ENCOUNTER → 2023-11-12 | Outpatient (CLI) | payer MEDICARE, OTHER | LOC: M RAD 14:44 | PROVIDERS: ATTEND Orthopaedic Surgery | DX: M54.2 Cervicalgia (principal); M43.12 Spondylolisthesis, cervical region; M47.812 Spondylosis without myelopathy or radiculopathy, cervical region; M48.02 Spinal stenosis, cervical region ==

== ENCOUNTER → 2024-01-08 | Outpatient (REF) | payer MEDICARE, OTHER | LOC: M SFHCPLAZ 16:53 | PROVIDERS: ATTEND Physician Assistant | DX: R39.9 Unspecified symptoms and signs involving the genitourinary system (principal) ==

== ENCOUNTER → 2024-05-02 | Outpatient (CLI) | payer MEDICARE, OTHER ==
[~2024-05-02] MED LIST changes: +GABA-1172 PO; -GABA-282 PO
[2024-05-02 10:51] LABS: BASO # 0.1 10^3/uL (0.0-0.2); BASO % 1.1 % (0.0-1.0); EOS # 0.1 10^3/uL (0.0-0.5); EOS % 3.1 % (0.0-3.0); HEMATOCRIT 38.1 % (36.0-47.0); HEMOGLOBIN 12.1 g/dl (12.0-15.5); LYMPH # 1.2 10^3/uL (1.5-5.0); LYMPH % 26.5 % (24.0-44.0); MEAN CORPUSCULAR HEMOGLOBIN 30.3 pg (27.0-33.0); MEAN CORPUSCULAR HGB CONC 31.8 g/dl (32.0-36.5); MEAN CORPUSCULAR VOLUME 95.5 fl (80.0-96.0); MONO # 0.5 10^3/uL (0.0-0.8); MONO % 10.2 % (2.0-8.0); NEUTROPHILS # 2.7 10^3/uL (1.5-8.5); NEUTROPHILS % 59.1 % (36.0-66.0); PLATELET COUNT, AUTOMATED 216 10^3/uL (150-450); RED BLOOD COUNT 3.99 10^6/uL (4.00-5.40); WHITE BLOOD COUNT 4.5 10^3/uL (4.0-10.0)
[2024-05-02 10:58] LABS: ALBUMIN 3.8 G/DL (3.2-5.2); ALKALINE PHOSPHATASE 58 U/L (35-104); ALT/SGPT 20 U/L (7.0-40); AST/SGOT 12 U/L (<34); BILIRUBIN,TOTAL 0.5 MG/DL (0.3-1.2); BLOOD UREA NITROGEN 17 MG/DL (9-23); C REACTIVE PROTEIN QUANTITATIV < 0.50 MG/DL (<1.0); CARBON DIOXIDE LEVEL 28 MMOL/L (20-31); CHLORIDE LEVEL 108 MMOL/L (98-107); CREATININE FOR GFR 0.79 MG/DL (0.55-1.30); GLOMERULAR FILTRATION RATE > 60.0 (>39); GLUCOSE, FASTING 94 MG/DL (74-106); POTASSIUM SERUM 4.6 MMOL/L (3.5-5.1); SODIUM LEVEL 145 MMOL/L (136-145); TOTAL PROTEIN 6.4 G/DL (5.7-8.2)
[2024-05-02 11:01] LABS: ERYTHROCYTE SEDIMENTATION RATE 7 mm/hr (0-30)
== END ==
LOC: M PLALAB 08:16
PROVIDERS: ATTEND Internal Medicine Rheumatology
DX: L40.50 Arthropathic psoriasis, unspecified (principal)

== ENCOUNTER → 2024-05-12 | Outpatient (CLI) | payer MEDICARE, OTHER ==
[2024-05-12 18:52] LABS: ALBUMIN 3.8 G/DL (3.2-5.2); ALKALINE PHOSPHATASE 61 U/L (35-104); ALT/SGPT 22 U/L (7.0-40); AST/SGOT 15 U/L (<34); BILIRUBIN,TOTAL 0.3 MG/DL (0.3-1.2); BLOOD UREA NITROGEN 22 MG/DL (9-23); CARBON DIOXIDE LEVEL 30 MMOL/L (20-31); CHLORIDE LEVEL 104 MMOL/L (98-107); CREATININE FOR GFR 0.92 MG/DL (0.55-1.30); GLOMERULAR FILTRATION RATE > 60.0 (>39); GLUCOSE, FASTING 87 MG/DL (74-106); MAGNESIUM LEVEL 2.1 MG/DL (1.8-2.4); POTASSIUM SERUM 4.8 MMOL/L (3.5-5.1); SODIUM LEVEL 140 MMOL/L (136-145); TOTAL PROTEIN 6.7 G/DL (5.7-8.2)
[2024-05-12 18:53] LABS: THYROID STIMULATING HORMONE 1.658 uIU/ML (0.55-4.78)
[2024-05-12 18:54] LABS: FREE T4 0.97 NG/DL (0.89-1.76)
== END ==
LOC: M PLALAB 15:58
PROVIDERS: ATTEND Family Medicine
DX: I50.33 Acute on chronic diastolic (congestive) heart failure (principal); I48.91 Unspecified atrial fibrillation; R61 Generalized hyperhidrosis

== ENCOUNTER → 2024-06-28 | Outpatient (CLI) | payer MEDICARE, OTHER ==
[~2024-06-28] MED LIST changes: +ALBU8.5H INH; +AZEL1SPR3; +DILT-67 PO; +ECHI500C PO; +LEFL10TA12 PO; +MONT10TA97 PO; +PANT20TA6 PO; +ROSU5TAB49 PO; +TRAZ-189 PO; +VITA-243 PO; +ZOLP10TA2 PO
[2024-06-28 14:29] LABS: CHOLESTEROL RISK RATIO 1.68 (<5); HDL CHOLESTEROL 108.7 MG/DL (>40); LDL CHOLESTEROL 58.1 MG/DL (<100); NON-HDL-C 74.3 MG/DL
== END ==
LOC: M PLALAB 10:13
PROVIDERS: ATTEND Internal Medicine Cardiovascular Disease
DX: E78.2 Mixed hyperlipidemia (principal)

== ENCOUNTER → 2024-06-28 | Outpatient (CLI) | payer MEDICARE, OTHER ==
[2024-06-28 14:28] LABS: BLOOD UREA NITROGEN 13 MG/DL (9-23); CREATININE FOR GFR 0.74 MG/DL (0.55-1.30); GLOMERULAR FILTRATION RATE > 60.0 (>39)
== END ==
LOC: M PLALAB 10:16
PROVIDERS: ATTEND Physician Assistant Medical
DX: R10.32 Left lower quadrant pain (principal); R10.12 Left upper quadrant pain; R11.0 Nausea

== ENCOUNTER → 2024-07-08 | Outpatient (CLI) | payer MEDICARE, OTHER ==
[~2024-07-08] MED LIST changes: +ISOVUE-370 76% 100ML VIAL As Ordered ONE
== END ==
LOC: M RAD 13:50
PROVIDERS: ATTEND Physician Assistant Medical
DX: R10.12 Left upper quadrant pain (principal); R10.32 Left lower quadrant pain; R11.0 Nausea; R16.0 Hepatomegaly, not elsewhere classified; Z98.84 Bariatric surgery status
CPT/HCPCS: 74177; Q9967

== ENCOUNTER 2024-07-12 11:50 | Day surgery (SDC) | payer MEDICARE, OTHER ==
[~2024-07-12] VITALS: Ht 165.1 cm; Wt 86.5 kg
[~2024-07-12 11:50] MED LIST changes: +GLYCOPYRROLATE INJ 0.2 MG/ML 2 ML VIAL As Ordered ONE; -ISOVUE-370 76% 100ML VIAL As Ordered ONE; +LIDOCAINE 2% 100MG/5ML SDV (FOR ANES.) As Ordered ONE; +fentaNYL 100 MCG/2 ML INJECTION As Ordered ONE; +propofoL 500 MG/50 ML VIAL As Ordered ONE
[2024-07-12 13:55] VITALS: TEMP 97.7
[2024-07-12 14:14] VITALS: BP 159/89; O2SAT 93
== END 2024-07-12 14:20 | disposition home or self-care (01) ==
LOC: M OPP 11:50
PROVIDERS: ATTEND Internal Medicine Gastroenterology
DX: K64.8 Other hemorrhoids (principal); R10.12 Left upper quadrant pain; R10.32 Left lower quadrant pain; Z98.84 Bariatric surgery status; Z88.8 Allergy status to other drugs, medicaments and biological substances; Z91.048 Other nonmedicinal substance allergy status; Z79.51 Long term (current) use of inhaled steroids; Z79.01 Long term (current) use of anticoagulants; Z79.899 Other long term (current) drug therapy; Z95.2 Presence of prosthetic heart valve; J45.909 Unspecified asthma, uncomplicated
CPT/HCPCS: 43235; 45378; J1596; J3010

== ENCOUNTER → 2024-09-07 | Outpatient (REF) | payer MEDICARE, OTHER ==
[~2024-09-07] MED LIST changes: -GLYCOPYRROLATE INJ 0.2 MG/ML 2 ML VIAL As Ordered ONE; -LIDOCAINE 2% 100MG/5ML SDV (FOR ANES.) As Ordered ONE; +TOPI-256 PO; +TOPI-257 PO; -TOPI100T9 PO; -TOPI25TA10 PO; -fentaNYL 100 MCG/2 ML INJECTION As Ordered ONE; -propofoL 500 MG/50 ML VIAL As Ordered ONE
== END ==
LOC: M SFHCCAPE 13:46
PROVIDERS: ATTEND Physician Assistant Medical
DX: R30.0 Dysuria (principal)

== ENCOUNTER → 2024-11-09 | Outpatient (CLI) | payer MEDICARE, OTHER ==
[~2024-11-09] MED LIST changes: +DIVA-41 PO; -DIVA500T94 PO
[2024-11-09 13:29] LABS: PLATELET COUNT, AUTOMATED 222 10^3/uL (150-450)
[2024-11-09 14:30] LABS: ALT/SGPT 23.0 U/L (7.0-40); AST/SGOT 17.0 U/L (<34); CALCIUM LEVEL 8.7 MG/DL (8.3-10.6); CARBON DIOXIDE LEVEL 27.0 MMOL/L (20-31); CHLORIDE LEVEL 102.0 MMOL/L (98-107); CREATININE FOR GFR 0.74 MG/DL (0.55-1.30); GLOMERULAR FILTRATION RATE 85.4 (>39); MAGNESIUM LEVEL 2.0 MG/DL (1.8-2.4); POTASSIUM SERUM 4.6 MMOL/L (3.5-5.1); SODIUM LEVEL 139.0 MMOL/L (136-145)
== END ==
LOC: M PLALAB 11:03
PROVIDERS: ATTEND Internal Medicine Cardiovascular Disease
DX: R60.9 Edema, unspecified (principal); I10 Essential (primary) hypertension; I48.19 Other persistent atrial fibrillation

== ENCOUNTER → 2024-11-09 | Outpatient (CLI) | payer MEDICARE, OTHER ==
[2024-11-09 13:28] LABS: PLATELET COUNT, AUTOMATED 232 10^3/uL (150-450)
[2024-11-09 14:27] LABS: IRON (FE) 61 UG/DL (50-170); PERCENT SATURATION 19.0 % (13.2-45.0)
[2024-11-09 15:07] LABS: HEPATITIS C VIRUS ABY INDEX < 0.02 INDEX (<0.8)
[2024-11-09 15:09] LABS: ALT/SGPT 23 U/L (7.0-40); AST/SGOT 18 U/L (<34)
== END ==
LOC: M PLALAB 11:01
PROVIDERS: ATTEND Physician Assistant Medical
DX: R16.0 Hepatomegaly, not elsewhere classified (principal); R60.9 Edema, unspecified; I10 Essential (primary) hypertension; I48.19 Other persistent atrial fibrillation; L40.50 Arthropathic psoriasis, unspecified

== ENCOUNTER → 2024-11-09 | Outpatient (CLI) | payer MEDICARE, OTHER ==
[2024-11-09 13:31] LABS: BASO # 0.0 10^3/uL (0.0-0.2); BASO % 1.3 % (0.0-1.0); EOS # 0.1 10^3/uL (0.0-0.5); EOS % 4.4 % (0.0-3.0); LYMPH # 0.9 10^3/uL (1.5-5.0); LYMPH % 26.9 % (24.0-44.0); MONO # 0.4 10^3/uL (0.0-0.8); MONO % 13.9 % (2.0-8.0); NEUTROPHILS # 1.7 10^3/uL (1.5-8.5); NEUTROPHILS % 53.2 % (36.0-66.0); PLATELET COUNT, AUTOMATED 221 10^3/uL (150-450)
[2024-11-09 13:40] LABS: ERYTHROCYTE SEDIMENTATION RATE 8 mm/hr (0-30)
[2024-11-09 14:26] LABS: C REACTIVE PROTEIN QUANTITATIV < 0.50 MG/DL (<1.0)
[2024-11-09 14:28] LABS: ALT/SGPT 24 U/L (7.0-40); AST/SGOT 18 U/L (<34); CALCIUM LEVEL 8.8 MG/DL (8.3-10.6); CARBON DIOXIDE LEVEL 27 MMOL/L (20-31); CHLORIDE LEVEL 101 MMOL/L (98-107); CREATININE FOR GFR 0.73 MG/DL (0.55-1.30); GLOMERULAR FILTRATION RATE 86.8 (>39); POTASSIUM SERUM 4.5 MMOL/L (3.5-5.1); SODIUM LEVEL 139 MMOL/L (136-145)
== END ==
LOC: M PLALAB 11:06
PROVIDERS: ATTEND Internal Medicine Rheumatology
DX: L40.50 Arthropathic psoriasis, unspecified (principal)

== ENCOUNTER → 2024-12-12 | Outpatient (CLI) | payer MEDICARE, OTHER ==
[~2024-12-12] MED LIST changes: +ADVA230A; +ISOVUE-370 76% 100 ML VIAL As Ordered ONE; +SUMA25TA3; +TIZA10TA; +TORS100T
== END ==
LOC: M RAD 13:53
PROVIDERS: ATTEND Internal Medicine Medical Oncology
DX: I89.0 Lymphedema, not elsewhere classified (principal)
CPT/HCPCS: 74177; Q9967

== ENCOUNTER → 2024-12-23 | Outpatient (CLI) | payer MEDICARE, OTHER ==
[~2024-12-23] MED LIST changes: -ISOVUE-370 76% 100 ML VIAL As Ordered ONE; +ISOVUE-370 76% 100 ML VIAL ONE
== END ==
LOC: M PLAIMG 13:27
PROVIDERS: ATTEND Internal Medicine Medical Oncology
DX: R59.0 Localized enlarged lymph nodes (principal); Z98.1 Arthrodesis status; M47.812 Spondylosis without myelopathy or radiculopathy, cervical region
CPT/HCPCS: 70491; Q9967

== ENCOUNTER → 2025-03-20 | Outpatient (CLI) | payer MEDICARE, OTHER ==
[~2025-03-20] MED LIST changes: -ISOVUE-370 76% 100 ML VIAL ONE; +ZOLP10TA11 PO; -ZOLP10TA2 PO; -ZOLP5TAB PO; +ZOLP5TAB9 PO
[2025-03-20 13:22] LABS: C REACTIVE PROTEIN QUANTITATIV < 0.50 MG/DL (<1.0)
[2025-03-20 13:23] LABS: ALT/SGPT 27 U/L (7.0-40); AST/SGOT 20 U/L (<34); BASO # 0.0 10^3/uL (0.0-0.2); BASO % 1.0 % (0.0-1.0); CALCIUM LEVEL 8.6 MG/DL (8.3-10.6); CARBON DIOXIDE LEVEL 29 MMOL/L (20-31); CHLORIDE LEVEL 107 MMOL/L (98-107); CREATININE FOR GFR 0.80 MG/DL (0.55-1.30); EOS # 0.1 10^3/uL (0.0-0.5); EOS % 2.2 % (0.0-3.0); GLOMERULAR FILTRATION RATE 77.8 (>39); LYMPH # 1.0 10^3/uL (1.5-5.0); LYMPH % 25.3 % (24.0-44.0); MONO # 0.5 10^3/uL (0.0-0.8); MONO % 11.2 % (2.0-8.0); NEUTROPHILS # 2.4 10^3/uL (1.5-8.5); NEUTROPHILS % 60.1 % (36.0-66.0); PLATELET COUNT, AUTOMATED 205 10^3/uL (150-450); POTASSIUM SERUM 4.4 MMOL/L (3.5-5.1); SODIUM LEVEL 144 MMOL/L (136-145)
== END ==
LOC: M PLALAB 11:03
PROVIDERS: ATTEND Internal Medicine Rheumatology
DX: L40.50 Arthropathic psoriasis, unspecified (principal); Z79.899 Other long term (current) drug therapy; M15.9 Polyosteoarthritis, unspecified; R21 Rash and other nonspecific skin eruption